=== PATIENT | female | born 1970 | race Caucasian/White ===

== ENCOUNTER 2017-10-26 20:07 | Emergency (ER) | payer SELFPAY | END 2017-10-26 23:48 | disposition home or self-care (01) | LOC: ERS 20:07 | DX: E11.65 Type 2 diabetes mellitus with hyperglycemia (principal); E11.40 Type 2 diabetes mellitus with diabetic neuropathy, unspecified; F32.9 Major depressive disorder, single episode, unspecified; I10 Essential (primary) hypertension; E78.5 Hyperlipidemia, unspecified; F41.9 Anxiety disorder, unspecified; F17.210 Nicotine dependence, cigarettes, uncomplicated; Z79.84 Long term (current) use of oral hypoglycemic drugs | CPT/HCPCS: 36416; 93005 ==

== ENCOUNTER 2018-02-15 12:01 | Emergency (ER) | payer SELFPAY ==
[2018-02-15] MEDS ORDERED: Lorazepam 2 MG/ML VIAL ONE (13:13)
--- NOTE | 2018-02-15 13:30 | RAD ---
CHEST ONE VIEW: HISTORY: Chest pain. Shortness of breath. COMPARISON: 10/26/2017 FINDINGS: Heart size is within normal limits. There are postop sternotomy changes. The lungs are clear of inf iltrates. IMPRESSION: No active intrathoracic disease. POS: [facility]
[2018-02-15 13:40] LABS: #Basophils 0.1 thou/uL (0.0-0.2); #Eosinphils 0.3 thou/uL (0.0-0.7); #Lymphocytes 2.4 thou/uL (1.20-3.40); #Monocytes 0.6 thou/uL (0.11-0.59); #Neutrophils 4.1 thou/uL (1.40-6.50); %Basophils 0.8 % (0.0-1.0); %Eosinophils 3.5 % (0.0-10.0); %Lymphocytes 32.6 % (21.0-51.0); %Monocytes 8.4 % (0.0-10.0); %Neutrophils 54.7 % (42.0-75.0); Hemoglobin 13.1 g/dL (12.0-16.0); Mean Corpuscular HGB CONC 32.2 g/dL (32.0-36.0); Mean Corpuscular Hemoglobin 28.6 pg (27.0-31.0); Mean Corpuscular Volume 88.8 fL (78.0-98.0); Mean Platelet Volume 7.4 fL (7.4-10.4); Platelet Count 284 thou/uL (130-400); RBC Distribution Width 10.9 % (11.5-14.5); Red Blood Cell (RBC) Count 4.58 mill/uL (4.20-5.40); White Blood Cell (WBC) Count 7.5 thou/uL (4.8-10.8)
[2018-02-15 14:07] LABS: ALT (SGPT) 43 U/L (8-55); AST (SGOT) 33 U/L (5-34); Albumin 3.6 g/dL (3.5-5.0); Alkaline Phosphatase 89 U/L (40-150); Anion Gap 15 mmol/L (10-20); BUN (Urea Nitrogen) 18 mg/dL (7.0-18.7); Bilirubin, Total 0.4 mg/dL (0.2-1.2); CK (CPK) 47 U/L (29-168); Calc. Creatinine Clearance 0 mL/min (70-130); Calcium 9.5 mg/dL (7.8-10.44); Carbon Dioxide 28 mmol/L (22-29); Chloride 94 mmol/L (98-107); Estimated GFR-MDRD 42; Globulin 3.6 g/dL (2.4-3.5); Glucose 361 mg/dL (70-105); Lipase 49 U/L (8-78); Potassium 4.3 mmol/L (3.5-5.1); Protein, Total 7.2 g/dL (6.0-8.3); Sodium 133 mmol/L (136-145)
[2018-02-15 14:11] LABS: CKMB 1.3 ng/mL (0-6.6); Troponin I Less than 0.010 ng/mL (< 0.028)
[2018-02-15 14:43] LABS: Bilirubin Negative (Negative); Blood, Urine Small (Negative); Clarity CLOUDY (Clear); Glucose, Urine (Dipstick) 500 mg/dL (Negative); Leukocyte Moderate (Negative); Nitrite Negative (Negative); Protein, Urine (Dipstick) 100 mg/dL (Neg-Trace); Specific Gravity, Urine 1.008 (1.002-1.036); Urobilinogen 0.2 mg/dL (0.2-1.0); pH, Urine 6.5 (5.0-9.0)
[2018-02-15 14:46] LABS: Bacteria/HPF 4+ HPF (None Seen); Hyaline Casts/LPF 0-3 HYALINE CAST LPF (0-3 Hyaline); Squamous Epithelial 0-3 HPF (0-3)
--- NOTE | 2018-02-15 15:41 | CT ---
CT BRAIN WITHOUT CONTRAST: HISTORY: Headache, dizziness, fall a week ago with trauma to the head. FINDINGS: No evidence of infarct, hemorrhage, midline shift, or abnormal extraaxial fluid collections is seen. The ventricular size is normal and the basilar cisterns are patent. The bony calvarium is intact. There is a suggestion of an age-indeterminate fracture involving the right orbit. There is mucosal d isease in the left ethmoid sinuses. IMPRESSION: 1. No CT evidence of acute intracranial process. 2. Age-indeterminate probable right orbital fracture. Further evaluation with CT scan of the facia l bones is recommended. POS: [facility]
--- NOTE | 2018-02-15 15:50 | CT ---
CT FACE NONCONTRAST: Date: 02/15/18 HISTORY: Fall with facial injury. Abnormal CT head. FINDINGS: Coronal images best demonstrate inferior orbital fat protruding through the orbital floor. This measu res up to 1.1 cm diameter. It is very well circumscribed with well corticated margins of the cortical floor osseous defect. No fluid within the right maxillary sinus. The inferior rectus muscle is withi n normal limits. The mandible, globes, and zygomatic arches are intact. Mucosal thickening is apparent within the left ethmoid air cells without defect of the lamina papyracea. IMPRESSION: Abnormal involving the right orbital floor has the appearance of an old injury with protrusion of orb ital fat through the defect. No acute fractures are apparent. POS: [facility]
[2018-02-15 17:18] LABS: Troponin I Less than 0.010 ng/mL (< 0.028)
[2018-02-15] MEDS ORDERED: Morphine 2 MG/ML SYRINGE ONE (17:53)
[2018-02-15] MEDS ORDERED: diphenhydrAMINE 12.5 MG/5 ML UDCUP ONE (18:11)
--- NOTE | 2018-02-19 23:24 | EKG ---
Test Reason : Blood Pressure : / mmHG Vent. Rate : 088 BPM Atrial Rate : 088 BPM P-R Int : 130 ms QRS Dur : 064 ms QT Int : 368 ms P-R-T Axes : 056 020 096 degrees QTc Int : 445 ms Normal sinus rhythm Abnormal QRS-T angle, consider primary T wave abnormality Abnormal ECG Confirmed by JENNIFER ROBERTS DO ([id number]), assistant editor MAKENZIE VARGAS ([id number]) on 02/19/2018 11:24:33 PM Referred By: Confirmed By:JENNIFER ROBERTS DO
== END 2018-02-15 18:44 | disposition home or self-care (01) ==
LOC: ERS 12:01
DX: F41.9 Anxiety disorder, unspecified (principal); N39.0 Urinary tract infection, site not specified; I10 Essential (primary) hypertension; E11.9 Type 2 diabetes mellitus without complications; E78.5 Hyperlipidemia, unspecified; F32.9 Major depressive disorder, single episode, unspecified; Z79.84 Long term (current) use of oral hypoglycemic drugs; Z79.899 Other long term (current) drug therapy; Z79.82 Long term (current) use of aspirin
CPT/HCPCS: 36415; 36416; 70450; 70486; 71045; 80053; 81003; 81015; 82010; 82553; 83690; 83880; 84484; 85025; 85379; 87077; 87086; 87186; 93005; 96361; 96374; 96375; J2060; J2270

== ENCOUNTER 2018-04-22 12:53 | Observation (INO) | payer SELFPAY ==
[2018-04-22 13:28] LABS: #Eosinphils 0.3 thou/uL (0.0-0.7); #Lymphocytes 2.8 thou/uL (1.20-3.40); #Monocytes 0.5 thou/uL (0.11-0.59); #Neutrophils 4.3 thou/uL (1.40-6.50); %Basophils 0.5 % (0.0-1.0); %Eosinophils 3.6 % (0.0-10.0); %Monocytes 6.2 % (0.0-10.0); %Neutrophils 54.8 % (42.0-75.0); Hemoglobin 13.3 g/dL (12.0-16.0); Mean Corpuscular HGB CONC 35.2 g/dL (32.0-36.0); Mean Corpuscular Volume 88.1 fL (78.0-98.0); Mean Platelet Volume 8.2 fL (7.4-10.4); Platelet Count 259 thou/uL (130-400); RBC Distribution Width 11.4 % (11.5-14.5); White Blood Cell (WBC) Count 7.9 thou/uL (4.8-10.8)
[2018-04-22 13:55] LABS: ALT (SGPT) 34 U/L (8-55); AST (SGOT) 34 U/L (5-34); Albumin 3.8 g/dL (3.5-5.0); Alkaline Phosphatase 95 U/L (40-150); Anion Gap 14 mmol/L (10-20); BUN (Urea Nitrogen) 18 mg/dL (7.0-18.7); Bilirubin, Total 0.5 mg/dL (0.2-1.2); Calc. Creatinine Clearance 0 mL/min (70-130); Calcium 10.3 mg/dL (7.8-10.44); Carbon Dioxide 26 mmol/L (22-29); Chloride 96 mmol/L (98-107); Estimated GFR-MDRD 45; Glucose 390 mg/dL (70-105); Potassium 5.3 mmol/L (3.5-5.1); Protein, Total 7.8 g/dL (6.0-8.3); Sodium 131 mmol/L (136-145)
--- NOTE | 2018-04-22 16:25 | RAD ---
CHEST TWO VIEWS: HISTORY: Abnormal blood sugar and potassium. COMPARISON: 04/10/2016 FINDINGS: Sternotomy wires are noted. Normal cardiac silhouette. The pulmonary vessels and hilum are normal. Costophrenic angles are clear. No masses or consolidation. No pneumothorax or osseous abnormality. Old right clavicle injury is noted. IMPRESSION: No acute cardiopulmonary process. POS: [facility]
[2018-04-22 17:22] LABS: Bilirubin Negative (Negative); Blood, Urine Trace (Negative); Clarity CLEAR (Clear); Glucose, Urine (Dipstick) >=1000 mg/dL (Negative); Leukocyte Trace (Negative); Nitrite Negative (Negative); Protein, Urine (Dipstick) 100 mg/dL (Neg-Trace); Specific Gravity, Urine 1.016 (1.002-1.036)
[2018-04-22 17:24] LABS: Bacteria/HPF 2+ HPF (None Seen); Hyaline Casts/LPF 0-3 HYALINE CAST LPF (0-3 Hyaline); Squamous Epithelial 0-3 HPF (0-3)
[2018-04-22 19:09] LABS: Troponin I Less than 0.010 ng/mL (< 0.028)
[2018-04-22 20:55] LABS: Troponin I Less than 0.010 ng/mL (< 0.028)
[2018-04-22 23:00] VITALS: BMI 23.9
[2018-04-22] MEDS ORDERED: Acetaminophen 650 MG Suppository PR PRN (23:27)
[2018-04-22] MEDS ORDERED: Bisacodyl 5 MG TAB PO PRN (23:27)
[2018-04-22] MEDS ORDERED: Acetaminophen 325 MG TAB PO PRN (23:27)
[2018-04-22] MEDS ORDERED: Nitroglycerin 0.4 MG TAB (25 Tab Bottle) SL PRN (23:27)
[2018-04-22] MEDS ORDERED: Dextrose 5% in Water 1,000 ML IV PRN (23:34)
[2018-04-22] MEDS ORDERED: Dextrose 50% Abboject 50 ML SYRINGE SLOW IVP PRN (23:34)
[2018-04-23] MEDS ORDERED: HumaLOG 300 UNITS/3 ML VIAL SC PRN (00:22)
--- NOTE | 2018-04-23 00:27 | HP ---
PRIMARY CARE PROVIDER: At [facility]. CHIEF COMPLAINT: Chest pain. HISTORY OF PRESENT ILLNESS: Ms. Guaman is a pleasant 48-year-old lady, who was seen at [facility] on 04/22/1018. She was sent to the emergency room by her primary care provider. She reports that she had coronary artery bypass graft in 09/[address] Meryl Farley in [place]. Her stopper maker helper is Dr. Davis in [place]. She also reports that she had to have a procedure to drain fluid from lungs in 09/2017, two days after her surgery. She reports that she has had on and off shortness of breath since her surgery. Over the last week, she started having left-sided chest pain. She reports that it is on and off, nonradiating, accompanied by worsening shortness of breath. It initially started when she was carrying a gallon of milk. She reports that the chest pain is worse with exertion, improved with rest. She denies any nausea. She also reports epigastric discomfort, but is unable to clarify it further. She was seen by her primary care provider. She was found to have mild elevation of potassium. She was sent to the emergency room for further evaluation. REVIEW OF SYSTEMS: All other systems reviewed and found to be negative. PAST MEDICAL HISTORY: Coronary artery disease, hepatitis C, condyloma acuminatum, peripheral neuropathy, hypertension, diabetes mellitus type 2, and dyslipidemia. PAST SURGICAL HISTORY: Coronary artery bypass graft surgery, three vessels on 09/20/2017. PSYCHIATRIC HISTORY: Anxiety and depression. SOCIAL HISTORY: The patient denies tobacco use, alcohol use, and recreational drug use. She ambulates with a cane. FAMILY HISTORY: Significant for coronary artery disease in both of parents. ALLERGIES: CODEINE, DEMEROL, AND PENICILLIN. CURRENT MEDICATIONS: 1. Aspirin 81 mg daily. 2. Nitroglycerin p.r.n. 3. Atorvastatin 80 mg at bedtime. 4. Celexa 40 mg daily. 5. Plavix 75 mg daily. 6. Lasix 60 mg daily. 7. Gabapentin 100 mg three times a day. 8. Metformin 1000 mg 2 times a day. 9. Lopressor 12.5 mg two times a day. 10. Januvia 100 mg daily. PHYSICAL EXAMINATION: GENERAL: Ms. Guaman is awake and alert, not in acute distress. VITAL SIGNS: Blood pressure is 114/89, pulse 85, respiratory rate 17, and oxygen saturation 97% on room air. She is afebrile. EYES: No scleral icterus, no conjunctival pallor. ENT: Moist mucosal membranes. No oropharyngeal erythema or exudates. NECK: Supple, nontender, trachea is midline. RESPIRATORY: Accessory muscles of breathing are not active. Chest wall movements are symmetric bilaterally. LUNGS: Clear to auscultation without wheeze, rhonchi, or crepitations. CARDIOVASCULAR: S1 and S2 are heard, regular. Peripheral pulses palpable. No carotid bruit. No pericardial rub. ABDOMEN: Soft and nontender. Bowel sounds heard. No hepatomegaly. No splenomegaly. NEUROLOGIC: Cranial nerves 2 through 12 are intact. Deep tendon reflexes 2+. MUSCULOSKELETAL: Palpable chest wall tenderness over the left upper chest. Power is 5/5 in all four extremities. SKIN: No rashes or subcutaneous nodules. LYMPHATIC: No cervical lymphadenopathy. PSYCHIATRIC: Normal mood. Normal affect. The patient is oriented to person, place, and time. LABORATORY DATA: Ms. Guaman labs and investigations were reviewed. I reviewed her electrocardiogram, which shows normal sinus rhythm. No ST changes to suggest an acute coronary syndrome. I also reviewed her chest x-ray, which does not show any pulmonary infiltrates. She has an unremarkable CBC, decreased sodium of 131, mildly elevated potassium of 5.3, normal blood urea nitrogen, elevated creatinine of 1.26, last known creatinine 1.34 on 02/15/2018, unremarkable liver profile and troponin-I that is negative x3. Blood glucose is 390. ASSESSMENT AND PLAN: Ms. Guaman is a pleasant 48-year-old lady, who was seen at [facility] on 04/22/2018. Her problem list includes: 1. Chest pain: Ms. Guaman presenting with chest pain. She has significant cardiac history including coronary artery bypass graft. She will be admitted to the hospital for further management including telemetry monitoring and I will also obtain a stress test. Her chest pain is atypical in the sense that she has reproducible tenderness over the left upper chest wall; however, she also reports pain over the left lower chest wall and there is no reproducible tenderness at this point. We will also check D-dimer. 2. Diabetes mellitus type 2: Poorly controlled. We will start her on Accu-Cheks and insulin sliding scale. 3. Hypertension: We will resume home medications, monitor vital signs and titrate antihypertensives as needed. 4. Dyslipidemia: We will continue statin. 5. Chronic kidney disease: Appears to be stable. 6. Hyperkalemia: Mild. We will administer Kayexalate and recheck potassium level. Many thanks for allowing me to participate in your patient's care. Please feel free to contact me with any questions or concerns. LEVEL OF RISK: High. LEVEL OF COMPLEXITY: High. Job ID: [id number]
[2018-04-23 05:15] LABS: #Basophils 0.1 thou/uL (0.0-0.2); #Eosinphils 0.3 thou/uL (0.0-0.7); #Lymphocytes 2.2 thou/uL (1.20-3.40); #Monocytes 0.6 thou/uL (0.11-0.59); #Neutrophils 3.9 thou/uL (1.40-6.50); %Basophils 1.7 % (0.0-1.0); %Eosinophils 3.8 % (0.0-10.0); %Lymphocytes 30.6 % (21.0-51.0); %Monocytes 8.9 % (0.0-10.0); %Neutrophils 55.1 % (42.0-75.0); Hemoglobin 13.1 g/dL (12.0-16.0); Mean Corpuscular HGB CONC 34.8 g/dL (32.0-36.0); Mean Corpuscular Hemoglobin 30.7 pg (27.0-31.0); Mean Corpuscular Volume 88.2 fL (78.0-98.0); Mean Platelet Volume 8.1 fL (7.4-10.4); Platelet Count 234 thou/uL (130-400); RBC Distribution Width 11.5 % (11.5-14.5); Red Blood Cell (RBC) Count 4.27 mill/uL (4.20-5.40); White Blood Cell (WBC) Count 7.1 thou/uL (4.8-10.8)
[2018-04-23 05:25] LABS: Anion Gap 14 mmol/L (10-20); BUN (Urea Nitrogen) 19 mg/dL (7.0-18.7); Calc. Creatinine Clearance 54 mL/min (70-130); Calcium 9.5 mg/dL (7.8-10.44); Carbon Dioxide 31 mmol/L (22-29); Chloride 98 mmol/L (98-107); Estimated GFR-MDRD 48; Glucose 329 mg/dL (70-105); Potassium 3.7 mmol/L (3.5-5.1); Sodium 139 mmol/L (136-145)
[2018-04-23] MEDS: HumaLOG 300 UNITS/3 ML VIAL SC PRN ×3 (05:55→17:00)
[2018-04-23] MEDS: Gabapentin 100 MG CAP PO SCH ×2 (05:55→16:20)
[2018-04-23] MEDS ORDERED: Furosemide 20 MG TAB PO SCH (09:00)
[2018-04-23] MEDS ORDERED: Enoxaparin Sodium 30 MG/0.3 ML SYRINGE SC SCH (09:00)
[2018-04-23] MEDS ORDERED: Clopidogrel Bisulfate 75 MG TAB PO SCH (09:00)
[2018-04-23] MEDS ORDERED: Citalopram 20 MG TAB PO SCH (09:00)
[2018-04-23] MEDS ORDERED: Alogliptin 6.25 MG TAB PO SCH (09:00)
[2018-04-23] MEDS ORDERED: Metoprolol Tartrate 25 MG TAB PO SCH (09:00)
[2018-04-23] MEDS ORDERED: ADENOSINE 60 MG/20 ML VIAL ONE (09:21)
[2018-04-23] MEDS ORDERED: Ondansetron PF 4 MG/2 ML Vial IVP PRN (10:52)
[2018-04-23 15:57] VITALS: BP 120/71; TEMP 97.3
--- NOTE | 2018-04-23 16:07 | NM ---
NUCLEAR MEDICINE CARDIAC STRESS TEST WITH EJECTION FRACTION: HISTORY: Chest pain. Hypertension. COMPARISON: None. TECHNIQUE: Stress and rest was performed after the intravenous administration of 30 and 9 mCi technetium-99m ses tamibi intravenously, respectively. FINDINGS: Adequate left ventricular uptake of radiotracer. Large lateral inferior wall scar with small area of periinfarct ischemia. Wall motion is normal. Ejection fraction of over 70%. IMPRESSION: Large lateral inferior wall scar with periinfarct ischemia. Ejection fraction is normal, as well as w all motion. POS: [facility]
[2018-04-23] MEDS ORDERED: Sodium Chloride 0.9% 500 ML IV SCH (17:15)
[2018-04-23] MEDS ORDERED: Atorvastatin Calcium 40 MG TAB PO SCH (21:00)
--- NOTE | 2018-04-30 20:16 | EKG ---
Test Reason : Blood Pressure : / mmHG Vent. Rate : 071 BPM Atrial Rate : 071 BPM P-R Int : 132 ms QRS Dur : 076 ms QT Int : 398 ms P-R-T Axes : 055 018 080 degrees QTc Int : 432 ms Normal sinus rhythm Possible Left atrial enlargement Confirmed by CARISSA DENNIS ([id number]), advertising editor MAKENZIE VARGAS ([id number]) on 04/30/2018 8:16:06 PM Referred By: Confirmed By:CARISSA DENNIS
== END 2018-04-23 18:49 | disposition home or self-care (01) ==
LOC: ERS 12:53 → ONC 17:37 → 2SW 04-23 01:00
PROVIDERS: ADMIT Family Medicine; ATTEND Family Medicine
DX: R07.89 Other chest pain (principal); I25.10 Atherosclerotic heart disease of native coronary artery without angina pectoris; I12.9 Hypertensive chronic kidney disease with stage 1 through stage 4 chronic kidney disease, or unspecified chronic kidney disease; E11.22 Type 2 diabetes mellitus with diabetic chronic kidney disease; N18.9 Chronic kidney disease, unspecified; E11.42 Type 2 diabetes mellitus with diabetic polyneuropathy; E78.5 Hyperlipidemia, unspecified; F41.9 Anxiety disorder, unspecified; F32.9 Major depressive disorder, single episode, unspecified; E87.5 Hyperkalemia; Z79.02 Long term (current) use of antithrombotics/antiplatelets; Z79.82 Long term (current) use of aspirin; Z79.84 Long term (current) use of oral hypoglycemic drugs; Z79.899 Other long term (current) drug therapy; Z88.0 Allergy status to penicillin; Z88.5 Allergy status to narcotic agent; Z95.5 Presence of coronary angioplasty implant and graft
CPT/HCPCS: 36415; 36416; 71046; 78452; 80048; 80053; 81003; 81015; 82550; 84484; 85025; 85379; 87077; 87086; 87186; 87804; 93005; 93017; 94760; 96360; 96361; 96372; 96374; A9500; G0378; J0153; J1650; J2405

== ENCOUNTER 2019-02-02 13:00 | Observation (INO) | payer OTHER, SELFPAY ==
[2019-02-02 13:41] LABS: #Basophils 0.1 thou/uL (0.0-0.2); #Eosinphils 0.2 thou/uL (0.0-0.7); #Lymphocytes 2.4 thou/uL (1.20-3.40); #Monocytes 0.6 thou/uL (0.11-0.59); #Neutrophils 5.1 thou/uL (1.40-6.50); %Basophils 1.3 % (0.0-1.0); %Eosinophils 2.7 % (0.0-10.0); %Lymphocytes 28.1 % (21.0-51.0); %Monocytes 7.5 % (0.0-10.0); %Neutrophils 60.5 % (42.0-75.0); Hemoglobin 12.3 g/dL (12.0-16.0); Mean Corpuscular HGB CONC 33.7 g/dL (32.0-36.0); Mean Corpuscular Hemoglobin 31.3 pg (27.0-31.0); Mean Corpuscular Volume 92.8 fL (78.0-98.0); Mean Platelet Volume 7.5 fL (7.4-10.4); Platelet Count 270 thou/uL (130-400); RBC Distribution Width 12.9 % (11.5-14.5); Red Blood Cell (RBC) Count 3.91 mill/uL (4.20-5.40); White Blood Cell (WBC) Count 8.4 thou/uL (4.8-10.8)
--- NOTE | 2019-02-02 13:45 | RAD ---
EXAM: Single view of the chest HISTORY: Dyspnea and shortness of breath COMPARISON: 09/27/2018 FINDINGS: Single view of the chest shows a normal sized cardiomediastinal silhouette. The patient is status post CABG. There are small bilateral pleural effusions, right greater than left. Adjacent atelectasis versus infiltrate may be present in the right lung base. The bones are unremarkable. IMPRESSION: 1. Bilateral pleural effusions 2. Right basilar atelectasis versus infiltrate
[2019-02-02 14:07] LABS: ALT (SGPT) 12 U/L (8-55); AST (SGOT) 17 U/L (5-34); Albumin 3.4 g/dL (3.5-5.0); Alkaline Phosphatase 63 U/L (40-110); Anion Gap 14 mmol/L (10-20); BUN (Urea Nitrogen) 12 mg/dL (7.0-18.7); Bilirubin, Total 0.5 mg/dL (0.2-1.2); Calc. Creatinine Clearance 0 mL/min (70-130); Calcium 8.3 mg/dL (7.8-10.44); Carbon Dioxide 26 mmol/L (22-29); Chloride 101 mmol/L (98-107); Estimated GFR-MDRD 51; Globulin 3.6 g/dL (2.4-3.5); Glucose 164 mg/dL (70-105); Potassium 4.5 mmol/L (3.5-5.1); Sodium 136 mmol/L (136-145)
[2019-02-02 16:46] LABS: Bacteria/HPF 4+ HPF (None Seen); Bilirubin Negative (Negative); Blood, Urine 1+ (Negative); Clarity Clear (Clear); Glucose, Urine (Dipstick) Normal (Negative); Leukocyte Negative Leu/uL (Negative); Nitrite Negative (Negative); Protein, Urine (Dipstick) 300 mg/dL (Neg-Trace); Squamous Epithelial 0-3 HPF (0-3); Urobilinogen Normal mg/dL (Less than 2); WBC/HPF 0-3 HPF (0-3)
[2019-02-02 17:04] VITALS: BMI 25.1
[2019-02-02] MEDS ORDERED: traMADol HCl 50 MG TAB PO PRN (17:16)
[2019-02-02] MEDS ORDERED: Nitroglycerin 0.4 MG TAB (25 Tab Bottle) SL PRN (17:16)
[2019-02-02] MEDS ORDERED: Ondansetron ODT 4 MG TAB PO PRN (17:18)
[2019-02-02] MEDS ORDERED: Acetaminophen 325 MG TAB PO PRN (17:18)
[2019-02-02] MEDS ORDERED: Ondansetron PF 4 MG/2 ML Vial IVP PRN (17:18)
[2019-02-02] MEDS ORDERED: Furosemide 40 MG/4 ML VIAL SLOW IVP SCH (17:30)
[2019-02-02 17:31] LABS: Troponin I Less than 0.010 ng/mL (< 0.028)
[2019-02-02] MEDS ORDERED: Dextrose 50% Abboject 50 ML SYRINGE SLOW IVP PRN (18:07)
[2019-02-02] MEDS ORDERED: Dextrose 5% in Water 1,000 ML IV PRN (18:07)
[2019-02-02] MEDS ORDERED: HumaLOG 300 UNITS/3 ML VIAL SC PRN ×2 (18:07)
[2019-02-02] MEDS: Gabapentin 100 MG CAP PO SCH (19:54)
[2019-02-02] MEDS: Metoprolol Tartrate 25 MG TAB PO SCH (19:55)
[2019-02-02 20:06] LABS: Troponin I Less than 0.010 ng/mL (< 0.028)
[2019-02-02] MEDS ORDERED: Atorvastatin Calcium 40 MG TAB PO SCH (21:00)
--- NOTE | 2019-02-03 00:52 | HP ---
PRIMARY CARE PHYSICIAN: Dr. Carolina Nunn. CHIEF COMPLAINT: Chest pain. HISTORY OF PRESENT ILLNESS: Ms. Mcmahon is a 48-year-old female with past medical history of hypertension, hyperlipidemia, coronary artery disease status post CABG x3 vessels one year ago, peripheral vascular disease, diabetes mellitus type 2, who presents to the ED earlier today due to worsening chest pain and shortness of breath that started 2 days ago. She is also complained of nausea, vomiting, diarrhea over the last week. She states that the pain is substernal and is worse with activity. She was given nitroglycerin in the ED, which had helped with her symptoms. During her initial workup, her troponin was found to be negative x2. Her BNP was elevated at 609.4. She states that she sees Dr. Rebolledo as a tonguer, which she states that she has not seen him in quite a while. She had a CABG in [place] in 2018. She otherwise denies any fever, chills, any headache, blurred vision, dizziness, any palpitations, or abdominal pain. Her portable chest x-ray revealed bilateral pleural effusions and she states that she has noticed some swelling down her lower extremities. She states that Dr. Rebolledo has been trying to get her set up to have balloon and stents in her legs for her underlying PAD. However, due to her [employer] insurance, this has been a problem for her as they would like this to be done in [place]. However, due to some problems with transportation, this has not been done yet. REVIEW OF SYSTEMS: All other systems reviewed and found to be negative unless mentioned in the HPI. PAST MEDICAL HISTORY: Hypertension, hyperlipidemia, coronary artery disease, diabetes mellitus type 2, PAD, hepatitis C. PAST SURGICAL HISTORY: Coronary artery bypass graft x3 vessels, cholecystectomy, and thoracostomy. PSYCHIATRIC HISTORY: Anxiety and depression. SOCIAL HISTORY: The patient denies alcohol, tobacco, or illicit drug use. KNOWN ALLERGIES: Codeine, penicillins, orange, and meperidine. CURRENT HOME MEDICATIONS: 1. Clopidogrel 75 mg daily. 2. Furosemide 60 mg daily. 3. Metformin 1000 mg b.i.d. 4. Aspirin 81 mg daily. 5. Atorvastatin 80 mg at bedtime. 6. Citalopram 40 mg daily. 7. Gabapentin 100 mg t.i.d. 8. Glimepiride 4 mg b.i.d. 9. Metoprolol 12.5 mg b.i.d. 10. Nitroglycerin 0.4 mg sublingual q.5 minutes as needed for chest pain. 11. Januvia 100 mg daily. 12. Tramadol 50 mg q.i.d. p.r.n. pain. PHYSICAL EXAMINATION: VITAL SIGNS: Blood pressure 147/69, pulse 71, respirations 20, temperature 97.7, O2 saturation 99% on room air. GENERAL: The patient is awake, alert, and oriented x3. She is currently lying comfortably in bed and in no acute distress. HEENT: Atraumatic, normocephalic. Pupils are round and reactive to light. Extraocular muscles intact. Moist mucous membranes noted. NECK: Soft and supple. Trachea midline. CARDIOVASCULAR: Positive S1 and S2. Regular rate and rhythm. LUNGS: Clear to auscultation bilaterally without wheezes, rales, or rhonchi. However, she does appear to have some mild diminished non-breath sounds at the bases. ABDOMEN: Soft, nontender. Bowel sounds present. EXTREMITIES: Moves all extremities equal. Strength 5+ bilaterally upper and lower extremities. Trace edema noted in her bilateral lower extremities. NEUROLOGIC: Cranial nerves 2 through 12 grossly intact. No focal deficits noted. Speech intact and normal. Gait not assessed. SKIN: Warm, dry, and intact. No rashes. No ulceration noted. PSYCHIATRIC: Good mood and affect. LABORATORY DATA: WBC 8.4, RBC 3.91, hemoglobin 12.3, hematocrit 36.3, platelets 270. Sodium 136, potassium 4.5, anion gap 14, BUN 12, creatinine 1.13, estimated GFR 51, glucose 164. Troponin less than 0.010 x2. BNP 609.4. DIAGNOSTIC IMAGING: Portable chest x-ray showed bilateral pleural effusions, right basilar atelectasis versus infiltrate. ASSESSMENT AND PLAN: 1. Atypical chest pain, now her chest pain resolved after the use of nitroglycerin. So far, her cardiac enzymes are negative x2. She had a recent cardiac stress test within the last 12 months in April 2018 which displayed scarring, otherwise unremarkable. Her primary tonguer is Dr. Rebolledo. We will order an echocardiogram due to her bump in BNP and also noted to be slightly fluid overloaded, and we will treat with IV furosemide 40 mg. 2. Congestive heart failure exacerbation and as above, we will check an echocardiogram and treat symptomatically with IV Lasix along with her home regimen at this time. 3. Hypertension. 4. Hyperlipidemia. 5. Coronary artery disease. 6. Diabetes mellitus type 2. Continue home regimen and add an insulin sliding scale with frequent Accu-Cheks. 7. History of peripheral artery disease. 8. Deep venous thrombosis and gastrointestinal prophylaxis. 9. Code status, full code. 10. Disposition, pending further workup and clinical findings. Job ID: [id number]
[2019-02-03 04:35] LABS: #Basophils 0.1 thou/uL (0.0-0.2); #Eosinphils 0.3 thou/uL (0.0-0.7); #Monocytes 0.6 thou/uL (0.11-0.59); #Neutrophils 3.7 thou/uL (1.40-6.50); %Basophils 1.2 % (0.0-1.0); %Eosinophils 4.1 % (0.0-10.0); %Lymphocytes 29.7 % (21.0-51.0); %Monocytes 8.8 % (0.0-10.0); %Neutrophils 56.2 % (42.0-75.0); Hemoglobin 10.9 g/dL (12.0-16.0); Mean Corpuscular HGB CONC 34.2 g/dL (32.0-36.0); Mean Corpuscular Hemoglobin 31.4 pg (27.0-31.0); Mean Corpuscular Volume 91.9 fL (78.0-98.0); Mean Platelet Volume 7.5 fL (7.4-10.4); Platelet Count 248 thou/uL (130-400); RBC Distribution Width 12.7 % (11.5-14.5); Red Blood Cell (RBC) Count 3.48 mill/uL (4.20-5.40); White Blood Cell (WBC) Count 6.7 thou/uL (4.8-10.8)
[2019-02-03 04:57] LABS: Anion Gap 10 mmol/L (10-20); BUN (Urea Nitrogen) 12 mg/dL (7.0-18.7); Calc. Creatinine Clearance 68 mL/min (70-130); Calcium 8.6 mg/dL (7.8-10.44); Carbon Dioxide 28 mmol/L (22-29); Cardiac Risk 4.7 (Less than 4.5); Chloride 101 mmol/L (98-107); Cholesterol 123 mg/dl (< 200 Desired); Estimated GFR-MDRD 60; Glucose 192 mg/dL (70-105); HDL Cholesterol 26 mg/dL (>60 Neg Risk); LDL Cholesterol, Calculated 57 mg/dL; Magnesium 1.7 mg/dL (1.6-2.6); Potassium 3.8 mmol/L (3.5-5.1); Sodium 135 mmol/L (136-145); Triglycerides 201 mg/dL (Less than 150)
[2019-02-03] MEDS ORDERED: Glimepiride 4 MG TAB PO SCH (08:00)
[2019-02-03] MEDS ORDERED: Furosemide 40 MG/4 ML VIAL SLOW IVP SCH (09:00)
[2019-02-03] MEDS ORDERED: Citalopram 20 MG TAB PO SCH (09:00)
[2019-02-03] MEDS ORDERED: Alogliptin 25 MG TAB PO SCH (09:00)
[2019-02-03] MEDS ORDERED: Enoxaparin Sodium 40 MG/0.4 ML SYRINGE SC SCH (09:00)
[2019-02-03] MEDS ORDERED: Aspirin Chewable 81 MG TAB PO SCH (09:00)
[2019-02-03] MEDS: Gabapentin 100 MG CAP PO SCH ×2 (09:28→16:01)
[2019-02-03 11:55] VITALS: BP 141/67; TEMP 98.3
[2019-02-03] MEDS: Metoprolol Tartrate 25 MG TAB PO SCH (12:59)
[2019-02-03] MEDS ORDERED: FLU VACC QS2019-20(6MOS UP)/PF 60 MCG/0.5 ML SYRINGE IM ONE (17:15)
[2019-02-03] MEDS ORDERED: Insulin Glargine 10 UNITS in Pre-Filled Syringe 1 EACH SC SCH (21:00)
--- NOTE | 2019-02-04 15:48 | EKG ---
Test Reason : CP Blood Pressure : / mmHG Vent. Rate : 065 BPM Atrial Rate : 065 BPM P-R Int : 124 ms QRS Dur : 074 ms QT Int : 438 ms P-R-T Axes : 052 009 079 degrees QTc Int : 455 ms Normal sinus rhythm Anterior infarct , age undetermined Abnormal ECG Confirmed by LAVERNE WILSON ([id number]), content editor EMILIA SINGH ([id number]) on 02/04/2019 3:48:04 PM Referred By: Confirmed By:LAVERNE WILSON
== END 2019-02-03 16:05 | disposition home or self-care (01) ==
LOC: ERS 13:00 → 2SW 15:12
PROVIDERS: ADMIT Internal Medicine; ATTEND Internal Medicine
DX: R07.89 Other chest pain (principal); E78.5 Hyperlipidemia, unspecified; I25.10 Atherosclerotic heart disease of native coronary artery without angina pectoris; E11.9 Type 2 diabetes mellitus without complications; F41.9 Anxiety disorder, unspecified; F32.9 Major depressive disorder, single episode, unspecified; I11.0 Hypertensive heart disease with heart failure; I50.9 Heart failure, unspecified; Z79.02 Long term (current) use of antithrombotics/antiplatelets; Z79.82 Long term (current) use of aspirin; Z79.84 Long term (current) use of oral hypoglycemic drugs; Z79.899 Other long term (current) drug therapy; Z88.0 Allergy status to penicillin; Z88.5 Allergy status to narcotic agent; Z91.018 Allergy to other foods; Z95.1 Presence of aortocoronary bypass graft
CPT/HCPCS: 36415; 36416; 71045; 80048; 80053; 80061; 81003; 81015; 83735; 83880; 84484; 85025; 87086; 93005; 93306; 96372; 96374; 96376; G0378; J1650; J1815; J1940

== ENCOUNTER 2019-05-03 10:34 | Outpatient (CLI) | payer OTHER ==
--- NOTE | 2019-05-03 11:11 | ULT ---
BILATERAL CAROTID DUPLEX ULTRASOUND: HISTORY: Symptoms and signs involving circulatory system TECHNIQUE: Grayscale, color-flow and spectral Doppler ultrasound imaging of the extracranial carotid artery syst ems was performed bilaterally. FINDINGS: A small amount of plaque is seen in the bifurcations. The peak systolic velocity in the right ICA measures 67 cm/s with an end-diastolic velocity of 22 cm/ s and a systolic ratio of 0.95. The peak systolic velocity in the left ICA measures 98 cm/s with an end-diastolic velocity of 35 cm/s and a systolic ratio of 1.2. Flow in both vertebral arteries remains antegrade. IMPRESSION: No evidence of hemodynamically significant stenosis.
== END 2019-05-03 10:35 | disposition home or self-care (01) ==
LOC: BICULT 10:34
PROVIDERS: ATTEND Nurse Practitioner Family
DX: I73.9 Peripheral vascular disease, unspecified (principal); I25.119 Atherosclerotic heart disease of native coronary artery with unspecified angina pectoris; R09.89 Other specified symptoms and signs involving the circulatory and respiratory systems
CPT/HCPCS: 93880

== ENCOUNTER 2020-03-07 14:02 | Outpatient (CLI) | payer OTHER ==
[2020-03-07] MEDS ORDERED: Iopamidol-370 76% 500 ML 1 ML ONE (14:38)
--- NOTE | 2020-03-07 17:05 | CT ---
CTA OF THE ABDOMEN AND PELVIS WITH BILATERAL LOWER EXTREMITY RUNOFF UTILIZING IV CONTRASTAND 3D REFOR MATTED IMAGIN03/07/20 COMPARISON: None. FINDINGS: ABDOMEN AND PELVIS: There is mild subsegmental volume loss along both lower lobes. Gallbladder is surgically absent. The visualized liver, pancreas, adrenal glands and spleen appear wi thin normal limits. There is mild lobulation involving the kidneys bilaterally, nonspecific. No free fluid or enlarged lymph nodes are evident within the abdomen. Small free fluid in the lower p kelly is nonspecific. There is scattered diverticula involving the colon without evidence of active d iverticulitis. There is a mild amount of retained stool within the colon. The appendix is not definit gaby seen. Small free fluid in the lower pelvis is nonspecific. There is scattered diverticula involvi ng the colon without evidence of active diverticulitis. There is a mild amount of retained stool in t he colon. The appendix is not definitely seen. Small bowel is of normal caliber. No acute osseous abnormality is evident. VASCULATURE: There is moderate atherosclerotic irregularity involving the abdominopelvic vasculature. The celiac is widely patent. There is some mild to moderate atherosclerotic irregularity involving the mid to distal SMA with appr oximately 30% luminal caliber narrowing. There is moderate 50% luminal caliber narrowing involving the origin and proximal aspect of the right renal artery. There is mild luminal narrowing involving the proximal left renal artery. CODI is paten t. There is high grade stenosis approaching near occlusion involving both common iliac arteries with mul tiple segments of the common iliac arteries bilaterally. There is high grade 75% stenosis involving the right external iliac artery. There is 60 to 75% stenos is involving the right common femoral artery. There is multifocal high grade stenosis involving the m id to distal right superficial femoral artery. There is multifocal high grade stenosis involving the right popliteal artery and tibioperoneal trunk. There is at least two vessel runoff to the level of t he ankle via the peroneal and anterior tibial artery. There is complete occlusion involving the origin of the left external iliac artery. There is some rec onstitution of flow within the proximal left external iliac artery. There is multifocal mild to moder ate atherosclerotic irregularity. There is moderate to high grade stenosis involving the common femor al artery. There is complete occlusion of the left superficial femoral artery with reconstitution at the level of the distal SFA near the adductor hiatus. There is multifocal high grade stenosis involvi ng the left popliteal artery with more reconstitution seen at the distal left popliteal artery. Tibio peroneal trunk is patent. The anterior tibial artery is occluded from its origin but reconstitutes wi thin the proximal foreleg. There is at least two vessel runoff via the peroneal and anterior tibial a rtery to the level of the ankle. IMPRESSION: 1. Severe atherosclerotic disease of both lower extremities. There is multifocal near complete o cclusion of both common iliac arteries. There is complete occlusion of the origin of the left externa l iliac artery. There is complete occlusion of the left superficial femoral artery with reconstitutio n at the level of the distal SFA and popliteal artery. There is two vessel runoff to the level of the ankle via the anterior tibial artery and left peroneal artery. The left anterior tibial artery is oc cluded from its origin but does reconstitute within the proximal foreleg. 2. Severe diffuse atherosclerotic narrowing involving the right external iliac artery with sever e narrowing involving the right common femoral artery. There is multifocal high grade stenosis involv ing the right superficial femoral artery and right popliteal artery. There is occlusion of the right posterior tibial artery with two vessel runoff to the level of the right ankle via the right anterior tibial artery and right peroneal artery. 3. Moderate narrowing involving the origin of the proximal aspect of the right renal artery. Mil d narrowing involving the proximal aspect of the left renal artery. 4. Mild to moderate narrowing involving the mid to distal SMA. POS: [facility]
== END 2020-03-07 14:03 | disposition home or self-care (01) ==
LOC: BICCT 14:02
PROVIDERS: ATTEND Internal Medicine Cardiovascular Disease
DX: I70.213 Atherosclerosis of native arteries of extremities with intermittent claudication, bilateral legs (principal); I70.1 Atherosclerosis of renal artery; K55.1 Chronic vascular disorders of intestine
CPT/HCPCS: 75635

== ENCOUNTER 2020-03-14 01:37 | Inpatient (IN) | payer OTHER ==
[2020-03-14 02:19] LABS: #Basophils 0.1 thou/uL (0.0-0.2); #Eosinphils 0.3 thou/uL (0.0-0.7); #Lymphocytes 1.9 thou/uL (1.20-3.40); #Monocytes 1.3 thou/uL (0.11-0.59); #Neutrophils 13.8 thou/uL (1.40-6.50); %Basophils 0.5 % (0.0-1.0); %Eosinophils 1.6 % (0.0-10.0); %Lymphocytes 10.7 % (21.0-51.0); %Monocytes 7.7 % (0.0-10.0); %Neutrophils 79.6 % (42.0-75.0); Hemoglobin 12.5 g/dL (12.0-16.0); Mean Corpuscular HGB CONC 32.9 g/dL (32.0-36.0); Mean Corpuscular Hemoglobin 30.6 pg (27.0-31.0); Mean Corpuscular Volume 92.8 fL (78.0-98.0); Mean Platelet Volume 7.2 fL (7.4-10.4); Platelet Count 325 thou/uL (130-400); RBC Distribution Width 14.2 % (11.5-14.5); Red Blood Cell (RBC) Count 4.08 mill/uL (4.20-5.40); White Blood Cell (WBC) Count 17.4 thou/uL (4.8-10.8)
[2020-03-14 02:40] LABS: ALT (SGPT) Less than 7 U/L (8-55); AST (SGOT) 9 U/L (5-34); Albumin 3.1 g/dL (3.5-5.0); Alkaline Phosphatase 107 U/L (40-110); Anion Gap 16 mmol/L (10-20); BUN (Urea Nitrogen) 22 mg/dL (9.8-20.1); Bilirubin, Total 0.2 mg/dL (0.2-1.2); CRP (Inflammatory) 7.18 mg/dL (= or < 0.5); Calc. Creatinine Clearance 0 mL/min (70-130); Calcium 8.8 mg/dL (7.8-10.44); Carbon Dioxide 24 mmol/L (22-29); Chloride 103 mmol/L (98-107); Estimated GFR-MDRD 31; Globulin 4.4 g/dL (2.4-3.5); Glucose 234 mg/dL (70-105); Potassium 5.8 mmol/L (3.5-5.1); Protein, Total 7.5 g/dL (6.0-8.3); Sodium 137 mmol/L (136-145)
[2020-03-14] MEDS ORDERED: Cefepime 2 GM VIAL ONE (02:42)
[2020-03-14] MEDS ORDERED: Vancomycin 1 GM/200 ML BAG ONE (02:43)
[2020-03-14] MEDS ORDERED: Ondansetron PF 4 MG/2 ML Vial IVP PRN (06:30)
[2020-03-14] MEDS ORDERED: Sodium Chloride 0.9% 1,000 ML IV SCH (06:30)
[2020-03-14] MEDS ORDERED: Ondansetron ODT 4 MG TAB SL PRN (06:30)
[2020-03-14] MEDS: Morphine 4 MG/ML VIAL SLOW IVP PRN ×2 (06:40→11:49)
--- NOTE | 2020-03-14 08:14 | RAD ---
TWO VIEWS LEFT TIBIA AND FIBULA: HISTORY: Chronic left leg pain. Wound infection with possible osteomyelitis. FINDINGS: Two views of the left tibia/fibula show no evidence of acute fracture or dislocation. There may be a ir in the soft tissues in the lower leg. No underlying osseous erosions are seen to suggest osteomye litis. No degenerative changes are seen in the knee or ankle. IMPRESSION: No evidence of acute osseous abnormality. POS: [facility]
--- NOTE | 2020-03-14 09:28 | PDOC.HHP ---
Hospitalist HPI - History of Present Illness Left lower extremity wound pain History of Present Illness: Ms. Mcmahon is a 49-year-old female with a past medical history of severe peripheral vascular disease, chronic wound to left lower extremity, type 2 diabetes mellitus, hypertension, hyperlipidemia, anxiety and depression, hepatitis C, coronary artery disease status post CABG who presents to the emergency room for worsening left lower extremity wound pain. Patient has a chronic nonhealing arterial ulcer to her left lower elkins. She has a history of multiple wound infections with recent admission in November for infected ulcer. Cultures at that time were positive for staph aureus. Patient reports that over the past few days she has noticed increased pain to her left lower extremity and increasing redness. There was plans for her to start a wound VAC as an outpatient sometime next week. Also of note patient underwent on 111 aorta CTA with runoff which revealed severe peripheral vascular disease. In emergency room initial vital signs 151/117, 70, 18, 95% on room air, 98.3. EKG showed normal sinus rhythm. H/H 12.5/37.9, white blood cell count 17.4. BUN/CR 22/1.7. Sodium 137, potassium 5.8. Glucose 234. Lactic acid 1.1 left lower extremity x-ray of tib-fib showed no signs of osseous changes, but question of air and subcutaneous tissues. Patient received vancomycin, cefepime and 2 L of normal saline in the emergency room. Hospitalist ROS - Review of Systems Constitutional: reports: malaise. denies: fever, chills, sweats, weakness, other Eyes: denies: pain, vision change, conjunctivae inflammation, eyelid inflammation, redness, other ENT: denies: ear pain, ear discharge, nose pain, nose discharge, nose congestion, mouth pain, mouth swelling, throat pain, throat swelling, other Respiratory: denies: cough, dry, shortness of breath, hemoptysis, SOB with excertion, pleuritic pain, sputum, wheezing, other Cardiovascular: denies: chest pain, palpitations, orthopnea, paroxysmal noc. dyspnea, edema, light headedness, other Gastrointestinal: denies: nausea, vomiting, abdominal pain, diarrhea, constipation, melena, hematochezia, other Genitourinary: denies: dysuria, frequency, incontinence, hematuria, retention, other Musculoskeletal: reports: leg pain, foot pain. denies: neck pain, shoulder pain, arm pain, back pain, hand pain, other Skin: reports: rash, lesions Neurological: denies: weakness, numbness, incoordination, change in speech, confusion, seizures, other - Medication Medications: Current medications include Clopidogrel 75 mg daily Furosemide 40 mg daily as needed Gabapentin 100 mg twice daily as needed Metformin 1000 mg twice daily Metoprolol 25 mg twice daily Nitroglycerin 0.4 mg as needed Lipitor 80 mg daily Citalopram 40 mg daily Januvia 100 mg daily Patient reports allergy to meperidine, codeine, penicillin Hospitalist History - Past Medical History Other Medical History: Past medical history includes Severe peripheral vascular disease Type 2 diabetes Hypertension Hyperlipidemia Anxiety and depression Chronic arterial ulcer to left lower extremity with recurrent cellulitis Hepatitis C Coronary artery disease Myocardial infarct - Past Surgical History Other Surgical History: Past surgical history includes - Family History Other Family History: Family history of father with peripheral vascular disease who passed at age 46 - Social History Smoking Status: Never smoker Alcohol: reports: None Drugs: reports: none Living Situation: With Family Activity level: independent ambulation - Exam General Appearance: NAD, awake alert Eye: PERRL, anicteric sclera ENT: normocephalic atraumatic, no oropharyngeal lesions, moist mucosa Neck: supple, symmetric, no JVD, no thyromegaly, no lymphadenopathy, no carotid bruit Heart: RRR, no murmur, no gallops, no rubs, normal peripheral pulses Heart - other findings: Dopplerable pulses with monophasic waveforms to DP, PT Respiratory: CTAB, no wheezes, no rales, no ronchi, normal chest expansion, no tachypnea, normal percussion Gastrointestinal: soft, non-tender, non-distended, normal bowel sounds, no palpable masses, no hepatomegaly, no splenomegaly, no bruit Extremities - other findings: Extensive arterial ulcer with dry gangrene to left lower extremity. Skin: negative: no lesions (Bone and tendon exposed) Skin - other findings: Area surrounding ulcer erythematous and indurated Neurological: cranial nerve grossly intact, normal sensation to touch, no weakness, no focal deficits, no new deficit Musculoskeletal: normal tone, normal strength Psychiatric: normal affect, normal behavior, A&O x 3, lethargic Hospitalist Results - Labs Result Diagrams: 03/14/20 02:10 03/14/20 09:15 Lab results: WBC 17.4 thou/uL (4.8-10.8) H 03/14/20 02:10 Hgb 12.5 g/dL (12.0-16.0) 03/14/20 02:10 Hct 37.9 % (36.0-47.0) 03/14/20 02:10 MCV 92.8 fL (78.0-98.0) 03/14/20 02:10 Plt Count 325 thou/uL (130-400) 03/14/20 02:10 Neutrophils % 79.6 % (42.0-75.0) H 03/14/20 02:10 ESR Westergren 46 mm/hr (Less than 30) H 03/14/20 02:10 Sodium 137 mmol/L (136-145) 03/14/20 02:10 Potassium 5.8 mmol/L (3.5-5.1) H 03/14/20 02:10 Chloride 103 mmol/L (98-107) 03/14/20 02:10 Carbon Dioxide 24 mmol/L (22-29) 03/14/20 02:10 BUN 22 mg/dL (9.8-20.1) H 03/14/20 02:10 Creatinine 1.71 mg/dL (0.6-1.1) H 03/14/20 02:10 Glucose 234 mg/dL (70-105) H 03/14/20 02:10 Lactic Acid 1.1 mmol/L (0.5-2.2) 03/14/20 02:10 Calcium 8.8 mg/dL (7.8-10.44) 03/14/20 02:10 Total Bilirubin 0.2 mg/dL (0.2-1.2) 03/14/20 02:10 AST 9 U/L (5-34) 03/14/20 02:10 ALT Less than 7 U/L (8-55) L 03/14/20 02:10 Alkaline Phosphatase 107 U/L (40-110) 03/14/20 02:10 C-Reactive Protein 7.18 mg/dL (= or < 0.5) H 03/14/20 02:10 Serum Total Protein 7.5 g/dL (6.0-8.3) 03/14/20 02:10 Albumin 3.1 g/dL (3.5-5.0) L 03/14/20 02:10 Hospitalist H&P A/P - Plan Plan: Infected arterial ulcer 49-year-old female with severe peripheral vascular disease and 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 WBC 17.4, Lactic acid 2.1. Currently not meeting SIRS criteria. Concern for osteomyelitis giving extent of wound. Initial plain film showed no signs of bone abnormalities and question of air in subcutaneous tissues. The wound is very extensive and there is possibility that this area may be due to tracking, however will add clindamycin for anaerobic coverage and obtain stat MRI to further assess for osteomyelitis or gas gangrene. Wound does have dry gangrene. Bone and tendon exposed. No crepitus on exam. DP and PT pulses dopperable, but monophasic. There was reportedly plan for patient to start a wound VAC as an outpatient in the coming week however patient's pain and redness made her present to the ER. While a wound VAC may help to a small extent, likely patient needs vascular intervention to restore blood supply in order for wound to heal. Will consult cardiovascular surgery for further recommendations. Plan Stat MRI of left lower extremity wound Continue IV vancomycin, cefepime, clindamycin Trend white blood cell count, fever curve, lactic acid Cardiovascular surgery consult Stat General surgery consult for question nec fasc Peripheral vascular disease Significant peripheral vascular disease. 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 Patient does have two-vessel runoff to left lower extremity. DP and PT pulses dopplerable but monophasic. Patient with dependent rubor. Leg is warm. Patient on aspirin and Plavix at home. Plan Continue aspirin, Plavix Cardiovascular consult for question vascular interventionrecommendations appreciated Acute kidney injury On presentation BUN/CR 22/1.71. Baseline creatinine less than 1. Patient received 2 L of IV fluid in emergency room. Likely prerenal. Plan Continue to monitor kidney function Avoid nephrotoxic agents when possible Renal dosing as appropriate Hyperkalemia Patient with elevated potassium to 5.8. BUN/CR 22/1.71. No EKG changes. Calcium to stabilize myocardium. Will repeat to confirm sample has not hemolyzed and further treat if needed. Plan -Calcium gluconate -STAT repeat BMP Coronary artery disease History of coronary artery disease status post CABG. Patient on aspirin, Plavix, metoprolol, statin. We will continue home medications. Plan Continue aspirin, statin Continue Plavix, metoprolol Type 2 diabetes mellitus Type 2 diabetes on Metformin. Will hold in setting of BRETT. Will place patient on insulin sliding scale and ACHS glucose checks. Plan ISS ACHS glucose checks Hold home Metformin Hyperlipidemia Continue home statin Hepatitis C Patient with history of hepatitis C infection. LFTs within normal limits. Does not appear that patient has undergone treatment for this. Patient will need outpatient follow-up with primary care for further management. Anxiety/depression Continue home Celexa. Patient denies SI/HI. DVT prophylaxis - heparin SQ FULL CODE Case discussed with attending physician, Dr. Nash.
[2020-03-14 09:56] LABS: Anion Gap 13 mmol/L (10-20); BUN (Urea Nitrogen) 17 mg/dL (9.8-20.1); Calc. Creatinine Clearance 50 mL/min (70-130); Calcium 7.7 mg/dL (7.8-10.44); Carbon Dioxide 19 mmol/L (22-29); Chloride 110 mmol/L (98-107); Estimated GFR-MDRD 46; Glucose 206 mg/dL (70-105); Potassium 4.2 mmol/L (3.5-5.1); Sodium 138 mmol/L (136-145)
[2020-03-14] MEDS ORDERED: Metoprolol Tartrate 25 MG TAB PO SCH (10:15)
[2020-03-14] MEDS ORDERED: Amlodipine 5 MG TAB PO SCH ×2 (10:15→11:45)
[2020-03-14] MEDS ORDERED: Citalopram 20 MG TAB PO SCH (10:15)
[2020-03-14] MEDS ORDERED: Clopidogrel Bisulfate 75 MG TAB PO SCH (10:15)
[2020-03-14] MEDS ORDERED: Calcium Gluconate 4.6 MEQ in Sodium Chloride 0.9% 100 ML IVPB SCH (11:00)
[2020-03-14] MEDS ORDERED: Cefepime 2 GM in Sodium Chloride 0.9% 100 ML IVPB SCH (11:00)
--- NOTE | 2020-03-14 11:26 | MRI ---
EXAM: MRI of the left tibia/fibula without contrast HISTORY: Wound lower left leg. Evaluate for osteomyelitis COMPARISON: x-ray 03/14/2020 TECHNIQUE: Multiplanar multisequence MR images were obtained of the left lower leg without contrast. FINDINGS: No marrow signal abnormality is seen in the visualized bones to suggest osteomyelitis. Soft tissue ed yumiko is seen in the distal aspect of the leg. No focal fluid collection is seen in the soft tissues. The muscles and tendons appear intact. IMPRESSION: No significant marrow signal abnormality to suggest osteomyelitis. Please note that evalu ation is limited without IV contrast.
[2020-03-14] MEDS ORDERED: Labetalol HCl 100 MG/20 ML VIAL SLOW IVP PRN ×2 (11:34→11:39)
[2020-03-14] MEDS: Gabapentin 100 MG CAP PO SCH ×4 (11:47→20:37)
[2020-03-14] MEDS: Clindamycin/D5W 900 MG in Premix Bag 1 BAG IVPB SCH ×2 (11:51→18:15)
[2020-03-14] MEDS ORDERED: Dextrose 5% in Water 1,000 ML IV PRN (13:00)
[2020-03-14] MEDS ORDERED: Dextrose 50% Abboject 50 ML SYRINGE SLOW IVP PRN (13:00)
--- NOTE | 2020-03-14 13:49 | CON ---
DATE OF CONSULTATION: 03/14/2020 HISTORY OF PRESENT ILLNESS: Ms. Mcmahon is a 49-year-old woman who has a longstanding left leg anterior compartment open wound with dry gangrene. There are exposed tendons and her tibia is exposed. She has known peripheral vascular disease and seen by Dr. Rebolledo in the past. There have been plans made for angiograms at some point, but this has been performed by the [facility]. She does walk at home. She does not describe any claudication, although she does not walk much with this open wound currently. She smoked up until one year ago when she had coronary bypass surgery. This was performed in [place]. She had a CT angiogram performed in earlier February, which shows bilateral iliac stenoses with short-segment occlusion on the left. She has an occluded left superficial femoral artery. Popliteal artery reconstitutes via collaterals with runoff into the lower leg. On the right, she has similar appearing iliofemoral segment. Her superficial femoral artery has multifocal disease. PAST MEDICAL HISTORY: 1. Coronary artery disease. 2. Peripheral vascular disease. 3. Diabetes mellitus. 4. Hypertension. 5. Dyslipidemia. 6. Anxiety. 7. Depression. 8. Hepatitis C. PAST SURGICAL HISTORY: Coronary artery bypass grafting. SOCIAL HISTORY: She quit smoking a year ago. She does not use alcohol. CURRENT MEDICATIONS: 1. Plavix 75 mg daily. 2. Lasix 40 mg daily p.r.n. 3. Gabapentin 100 mg b.i.d. 4. Metformin 1000 mg b.i.d. 5. Metoprolol 25 mg daily. 6. Lipitor 80 mg daily. 7. Citalopram 40 mg daily. 8. Januvia 100 mg daily. ALLERGIES: MEPERIDINE, CODEINE, PENICILLIN, AND ORANGE. REVIEW OF SYSTEMS: A 10-point review of systems is performed and is negative except as above. PHYSICAL EXAMINATION: GENERAL: This is a well-developed, well-nourished diminutive woman. VITAL SIGNS: Height 5 feet 2 inches, weight is 129 pounds, temperature is 98.4, pulse is 68 and regular, and blood pressure is 128/74. HEENT: Sclerae nonicteric. NECK: Supple with no adenopathy. She does not have carotid bruits. CHEST: Clear bilaterally. HEART: Rhythm is regular without murmur. ABDOMEN: Soft and nontender with no mass. EXTREMITIES: Over her left elkins, she has a large approximately 15 to 20 cm long open area with exposed tendon and tibia. She has another abrasion on her knee. On the right leg, there are scratches all over her leg, which she says came from a cat. She has small ulcerations on the tips of her toes 1 through 3. VASCULAR: I cannot palpate femoral pulses. She has monophasic Doppler signals in both femorals and popliteal arteries. On the right, she has a monophasic dorsalis pedis. ASSESSMENT AND PLAN: Unsalvageable left lower leg. She is going to need an amputation. I think to try to give a below-knee amputation as much possibility that heals we can. It would be good if we can re-establish straight line flow down into her femoral system by intervening on her iliac artery on the left. I have discussed angiograms and intervention with her and we will make plans for tomorrow. Job ID: [id number]
[2020-03-14] MEDS: Sodium Chloride 0.9% 1,000 ML IV SCH ×2 (15:16→22:40)
--- NOTE | 2020-03-14 15:59 | CON ---
DATE OF CONSULTATION: 03/14/2020 REASON FOR CONSULTATION: Left leg wound. HISTORY OF PRESENT ILLNESS: Ms. Mcmahon is a 49-year-old woman with known peripheral vascular disease, who has had a wound on her left elkins for 6 months. She states that she had been seeing Wound Care and they were trying to order a VAC for her, but due to various problems, they were unable to get this done and the ulcer has gotten bigger. She was apparently admitted in November for the same problem and treated with antibiotics and wound care. She has had increasing pain and redness to her left leg for the past few days to a week before she came to the hospital, so she decided to come in and she was admitted through the emergency room. PAST MEDICAL HISTORY: 1. Coronary artery disease status post bypass artery grafting using right saphenous vein. 2. Peripheral vascular disease with rest pain and ulceration. 3. Type 2 diabetes. 4. Hypertension. 5. Hyperlipidemia. 6. Anxiety. 7. Depression. 8. Hepatitis C. MEDICATIONS: Outpatient medications: 1. Plavix. 2. Lasix. 3. Gabapentin. 4. Metformin. 5. Metoprolol. 6. Nitroglycerin. 7. Lipitor. 8. Citalopram. 9. Januvia. Inpatient medications: 1. Amlodipine. 2. Lipitor. 3. Cefepime. 4. Celexa. 5. Clindamycin. 6. Plavix. 7. Gabapentin. 8. Sliding scale insulin. 9. Metoprolol. 10. Remeron. 11. Vancomycin. 12. Multiple p.r.n. ALLERGIES: CODEINE, MEPERIDINE, AND PENICILLIN, CAUSE A RASH. PAST SURGICAL HISTORY: Coronary artery bypass grafting. FAMILY HISTORY: Vascular disease. SOCIAL HISTORY: The patient does not smoke, use illicit drugs, or alcohol. She is ambulatory, although this week she has not really been able to walk due to pain in her foot. REVIEW OF SYSTEMS: Ten system review of systems is negative except for the following: The patient does report rest pain, having to dangle her legs over the edge of the bed in order to sleep at night. She has constant pain in her left leg due to the ulcer. She has a small scab on the right foot, which has been present for many months, but no ulcerations. She has occasional chest pain, but is unable to identify the triggers. Her feels that it is brought on by stress and pain. She denies shortness of breath or orthopnea. She has some mild lower abdominal discomfort, which is intermittent. PHYSICAL EXAMINATION: VITAL SIGNS: The patient is afebrile, heart rate 68, respirations 17, 98% saturated on room air, and blood pressure 128/74. GENERAL: An anxious-appearing woman, in moderate distress. She is not flushed or toxic in appearance. She is not jaundiced or icteric. HEENT: Unremarkable. Pupils and facial movements symmetric. NECK: Supple without lymphadenopathy or thyroid nodules. HEART: Regular in its rate and rhythm without murmurs, rubs, or gallops. LUNGS: Clear to auscultation bilaterally. ABDOMEN: Soft and nondistended. She has some minimal lower abdominal tenderness, but no rigidity, rebound, or guarding and no palpable masses or hernias. EXTREMITIES: Cool and poorly perfused. She has shiny skin to both lower legs as well as some muscle wasting. She has no palpable pulses in the groin, popliteal, dorsalis pedis, or posterior tibial areas. She has a large full-thickness eschar with exposed tendon overlying the left anterolateral elkins with necrotic tissue and eschar visible. She has erythema of the leg below at this level. She has a small eschar of the left knee without surrounding erythema and with no fluctuance. The eschar is slightly mobile and starting to come up along the edges. She has a small scab like lesion on her right foot, which she states has been present for several months. No ulcerations or cellulitis, however, on the right foot. NEUROLOGIC: The patient has very limited dorsiflexion of the ankle and fairly normal dorsiflexion of the toes. Grossly intact sensation to light touch. RADIOLOGIC DATA: MRI did not show any obvious osteomyelitis, although this was limited by noncontrast study. Plain films of the tibia and fibula were questionable for possible gas in the soft tissues. LABORATORY DATA: White count is elevated at 17,000 with a left shift, hematocrit 37, and platelets 325. Electrolytes unremarkable. Creatinine mildly elevated at 1.23, bicarb slightly low at 19, lactate normal at 1.1, C-reactive protein is elevated at 7.18. LFTs are unremarkable. ASSESSMENT: Severe peripheral vascular disease with gangrene and rest pain and imminent risk for loss of limb. Dr. Wilson of CT Surgery has been consulted and plans to do an angio tomorrow to see if he can improve the blood flow to her legs. At this point, the patient is unlikely to heal debridement or a below-knee amputation of the left leg and she already has exposed nonviable tendons. Attempted limb salvage with wound care runs the risk of poor function of the foot with footdrop and fall risk. I have recommended a below-knee amputation, but the patient is not ready to consider that at this time. I will debride the wound at the bedside to try to define the depths of the wound and also determine whether there is any significant tunneling, which might make below-knee amputation non-feasible. Currently, it does appear that she has enough non-involved skin and soft-tissue to perform a closed below-knee amputation, but if there is significant tunneling, then this may not be the case. The patient is agreeable with this plan. We will get the wound care team involved tomorrow, but plan to just do wet-to-dry dressings after debridement today. I suspect that eventually the patient will decide to proceed with below-knee amputation. Job ID: [id number] [id number]
[2020-03-14 16:06] LABS: SARS-CoV-2 MS2 Positive; SARS-CoV-2 N Gene Negative; SARS-CoV-2 S Gene Negative; SARS-CoV-2 by NAA Not Detected (NotDetected); SARS-CoV-2 orf1ab Negative
[2020-03-14] MEDS: Atorvastatin Calcium 40 MG TAB PO SCH (20:43)
[2020-03-14] MEDS: Mirtazapine 15 MG TAB PO SCH (20:43)
[2020-03-14] MEDS: Ondansetron ODT 4 MG TAB PO PRN (20:44)
[2020-03-14] MEDS: Morphine 2 MG/ML VIAL SLOW IVP PRN (20:44)
[2020-03-14] MEDS: HumaLOG 300 UNITS/3 ML VIAL SC PRN (22:44)
[2020-03-15] MEDS: Clindamycin/D5W 900 MG in Premix Bag 1 BAG IVPB SCH (01:15)
[2020-03-15] MEDS: Vancomycin HCl 750 MG in Sodium Chloride 0.9% 250 ML 250 ML IVPB SCH (02:40)
[2020-03-15] MEDS ORDERED: Amlodipine 5 MG TAB PO SCH (09:00)
[2020-03-15 09:11] LABS: Anion Gap 14 mmol/L (10-20); BUN (Urea Nitrogen) 13 mg/dL (9.8-20.1); Calc. Creatinine Clearance 56 mL/min (70-130); Calcium 7.8 mg/dL (7.8-10.44); Carbon Dioxide 17 mmol/L (22-29); Chloride 109 mmol/L (98-107); Estimated GFR-MDRD 49; Glucose 144 mg/dL (70-105); Potassium 4.3 mmol/L (3.5-5.1); Sodium 136 mmol/L (136-145)
[2020-03-15] MEDS: Clopidogrel Bisulfate 75 MG TAB PO SCH (09:28)
[2020-03-15] MEDS: Gabapentin 100 MG CAP PO SCH ×3 (09:29→20:12)
[2020-03-15] MEDS: Ondansetron ODT 4 MG TAB PO PRN (09:30)
[2020-03-15] MEDS: Saccharomyces boulardii 250 MG CAP PO SCH (09:30)
[2020-03-15] MEDS: Citalopram 20 MG TAB PO SCH (09:30)
[2020-03-15] MEDS: Metoprolol Tartrate 25 MG TAB PO SCH (09:30)
--- NOTE | 2020-03-15 09:31 | PDOC.HOSPP ---
- Subjective Encounter Date: 03/15/20 Encounter Time: 08:00 Subjective: No overnight events. Patient continues to endorse pain to her left lower extremity. Denies chest pain, shortness of breath, abdominal pain. Denies fever/night sweats/chills. Chart medications reviewed. - Objective Vital Signs & Weight: Vital Signs (12 hours) Temp Pulse Resp BP Pulse Ox 03/15/20 04:00 97.8 F 81 16 137/63 95 03/15/20 00:00 113/58 L 90 L Weight Weight 135 lb 8 oz I&O: 03/14/20 03/15/20 03/16/20 06:59 06:59 06:59 Intake Total 2275 Output Total 225 Balance 2049 Result Diagrams: 03/15/20 09:29 03/15/20 08:31 Additional Labs: Accuchecks 03/15/20 03/14/20 03/14/20 05:55 20:45 17:02 POC Glucose 144 H 228 H 183 H Hospitalist ROS - Review of Systems Constitutional: denies: fever, chills, sweats, weakness, malaise, other Eyes: denies: pain, vision change ENT: denies: nose congestion, throat pain Respiratory: denies: cough, shortness of breath Cardiovascular: denies: chest pain, palpitations Gastrointestinal: denies: nausea, vomiting, abdominal pain, diarrhea, melena, hematochezia Genitourinary: denies: dysuria, hematuria Musculoskeletal: reports: leg pain Skin: reports: lesions Neurological: denies: weakness, numbness - Medication Medications: Active Medications Generic Name Dose Route Start Last Admin Trade Name Gaganq PRN Reason Stop Dose Admin Atorvastatin Calcium 80 mg 03/14/20 21:00 03/14/20 20:43 Atorvastatin Calcium 40 Mg Tab PO 80 mg HS BRITTANY Administration Gabapentin 200 mg 03/14/20 15:00 03/14/20 20:37 Gabapentin 100 Mg Cap PO 200 mg TID BRITTANY Administration Vancomycin HCl 750 mg/ Sodium 250 mls @ 250 mls/hr 03/15/20 03:00 03/15/20 02:40 Chloride IVPB 250 mls 0300 BRITTANY Administration Sodium Chloride 1,000 mls @ 75 mls/hr 03/14/20 13:15 03/14/20 22:40 Normal Saline 0.9% IV 1,000 mls .[id number] BRITTANY Administration Insulin Human Lispro 0 units 03/14/20 13:00 03/14/20 22:44 Humalog 300 Units/3 Ml Vial SC 2 unit .BEDTIME SLIDING SC PRN Administration Bedtime Correctional Scale Mirtazapine 15 mg 03/14/20 21:00 03/14/20 20:43 Mirtazapine 15 Mg Tab PO 15 mg HS BRITTANY Administration Morphine Sulfate 2 mg 03/14/20 17:38 03/14/20 20:44 Morphine 2 Mg/Ml Vial SLOW IVP 2 mg Q4H PRN Administration Moderate Pain (4-6) Ondansetron HCl 4 mg 03/14/20 17:39 03/14/20 20:44 Ondansetron Odt 4 Mg Tab PO 4 mg Q6H PRN Administration Nausea/Vomiting - Exam General Appearance: NAD, awake alert Eye: PERRL, anicteric sclera ENT: normocephalic atraumatic, no oropharyngeal lesions, moist mucosa Neck: supple, symmetric, no JVD, no thyromegaly, no lymphadenopathy, no carotid bruit Heart: RRR, no murmur, no gallops, no rubs, normal peripheral pulses Respiratory: rales Gastrointestinal: soft, non-tender, non-distended, normal bowel sounds, no palpable masses, no hepatomegaly, no splenomegaly, no bruit Extremities - other findings: Left lower extremity with stable cellulitis. Peripheral pulses intact. 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 DP and PT pulses dopperable, but monophasic. WBC 17.4, Lactic acid 2.1. Currently not meeting SIRS criteria. Conc sy for osteomyelitis giving extent of wound. Initial plain film showed no signs of bone abnormalities and question of air in subcutaneous tissues. Wound does have dry gangrene. Bone and tendon exposed. MRI showed no evidence of osteo, however limited by non-con study given pt's BRETT. General surgery consulted for ? nec fasc. Agree that air on XR was likely dt tracking from open wound not nec fasc. General surgery debrided the area and drained abscess. There was reportedly plan for patient to start a wound VAC as an outpatient in the coming week. While a wound VAC may help to a small extent, likely patient needs vascular intervention to restore blood supply in order for wound to heal. CV lesley devan consulted with plans for angiogram today, 03/15. Plan Continue IV vancomycin, cefepime Trend white blood cell count, fever curve, lactic acid General surgery following -CV surgery- angio today -Wound care -ID consult for abx guidance Peripheral vascular disease Significant peripheral vascular disease. 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 Patient does have two-vessel runoff to left lower extremity. DP and PT pulses dopplerable but monophasic. Patient with dependent rubor. Leg is warm. Patient on aspirin and Plavix at home. Given extent of PVD and severity of arterial wound, patient likely needs a BKA to salvage her leg and life. Discussed this with patient who is very resistant to amputation. CV surgery will attempt to restore blood flow, however prognosis is poor. Plan Continue aspirin, Plavix CV surgery with plans for angiogram 03/15 Acute kidney injury On presentation BUN/CR 22/1.71. Baseline creatinine less than 1. Patient received 2 L of IV fluid in emergency room. Likely prerenal. Cr now improved to 13/1.16. Plan Continue to monitor kidney function Avoid nephrotoxic agents when possible Renal dosing as appropriate Hyperkalemia Patient with elevated potassium to 5.8. BUN/CR 22/1.71. No EKG changes. Calcium to stabilize myocardium. Will repeat to confirm sample has not hemolyzed and further treat if needed. Repeat potassium 4.2. Suspect initial sample was hemolyzed. Will continue to monitor. Plan -Laboratory artifact -Continue to monitor Coronary artery disease History of coronary artery disease status post CABG. Patient on aspirin, Plavix, metoprolol, statin. We will continue home medications. Plan Continue aspirin, statin Continue Plavix, metoprolol Type 2 diabetes mellitus Type 2 diabetes on Metformin. Will hold in setting of BRETT. Will place patient on insulin sliding scale and ACHS glucose checks. Plan ISS ACHS glucose checks Hold home Metformin Hyperlipidemia Continue home statin. Hepatitis C Patient with history of hepatitis C infection. LFTs within normal limits. Does not appear that patient has undergone treatment for this. Patient will need outpatient follow-up with primary care for further management. Anxiety/depression Continue home Celexa. Patient denies SI/HI. DVT prophylaxis - heparin SQ FULL CODE Case discussed with attending physician, Dr. Harkins.
[2020-03-15 09:39] LABS: #Eosinphils 0.1 thou/uL (0.0-0.7); #Lymphocytes 1.7 thou/uL (1.20-3.40); #Monocytes 0.9 thou/uL (0.11-0.59); #Neutrophils 12.6 thou/uL (1.40-6.50); %Basophils 0.3 % (0.0-1.0); %Eosinophils 0.5 % (0.0-10.0); %Lymphocytes 10.8 % (21.0-51.0); %Neutrophils 82.3 % (42.0-75.0); Hemoglobin 11.7 g/dL (12.0-16.0); Mean Corpuscular HGB CONC 31.9 g/dL (32.0-36.0); Mean Platelet Volume 7.1 fL (7.4-10.4); Platelet Count 342 thou/uL (130-400); RBC Distribution Width 14.3 % (11.5-14.5); Red Blood Cell (RBC) Count 4.02 mill/uL (4.20-5.40); White Blood Cell (WBC) Count 15.3 thou/uL (4.8-10.8)
[2020-03-15] MEDS ORDERED: Heparin 10,000 UNITS/ 10 ML VIAL ONE (10:26)
[2020-03-15] MEDS ORDERED: Protamine Sulfate 50 MG/5 ML VIAL ONE (10:45)
--- NOTE | 2020-03-15 11:52 | OP ---
DATE OF PROCEDURE: 03/15/2020 PREOPERATIVE DIAGNOSIS: Peripheral vascular disease with gangrene on left lower extremity. POSTOPERATIVE DIAGNOSIS: Peripheral vascular disease with gangrene on left lower extremity. PROCEDURES PERFORMED: 1. Ultrasound-guided left common femoral artery access. 2. Left external iliac artery angiogram. 3. Abdominal aorta angiogram. 4. Percutaneous transluminal angioplasty of the left common and external iliac arteries with a 5 x 60 [place] balloon, taken to 8 mmHg for 2 minutes. 5. Stenting of the left common and external iliac with a 6 x 60 Innova self-expanding stent. TOTAL CONTRAST: 25 mL. TOTAL FLUORO TIME: 2.5 minutes. HEPARIN: 3000 units. PROTAMINE: 20 mg at completion. DESCRIPTION OF PROCEDURE: After consent was obtained, the patient was brought to the cathodic protection technician and placed in supine position on the cathodic protection technician table. Appropriate central line and monitors were placed. Groins were prepped and draped in the usual sterile fashion. Using ultrasound guidance, the left groin was anesthetized with 1% lidocaine. Using ultrasound guidance, micropuncture sheath was placed in the left common femoral artery. This was exchanged for a 5-Malay sheath over a [employer] wire. Hand-injected arteriogram was performed with the tip of the sheath in the external iliac artery. The external iliac artery was occluded, but the wire had easily passed upstream. A Contra catheter was passed over the wire in the abdominal aorta. Aortogram was performed, showing critical stenosis of the common iliac artery with an occlusion of the external iliac artery just distal to the bifurcation. The patient was given 3000 units of heparin. A 5 x 60 [place] balloon was selected and passed to the aortic bifurcation. This was inflated and held for 2 minutes. Followup angiogram showed an excellent result. There was some residual stenosis, but excellent flow. We elected to stent with a 6 x 60 Innova stent, which was deployed. The followup angiogram showed well-deployed stent with good apposition throughout its length. There was good flow through the stent. 20 mg of protamine had been given. Sheath was removed and manual pressure held for hemostasis. The patient tolerated the procedure well and was transferred back to the floor in good condition. Job ID: [id number]
--- NOTE | 2020-03-15 13:02 | PDOC.GSPN ---
Surgery Progress Note: Subj - Subjective Narrative: Patient seen on morning rounds. The wound care team had just change the wet-to-dry dressing on her leg. She states that the dressing change was painful but overall she feels like the pain in her leg is slightly better. Since that time she has proceeded to angiography with Dr. Wilson. He was able to open her iliacs but was unable to intervene on her SFA as it was quite small. Her profunda is open. Assessment/plan: Ischemic ulceration to the left leg with subsequent cellulitis. Vascular surgery has improved the blood flow to this area but was unable to open the superficial femoral artery so blood flow to the lower leg is still somewhat limited. She may have the capacity to heal a below-knee amputation based on peripheral from her profunda, but currently she is still declining amputation. We will continue with wound care and debridement at the bedside. Surgery Progress Note: Obj - Vital signs Vital signs: Vital Signs - Most Recent Temp Pulse Resp BP Pulse Ox 98.5 F 71 18 153/66 H 96 03/15/20 08:15 03/15/20 08:15 03/15/20 08:15 03/15/20 08:15 03/15/20 08:15 Surgery Progress Note: Results - Labs Result Diagrams: 03/15/20 09:29 03/15/20 08:31 Lab results: Laboratory Results - last 12 hr 03/15/20 03/15/20 03/15/20 05:55 08:31 09:29 WBC 15.3 H RBC 4.02 L Hgb 11.7 L Hct 36.6 MCV 91.0 MCH 29.0 MCHC 31.9 L RDW 14.3 Plt Count 342 MPV 7.1 L Neutrophils % 82.3 H Lymphocytes % 10.8 L Monocytes % 6.0 Eosinophils % 0.5 Basophils % 0.3 Neutrophils # 12.6 H Lymphocytes # 1.7 Monocytes # 0.9 H Eosinophils # 0.1 Basophils # 0.0 Activated Clotting Time Sodium 136 Potassium 4.3 Chloride 109 H Carbon Dioxide 17 L Anion Gap 14 BUN 13 Creatinine 1.16 H Estimated GFR (MDRD) 49 Glucose 144 H POC Glucose 144 H Calcium 7.8 03/15/20 10:38 WBC RBC Hgb Hct MCV MCH MCHC RDW Plt Count MPV Neutrophils % Lymphocytes % Monocytes % Eosinophils % Basophils % Neutrophils # Lymphocytes # Monocytes # Eosinophils # Basophils # Activated Clotting Time 235 Sodium Potassium Chloride Carbon Dioxide Anion Gap BUN Creatinine Estimated GFR (MDRD) Glucose POC Glucose Calcium
--- NOTE | 2020-03-15 14:35 | RAD ---
EXAM: Single view of the chest HISTORY: Shortness of breath COMPARISON: 02/02/2019 FINDINGS: Single view of the chest shows a normal sized cardiomediastinal silhouette. The patient is status post sternotomy. There appear to be fluffy bilateral perihilar opacities. No pleural effusion is seen. There is a healed right clavicle fracture. Degenerative changes are seen in the spi ne. IMPRESSION: Bilateral perihilar opacities
[2020-03-15 15:32] VITALS: BMI 24.7
[2020-03-15] MEDS: Sodium Chloride 0.9% 1,000 ML IV SCH (15:39)
[2020-03-15] MEDS: HumaLOG 300 UNITS/3 ML VIAL SC PRN (16:41)
[2020-03-15] MEDS: Morphine 2 MG/ML VIAL SLOW IVP PRN (18:37)
[2020-03-15] MEDS: Atorvastatin Calcium 40 MG TAB PO SCH (20:11)
[2020-03-15] MEDS: Mirtazapine 15 MG TAB PO SCH (20:11)
[2020-03-16 02:46] LABS: Vancomycin, Trough 10.5 ug/mL
[2020-03-16] MEDS: Vancomycin 1 GM in Premix Bag 1 BAG IVPB SCH (03:36)
[2020-03-16] MEDS: Vancomycin HCl 750 MG in Sodium Chloride 0.9% 250 ML 250 ML IVPB SCH (03:43)
[2020-03-16] MEDS: Morphine 2 MG/ML VIAL SLOW IVP PRN ×5 (04:37→23:03)
[2020-03-16 04:50] LABS: #Eosinphils 0.1 thou/uL (0.0-0.7); #Lymphocytes 1.7 thou/uL (1.20-3.40); #Monocytes 0.9 thou/uL (0.11-0.59); #Neutrophils 10.9 thou/uL (1.40-6.50); %Basophils 0.2 % (0.0-1.0); %Eosinophils 0.4 % (0.0-10.0); %Lymphocytes 12.5 % (21.0-51.0); %Monocytes 6.9 % (0.0-10.0); Mean Corpuscular HGB CONC 32.2 g/dL (32.0-36.0); Mean Corpuscular Hemoglobin 29.2 pg (27.0-31.0); Mean Corpuscular Volume 90.8 fL (78.0-98.0); Mean Platelet Volume 7.2 fL (7.4-10.4); Platelet Count 300 thou/uL (130-400); RBC Distribution Width 14.5 % (11.5-14.5); Red Blood Cell (RBC) Count 3.74 mill/uL (4.20-5.40); White Blood Cell (WBC) Count 13.7 thou/uL (4.8-10.8)
[2020-03-16 05:07] LABS: Anion Gap 14 mmol/L (10-20); BUN (Urea Nitrogen) 12 mg/dL (9.8-20.1); Calc. Creatinine Clearance 57 mL/min (70-130); Calcium 7.8 mg/dL (7.8-10.44); Carbon Dioxide 19 mmol/L (22-29); Chloride 108 mmol/L (98-107); Estimated GFR-MDRD 52; Glucose 191 mg/dL (70-105); Potassium 3.9 mmol/L (3.5-5.1); Sodium 137 mmol/L (136-145)
[2020-03-16] MEDS: HumaLOG 300 UNITS/3 ML VIAL SC PRN ×2 (06:09→17:26)
[2020-03-16] MEDS: Sodium Chloride 0.9% 1,000 ML IV SCH ×2 (07:09→09:52)
[2020-03-16] MEDS ORDERED: Albuterol Sulfate 2.5 mg/3 ml Neb NEB PRN (07:25)
[2020-03-16] MEDS: Metoprolol Tartrate 25 MG TAB PO SCH (09:49)
[2020-03-16] MEDS: Gabapentin 100 MG CAP PO SCH ×3 (09:49→20:21)
[2020-03-16] MEDS: Clopidogrel Bisulfate 75 MG TAB PO SCH (09:49)
[2020-03-16] MEDS: Saccharomyces boulardii 250 MG CAP PO SCH (09:50)
[2020-03-16] MEDS: Citalopram 20 MG TAB PO SCH (09:50)
[2020-03-16] MEDS: Cefepime 2 GM in Sodium Chloride 0.9% 100 ML IVPB SCH ×2 (09:50→20:21)
--- NOTE | 2020-03-16 10:07 | PDOC.HOSPP ---
- Subjective Encounter Date: 03/16/20 Encounter Time: 10:05 Subjective: No overnight events. Patient with new oxygen requirement of 2L NC. Denies shortness of breath. Patient is not on any inhalers at home and has no history of COPD/asthma. Today patient reports the pain in her L leg is well managed. Deneis fever/chills/nightsweats. Patient fearful of needing amputation. Chart and medications reviewed. - Objective Vital Signs & Weight: Vital Signs (12 hours) Temp Pulse Resp BP Pulse Ox 03/16/20 07:35 97.7 F 77 16 150/68 H 96 03/16/20 06:00 163/67 H 03/16/20 04:00 97.9 F 85 16 175/80 H 96 03/16/20 00:30 98.5 F 73 14 151/68 H 94 L 03/15/20 22:21 2 L Weight Admit Weight 129 lb Weight 132 lb 6.4 oz I&O: 03/15/20 03/16/20 03/17/20 06:59 06:59 06:59 Intake Total 2275 Output Total 225 Balance 2049 Result Diagrams: 03/16/20 04:09 03/16/20 04:09 Additional Labs: Accuchecks 03/16/20 03/15/20 03/15/20 05:44 20:30 16:17 POC Glucose 200 H 143 H 214 H Hospitalist ROS - Review of Systems Constitutional: denies: fever, chills, sweats, weakness, malaise, other Eyes: denies: pain, vision change, conjunctivae inflammation, eyelid inflammation, redness, other ENT: denies: ear pain, ear discharge, nose pain, nose discharge, nose congestion, mouth pain, mouth swelling, throat pain, throat swelling, other Respiratory: denies: cough, dry, shortness of breath, hemoptysis, SOB with excertion, pleuritic pain, sputum, wheezing, other Cardiovascular: denies: chest pain, palpitations, orthopnea, paroxysmal noc. dyspnea, edema, light headedness, other Gastrointestinal: denies: nausea, vomiting, abdominal pain, diarrhea, constipation, melena, hematochezia, other Genitourinary: denies: dysuria, frequency, incontinence, hematuria, retention, other Musculoskeletal: reports: leg pain. denies: neck pain, shoulder pain, arm pain, back pain, hand pain, foot pain, other Skin: reports: rash, lesions Neurological: denies: weakness, numbness, incoordination, change in speech, confusion, seizures, other - Medication Medications: Active Medications Generic Name Dose Route Start Last Admin Trade Name Freq PRN Reason Stop Dose Admin Atorvastatin Calcium 80 mg 03/14/20 21:00 03/15/20 20:11 Atorvastatin Calcium 40 Mg Tab PO 80 mg HS BRITTANY Administration Citalopram Hydrobromide 40 mg 03/15/20 09:00 03/16/20 09:50 Citalopram 20 Mg Tab PO 40 mg DAILY BRITTANY Administration Clopidogrel Bisulfate 75 mg 03/15/20 09:00 03/16/20 09:49 Clopidogrel Bisulfate 75 Mg Tab PO 75 mg QAM BRITTANY Administration Gabapentin 200 mg 03/14/20 15:00 03/16/20 09:49 Gabapentin 100 Mg Cap PO 200 mg TID BRITTANY Administration Sodium Chloride 1,000 mls @ 75 mls/hr 03/14/20 13:15 03/16/20 09:52 Normal Saline 0.9% IV 1,000 mls .[id number] BRITTANY Administration Vancomycin HCl 1 gm/ Device 200 mls @ 200 mls/hr 03/16/20 04:00 03/16/20 03:36 IVPB 200 mls 0400 BRITTANY Administration Cefepime HCl 2 gm/ Sodium 100 mls @ 200 mls/hr 03/16/20 09:00 03/16/20 09:50 Chloride IVPB 100 mls Q12HR BRITTANY Administration Insulin Human Lispro 0 units 03/14/20 13:00 03/16/20 06:09 Humalog 300 Units/3 Ml Vial SC 2 unit .MILD SLIDING SCALE PRN Administration Mild Correctional Scale Insulin Human Lispro 0 units 03/14/20 13:00 03/14/20 22:44 Humalog 300 Units/3 Ml Vial SC 2 unit .BEDTIME SLIDING SC PRN Administration Bedtime Correctional Scale Metoprolol Tartrate 25 mg 03/15/20 09:00 03/16/20 09:49 Metoprolol Tartrate 25 Mg Tab PO 25 mg DAILY BRITTANY Administration Mirtazapine 15 mg 03/14/20 21:00 03/15/20 20:11 Mirtazapine 15 Mg Tab PO 15 mg HS BRITTANY Administration Morphine Sulfate 2 mg 03/14/20 17:38 03/16/20 09:50 Morphine 2 Mg/Ml Vial SLOW IVP 2 mg Q4H PRN Administration Moderate Pain (4-6) Ondansetron HCl 4 mg 03/14/20 17:39 03/15/20 09:30 Ondansetron Odt 4 Mg Tab PO 4 mg Q6H PRN Administration Nausea/Vomiting Saccharomyces Boulardii 250 mg 03/15/20 09:00 03/16/20 09:50 Saccharomyces Boulardii 250 Mg Cap PO 250 mg DAILY BRITTANY Administration Sodium Chloride 10 ml 03/16/20 09:00 03/16/20 09:51 Flush - Normal Saline 10 Ml Syringe IVF 10 ml Q12HR BRITTANY Administration - Exam General Appearance: NAD, awake alert Eye: PERRL, anicteric sclera ENT: normocephalic atraumatic, no oropharyngeal lesions, moist mucosa Neck: supple, symmetric, no JVD, no thyromegaly, no lymphadenopathy, no carotid bruit Heart: RRR, no murmur, no gallops, no rubs, normal peripheral pulses Respiratory - other findings: Crackles at bases Gastrointestinal: soft, non-tender, non-distended, normal bowel sounds, no palpable masses, no hepatomegaly, no splenomegaly, no bruit Extremities - other findings: Dressing C/D/I Skin - other findings: sensation intact Neurological: normal sensation to touch, no weakness, no focal deficits Musculoskeletal: normal tone, diffuse muscle atrophy Psychiatric: normal affect, normal behavior, A&O x 3 Hosp A/P - Plan Infected arterial ulcer 49-year-old female with severe peripheral vascular disease and 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 DP and PT pulses dopperable, but monophasic. WBC 17.4, Lactic acid 2.1. Currently not meeting SIRS criteria. Concern for osteomyelitis giving extent of wound. Initial plain film showed no signs of bone abnormalities and question of air in subcutaneous tissues. Wound does have dry gangrene. Bone and tendon exposed. MRI showed no evidence of osteo, however limited by non-con study given pt's BRETT. General surgery consulted for ? nec fasc. Agree that air on XR was likely dt tracking from open wound not nec fasc. General surgery debrided the area and drained abscess. CV surgery performed angiogram on 03/15 and was able to open the L iliac, but unable to restore blood flow to calf. Wound cultures growing serratia and enterococus. Blood cx NGTd. ID consulted for further abx recommendations. Continues on vanc and cefepime currently. Plan Continue IV vancomycin, cefepime Trend white blood cell count, fever curve, lactic acid General surgery following -s/p angio with stent to L iliac -Wound care -ID consult for abx guidance Peripheral vascular disease Significant peripheral vascular disease. 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 Patient does have two-vessel runoff to left lower extremity. DP and PT pulses dopplerable but monophasic. Patient with dependent rubor. Leg is warm. Patient on aspirin and Plavix at home. Given extent of PVD and severity of arterial wound, patient likely needs a BKA to salvage her leg and life. Discussed this with patient who is very resistant to amputation. CV surgery placed a stent to L iliac, however unable to restore blood flow to calf. Prognosis is poor. General surgery feels that patient would likely be able to heal a BKA since iliac opened, but patient continues to refuse. Discussed at length with patient the general post-operative course after a BKA. She would like to continue with conservative management for now. I encouraged her to discuss with her family. Plan Continue aspirin, Plavix s/p angio with iliac stent -Needs BKA, but patient refusing -Continue conservative management for now -General surgery following New oxygen requirement Patient with new O2 requirement on 2L NC. Crackles heard at bases. CXR showed fluffy hilar opacities. Likely component of CHF given patient's CABG history. Last echo was more than 1 year ago and pt had normal EF at that time. Will repeat echo, obtain BNP. Plan -Repeat echocardiogram -Closely monitor respiratory status -Dipti prn -BNP Acute kidney injury On presentation BUN/CR /1.71. Baseline creatinine less than 1. Patient received 2 L of IV fluid in emergency room. Likely prerenal. Cr now improved to 13/1.16. Plan Continue to monitor kidney function Avoid nephrotoxic agents when possible Renal dosing as appropriate Hyperkalemia Patient with elevated potassium to 5.8. BUN/CR /.71. No EKG changes. Calcium to stabilize myocardium. Will repeat to confirm sample has not hemolyzed and further treat if needed. Repeat potassium 4.2. Suspect initial sample was hemolyzed. Will continue to monitor. Plan -Laboratory artifact -Continue to monitor Coronary artery disease History of coronary artery disease status post CABG. Patient on aspirin, Plavix, metoprolol, statin. We will continue home medications. Plan Continue aspirin, statin Continue Plavix, metoprolol Type 2 diabetes mellitus Type 2 diabetes on Metformin. Will hold in setting of BRETT. Will place patient on insulin sliding scale and ACHS glucose checks. Plan ISS ACHS glucose checks Hold home Metformin Hyperlipidemia Continue home statin. Hepatitis C Patient with history of hepatitis C infection. LFTs within normal limits. Does not appear that patient has undergone treatment for this. Patient will need outpatient follow-up with primary care for further management. Anxiety/depression Continue home Celexa. Patient denies SI/HI. DVT prophylaxis - heparin SQ FULL CODE Case discussed with attending physician, Dr. Harkins.
[2020-03-16] MEDS ORDERED: Furosemide 20 MG/2 ML VIAL SLOW IVP SCH (11:30)
--- NOTE | 2020-03-16 12:39 | PDOC.GSPN ---
Surgery Progress Note: Subj - Subjective Narrative: Patient seen with wound care team this morning. The wound is debriding well with wet-to-dry dressings and the underlying tissues appear viable. The necrotic desiccated tendon has been excised and there are some other exposed tendons which appear viable at this point. The patient continues to decline below-knee amputation. We will continue with wet-to-dry dressing changes until the wound is adequately debrided following which we will transition to a VAC dressing. Surgery Progress Note: Obj - Vital signs Vital signs: Vital Signs - Most Recent Temp Pulse Resp BP Pulse Ox 98.0 F 75 16 142/70 H 98 03/16/20 11:45 03/16/20 11:45 03/16/20 11:45 03/16/20 11:45 03/16/20 11:45 Surgery Progress Note: Results - Labs Result Diagrams: 03/16/20 04:09 03/16/20 04:09 Lab results: Laboratory Results - last 12 hr 03/16/20 03/16/20 03/16/20 02:21 04:09 04:09 WBC 13.7 H RBC 3.74 L Hgb 11.0 L Hct 34.0 L MCV 90.8 MCH 29.2 MCHC 32.2 RDW 14.5 Plt Count 300 MPV 7.2 L Neutrophils % 80.0 H Lymphocytes % 12.5 L Monocytes % 6.9 Eosinophils % 0.4 Basophils % 0.2 Neutrophils # 10.9 H Lymphocytes # 1.7 Monocytes # 0.9 H Eosinophils # 0.1 Basophils # 0.0 Sodium 137 Potassium 3.9 Chloride 108 H Carbon Dioxide 19 L Anion Gap 14 BUN 12 Creatinine 1.11 H Estimated GFR (MDRD) 52 Glucose 191 H POC Glucose Calcium 7.8 B-Natriuretic Peptide Vancomycin Trough 10.5 03/16/20 03/16/20 03/16/20 05:44 10:16 11:03 WBC RBC Hgb Hct MCV MCH MCHC RDW Plt Count MPV Neutrophils % Lymphocytes % Monocytes % Eosinophils % Basophils % Neutrophils # Lymphocytes # Monocytes # Eosinophils # Basophils # Sodium Potassium Chloride Carbon Dioxide Anion Gap BUN Creatinine Estimated GFR (MDRD) Glucose POC Glucose 200 H 131 H Calcium B-Natriuretic Peptide 1307.6 H Vancomycin Trough
[2020-03-16] MEDS: Atorvastatin Calcium 40 MG TAB PO SCH (20:21)
[2020-03-16] MEDS: Mirtazapine 15 MG TAB PO SCH (20:22)
[2020-03-16] MEDS: Heparin 5,000 UNITS/ML VIAL SC SCH (20:22)
[2020-03-17] MEDS: Vancomycin 1 GM in Premix Bag 1 BAG IVPB SCH (03:10)
[2020-03-17] MEDS: Morphine 2 MG/ML VIAL SLOW IVP PRN ×4 (03:11→22:49)
[2020-03-17 04:57] LABS: #Basophils 0.1 thou/uL (0.0-0.2); #Eosinphils 0.1 thou/uL (0.0-0.7); #Lymphocytes 1.2 thou/uL (1.20-3.40); #Neutrophils 8.7 thou/uL (1.40-6.50); %Basophils 0.5 % (0.0-1.0); %Eosinophils 0.8 % (0.0-10.0); %Lymphocytes 10.7 % (21.0-51.0); %Monocytes 8.9 % (0.0-10.0); %Neutrophils 79.2 % (42.0-75.0); Mean Corpuscular HGB CONC 31.9 g/dL (32.0-36.0); Mean Corpuscular Hemoglobin 28.6 pg (27.0-31.0); Mean Corpuscular Volume 89.7 fL (78.0-98.0); Mean Platelet Volume 6.8 fL (7.4-10.4); Platelet Count 268 thou/uL (130-400); RBC Distribution Width 14.3 % (11.5-14.5); Red Blood Cell (RBC) Count 3.48 mill/uL (4.20-5.40)
[2020-03-17 05:25] LABS: Anion Gap 11 mmol/L (10-20); BUN (Urea Nitrogen) 14 mg/dL (9.8-20.1); Calc. Creatinine Clearance 52 mL/min (70-130); Calcium 7.7 mg/dL (7.8-10.44); Carbon Dioxide 22 mmol/L (22-29); Chloride 103 mmol/L (98-107); Estimated GFR-MDRD 47; Glucose 254 mg/dL (70-105); Potassium 3.7 mmol/L (3.5-5.1); Sodium 132 mmol/L (136-145)
[2020-03-17] MEDS: HumaLOG 300 UNITS/3 ML VIAL SC PRN ×4 (05:39→20:57)
[2020-03-17] MEDS: Cefepime 2 GM in Sodium Chloride 0.9% 100 ML IVPB SCH ×2 (08:23→20:54)
[2020-03-17] MEDS: Gabapentin 100 MG CAP PO SCH ×3 (08:24→20:49)
[2020-03-17] MEDS: Clopidogrel Bisulfate 75 MG TAB PO SCH (08:24)
[2020-03-17] MEDS: Citalopram 20 MG TAB PO SCH (08:24)
[2020-03-17] MEDS: Saccharomyces boulardii 250 MG CAP PO SCH (08:25)
[2020-03-17] MEDS: Metoprolol Tartrate 25 MG TAB PO SCH (08:25)
[2020-03-17] MEDS: Heparin 5,000 UNITS/ML VIAL SC SCH ×2 (08:26→20:50)
--- NOTE | 2020-03-17 11:17 | PDOC.HOSPP ---
- Subjective Encounter Date: 03/17/20 Encounter Time: 11:15 Subjective: No overnight events. Patient reports her breathing feels much improved. Still on 2L O2 NC. Denies chest pain. Deneis weakness, numbness. Chart and medications reviewed. - Objective Vital Signs & Weight: Vital Signs (12 hours) Temp Pulse Resp BP Pulse Ox 03/17/20 08:16 98.2 F 85 18 135/61 98 03/17/20 07:46 82 13 03/17/20 03:09 99.6 F 80 16 127/62 98 03/17/20 01:48 80 16 100 03/17/20 01:32 99 03/17/20 00:00 86 130/72 Weight Admit Weight 129 lb Weight 131 lb 6.4 oz I&O: 03/16/20 03/17/20 03/18/20 06:59 06:59 06:59 Intake Total 450 Output Total 500 Balance -50 Result Diagrams: 03/19/20 04:09 03/19/20 04:09 Additional Labs: Accuchecks 03/17/20 03/16/20 03/16/20 05:22 20:32 16:43 POC Glucose 264 H 205 H 273 H Hospitalist ROS - Review of Systems Constitutional: denies: fever, chills, sweats, weakness Eyes: denies: vision change Respiratory: denies: cough, shortness of breath, hemoptysis, sputum Cardiovascular: denies: chest pain, palpitations, orthopnea, light headedness Gastrointestinal: denies: nausea, vomiting, abdominal pain Genitourinary: denies: dysuria Musculoskeletal: reports: leg pain Skin: reports: lesions Neurological: denies: weakness, numbness - Medication Medications: Active Medications Generic Name Dose Route Start Last Admin Trade Name Freq PRN Reason Stop Dose Admin Albuterol/Ipratropium 3 ml 03/16/20 10:30 03/17/20 07:46 Ipratropium/Albuterol Sulfate 3 Ml Neb NEB 3 ml [id number] BRITTANY Administration Atorvastatin Calcium 80 mg 03/14/20 21:00 03/16/20 20:21 Atorvastatin Calcium 40 Mg Tab PO 80 mg HS BRITTANY Administration Citalopram Hydrobromide 40 mg 03/15/20 09:00 03/17/20 08:24 Citalopram 20 Mg Tab PO 40 mg DAILY BRITTANY Administration Clopidogrel Bisulfate 75 mg 03/15/20 09:00 03/17/20 08:24 Clopidogrel Bisulfate 75 Mg Tab PO 75 mg QAM BRITTANY Administration Gabapentin 200 mg 03/14/20 15:00 03/17/20 08:24 Gabapentin 100 Mg Cap PO 200 mg TID BRITTANY Administration Heparin Sodium (Porcine) 5,000 units 03/16/20 21:00 03/17/20 08:26 Heparin 5,000 Units/Ml Vial SC 5,000 units BID BRITTANY Administration Vancomycin HCl 1 gm/ Device 200 mls @ 200 mls/hr 03/16/20 04:00 03/17/20 03:10 IVPB 200 mls 0400 BRITTANY Administration Cefepime HCl 2 gm/ Sodium 100 mls @ 200 mls/hr 03/16/20 09:00 03/17/20 08:23 Chloride IVPB 100 mls Q12HR BRITTANY Administration Insulin Human Lispro 0 units 03/14/20 13:00 03/17/20 05:39 Humalog 300 Units/3 Ml Vial SC 4 unit .MILD SLIDING SCALE PRN Administration Mild Correctional Scale Insulin Human Lispro 0 units 03/14/20 13:00 03/14/20 22:44 Humalog 300 Units/3 Ml Vial SC 2 unit .BEDTIME SLIDING SC PRN Administration Bedtime Correctional Scale Metoprolol Tartrate 25 mg 03/15/20 09:00 03/17/20 08:25 Metoprolol Tartrate 25 Mg Tab PO 25 mg DAILY BRITTANY Administration Mirtazapine 15 mg 03/14/20 21:00 03/16/20 20:22 Mirtazapine 15 Mg Tab PO 15 mg HS BRITTANY Administration Morphine Sulfate 2 mg 03/14/20 17:38 03/17/20 08:25 Morphine 2 Mg/Ml Vial SLOW IVP 2 mg Q4H PRN Administration Moderate Pain (4-6) Ondansetron HCl 4 mg 03/14/20 17:39 03/15/20 09:30 Ondansetron Odt 4 Mg Tab PO 4 mg Q6H PRN Administration Nausea/Vomiting Saccharomyces Boulardii 250 mg 03/15/20 09:00 03/17/20 08:25 Saccharomyces Boulardii 250 Mg Cap PO 250 mg DAILY BRITTANY Administration Sodium Chloride 10 ml 03/16/20 09:00 11/29/20 08:25 Flush - Normal Saline 10 Ml Syringe IVF 10 ml Q12HR BRITTANY Administration - Exam General Appearance: NAD, awake alert Eye: PERRL, anicteric sclera ENT: normocephalic atraumatic, no oropharyngeal lesions, moist mucosa Neck: supple, symmetric, no JVD, no thyromegaly, no lymphadenopathy, no carotid bruit Heart: RRR, no murmur, no gallops, no rubs, normal peripheral pulses Respiratory: CTAB, no wheezes, no rales, no ronchi, normal chest expansion, no tachypnea, normal percussion Gastrointestinal: soft, non-tender, non-distended, normal bowel sounds, no palpable masses, no hepatomegaly, no splenomegaly, no bruit Extremities - other findings: Dressing C/D/I LLE Neurological: cranial nerve grossly intact, normal sensation to touch, no weakness, no focal deficits, no new deficit Musculoskeletal: normal tone, normal strength, no muscle wasting Psychiatric: normal affect, normal behavior, A&O x 3 Hosp A/P - Plan Infected arterial ulcer 49-year-old female with severe peripheral vascular disease and 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 DP and PT pulses dopperable, but monophasic. WBC 17.4, Lactic acid 2.1. Currently not meeting SIRS criteria. Concern for osteomyelitis giving extent of wound. Initial plain film showed no signs of bone abnormalities and question of air in subcutaneous tissues. Wound does have dry gangrene. Bone and tendon exposed. MRI showed no evidence of osteo. General surgery consulted for ? nec fasc. Agree that air on XR was likely dt tracking from open wound not nec fasc. General surgery debrided the area and drained abscess. CV surgery performed angiogram on 03/15 and was able to open the L iliac, but unable to restore blood flow to calf. Wound cultures growing serratia, enterococcus, and stenotrophomonas maltophilia which was sensitive to bactrim. Will add bactrim. Blood cx NGTd. ID consulted for further abx recommendations. WBC improving to 11 on 03/17. Continues on vanc and cefepime currently, add bactrim. Plan Continue IV vancomycin, cefepime -Add bactrim for stenotrophomonas maltophilia coverage -s/p angio with stent to L iliac -Wound care, will need wound vac set up at home -ID consult for abx guidance Peripheral vascular disease Significant peripheral vascular disease. 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 Patient does have two-vessel runoff to left lower extremity. DP and PT pulses dopplerable but monophasic. Patient with dependent rubor. Leg is warm. Patient on aspirin and Plavix at home. Given extent of PVD and severity of arterial wound, patient likely needs a BKA to salvage her leg and life. Discussed this with patient who is very resistant to amputation. CV surgery placed a stent to L iliac, however unable to restore blood flow to calf. Prognosis is poor. General surgery feels that patient would likely be able to heal a BKA since iliac opened, but patient continues to refuse. Discussed at length with patient the general post-operative course after a BKA. She would like to continue with conservative management for now. I encouraged her to discuss with her family. Plan Continue aspirin, Plavix s/p angio with iliac stent -Needs BKA, but patient refusing -Continue conservative management for now -General surgery following Congestive Heart Failure Patient with new O2 requirement on 2L NC on 03/16. Crackles heard at bases. CXR showed fluffy hilar opacities. Likely component of CHF given patient's CABG history. Last echo was more than 1 year ago and pt had normal EF at that time. BNP elevated at 1307. Repeat echo showed EF of 55-60% with diastolic dysfunction. Received one dose of lasix with improvement in her breathing. Crackles resolved on exam 03/17. Will attempt to wean patient off oxygen. Plan -Echo showed diastolic dysfunction -Improved after dose of lasix -Will attempt to wean off O2 today -Dubartolobs prn Acute kidney injury On presentation BUN/CR /.71. Baseline creatinine less than 1. Patient received 2 L of IV fluid in emergency room. Likely prerenal. Cr now improved to 13/1.16. Plan Continue to monitor kidney function Avoid nephrotoxic agents when possible Renal dosing as appropriate Hyperkalemia Patient with elevated potassium to 5.8. BUN/CR /.71. No EKG changes. Calcium to stabilize myocardium. Will repeat to confirm sample has not hemolyzed and further treat if needed. Repeat potassium 4.2. Suspect initial sample was hemolyzed. Will continue to monitor. Plan -Laboratory artifact -Continue to monitor Coronary artery disease History of coronary artery disease status post CABG. Patient on aspirin, Plavix, metoprolol, statin. We will continue home medications. Plan Continue aspirin, statin Continue Plavix, metoprolol Type 2 diabetes mellitus Type 2 diabetes on Metformin. Will hold in setting of BRETT. Will place patient on insulin sliding scale and ACHS glucose checks. Plan ISS ACHS glucose checks Hold home Metformin Hyperlipidemia Continue home statin. Hepatitis C Patient with history of hepatitis C infection. LFTs within normal limits. Does not appear that patient has undergone treatment for this. Patient will need outpatient follow-up with primary care for further management. Anxiety/depression Continue home Celexa. Patient denies SI/HI. DVT prophylaxis - heparin SQ FULL CODE Case discussed with attending physician, Dr. Harkins.
--- NOTE | 2020-03-17 11:57 | PDOC.GSPN ---
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 Some superficial sloughing tissue was removed and a VAC dressing was placed. Patient continues to decline amputation. Will see with wound care team on Wednesday. Patient does have a home wound VAC which was just delivered. Surgery Progress Note: Obj - Vital signs Vital signs: Vital Signs - Most Recent Temp Pulse Resp BP Pulse Ox 98.3 F 80 15 156/67 H 97 03/17/20 11:49 03/17/20 11:49 03/17/20 11:49 03/17/20 11:49 03/17/20 11:49 Surgery Progress Note: Results - Labs Result Diagrams: 03/17/20 04:43 03/17/20 04:43 Lab results: Laboratory Results - last 12 hr 03/17/20 03/17/20 03/17/20 04:43 04:43 05:22 WBC 11.0 H RBC 3.48 L Hgb 10.0 L Hct 31.2 L MCV 89.7 MCH 28.6 MCHC 31.9 L RDW 14.3 Plt Count 268 MPV 6.8 L Neutrophils % 79.2 H Lymphocytes % 10.7 L Monocytes % 8.9 Eosinophils % 0.8 Basophils % 0.5 Neutrophils # 8.7 H Lymphocytes # 1.2 Monocytes # 1.0 H Eosinophils # 0.1 Basophils # 0.1 Sodium 132 L Potassium 3.7 Chloride 103 Carbon Dioxide 22 Anion Gap 11 BUN 14 Creatinine 1.21 H Estimated GFR (MDRD) 47 Glucose 254 H POC Glucose 264 H Calcium 7.7 L 03/17/20 11:12 WBC RBC Hgb Hct MCV MCH MCHC RDW Plt Count MPV Neutrophils % Lymphocytes % Monocytes % Eosinophils % Basophils % Neutrophils # Lymphocytes # Monocytes # Eosinophils # Basophils # Sodium Potassium Chloride Carbon Dioxide Anion Gap BUN Creatinine Estimated GFR (MDRD) Glucose POC Glucose 276 H Calcium
--- NOTE | 2020-03-17 14:44 | OP ---
DATE OF PROCEDURE: 03/14/2020 PROCEDURE PERFORMED: Debridement of the left leg. DESCRIPTION OF PROCEDURE: After informed consent was obtained and appropriate antibiotics continued, the left leg was prepped with Betadine and sterilely draped. The eschar overlying the superolateral portion of the wound was sharply debrided and an abscess encountered and drained. This was sent for Gram stain and culture. Some of the necrotic subcutaneous tissue was debrided as well as some of the necrotic tendon. Some of the eschar along the inferior part of the wound was also sharply excised, but no additional abscess noted at this point. There was no pus tracking along the exposed tendon in this area and no significant tunneling beyond the borders of the eschar. The wound was packed with normal saline soaked gauze, covered with dry gauze and secured with Kerlix. The patient tolerated the procedure well. Approximately 15 sq cm of necrotic skin and subcutaneous tissue were excised. SPECIMEN: Pus for Gram stain and culture. Job ID: [id number] MTDD
[2020-03-17] MEDS: Morphine 4 MG/ML VIAL SLOW IVP PRN (18:24)
[2020-03-17] MEDS: Atorvastatin Calcium 40 MG TAB PO SCH (20:50)
[2020-03-17] MEDS: Mirtazapine 15 MG TAB PO SCH (20:50)
[2020-03-17] MEDS: Sulfamethoxazole/Trimethoprim 200 MG in Dextrose 5% in Water 125 ML IVPB SCH (20:54)
--- NOTE | 2020-03-18 01:33 | PDOC.EVN ---
Event Note - Event Note Event Note: Nursing called, watch technician says possible ST/T wave changes. Patient sleeping, asymptomatic, VSS. Will check 12 lead EKG.
[2020-03-18 03:27] LABS: #Basophils 0.1 thou/uL (0.0-0.2); #Eosinphils 0.1 thou/uL (0.0-0.7); #Monocytes 1.1 thou/uL (0.11-0.59); #Neutrophils 6.9 thou/uL (1.40-6.50); %Basophils 0.6 % (0.0-1.0); %Eosinophils 1.1 % (0.0-10.0); %Lymphocytes 19.8 % (21.0-51.0); %Monocytes 11.1 % (0.0-10.0); %Neutrophils 67.5 % (42.0-75.0); Hemoglobin 10.4 g/dL (12.0-16.0); Mean Corpuscular HGB CONC 32.8 g/dL (32.0-36.0); Mean Corpuscular Hemoglobin 29.4 pg (27.0-31.0); Mean Corpuscular Volume 89.5 fL (78.0-98.0); Mean Platelet Volume 7.1 fL (7.4-10.4); Platelet Count 265 thou/uL (130-400); RBC Distribution Width 14.2 % (11.5-14.5); Red Blood Cell (RBC) Count 3.53 mill/uL (4.20-5.40); White Blood Cell (WBC) Count 10.3 thou/uL (4.8-10.8)
[2020-03-18 03:40] LABS: Vancomycin, Trough 14.6 ug/mL
[2020-03-18 03:42] LABS: Anion Gap 12 mmol/L (10-20); BUN (Urea Nitrogen) 23 mg/dL (9.8-20.1); Calc. Creatinine Clearance 47 mL/min (70-130); Calcium 8.5 mg/dL (7.8-10.44); Carbon Dioxide 25 mmol/L (22-29); Chloride 102 mmol/L (98-107); Estimated GFR-MDRD 42; Glucose 257 mg/dL (70-105); Potassium 3.6 mmol/L (3.5-5.1); Sodium 135 mmol/L (136-145)
[2020-03-18] MEDS: Morphine 2 MG/ML VIAL SLOW IVP PRN (04:02)
[2020-03-18] MEDS: Vancomycin 1 GM in Premix Bag 1 BAG IVPB SCH (04:02)
[2020-03-18] MEDS: HumaLOG 300 UNITS/3 ML VIAL SC PRN ×3 (06:03→17:11)
[2020-03-18] MEDS: Clopidogrel Bisulfate 75 MG TAB PO SCH (08:53)
[2020-03-18] MEDS: Gabapentin 100 MG CAP PO SCH ×3 (08:53→20:50)
[2020-03-18] MEDS: Citalopram 20 MG TAB PO SCH (08:53)
[2020-03-18] MEDS: Saccharomyces boulardii 250 MG CAP PO SCH (08:55)
[2020-03-18] MEDS: Morphine 4 MG/ML VIAL SLOW IVP PRN ×4 (08:55→21:03)
[2020-03-18] MEDS: Metoprolol Tartrate 25 MG TAB PO SCH (08:55)
[2020-03-18] MEDS: Sulfamethoxazole/Trimethoprim 200 MG in Dextrose 5% in Water 125 ML IVPB SCH (08:58)
[2020-03-18] MEDS: Heparin 5,000 UNITS/ML VIAL SC SCH ×2 (09:06→20:50)
[2020-03-18] MEDS ORDERED: Dextrose 50% Abboject 50 ML SYRINGE SLOW IVP PRN (09:46)
[2020-03-18] MEDS ORDERED: Dextrose 5% in Water 1,000 ML IV PRN (09:46)
[2020-03-18] MEDS: Cefepime 2 GM in Sodium Chloride 0.9% 100 ML IVPB SCH (10:27)
[2020-03-18] MEDS ORDERED: Insulin Glargine 20 UNITS in Pre-Filled Syringe 1 EACH SC SCH ×2 (11:30→21:00)
--- NOTE | 2020-03-18 14:10 | PDOC.HOSPP ---
- Subjective Encounter Date: 03/18/20 Subjective: Pt has no new complaints. Has occasional pain in LLE. - Objective Vital Signs & Weight: Vital Signs (12 hours) Temp Pulse Resp BP Pulse Ox 03/18/20 12:00 97.9 F 80 13 167/73 H 98 03/18/20 10:44 75 16 95 03/18/20 07:38 98.7 F 84 12 150/63 H 99 03/18/20 07:16 92 L 03/18/20 07:15 84 16 92 L 03/18/20 04:00 98.0 F 104 H 18 151/67 H 97 03/18/20 02:53 88 16 98 Weight Admit Weight 129 lb Weight 130 lb I&O: 03/17/20 03/18/20 03/19/20 06:59 06:59 06:59 Intake Total 450 1800 Output Total 500 2750 Balance -50 -950 Result Diagrams: 03/18/20 03:12 03/18/20 03:12 Additional Labs: Accuchecks 03/18/20 03/18/20 03/17/20 10:18 05:43 20:51 POC Glucose 240 H 304 H 264 H 03/17/20 17:07 POC Glucose 263 H Hospitalist ROS - Review of Systems Constitutional: denies: fever, chills, sweats, weakness, malaise, other Eyes: reports: pain. denies: vision change, conjunctivae inflammation, eyelid inflammation, redness, other ENT: denies: ear pain, ear discharge, nose pain, nose discharge, nose congestion, mouth pain, mouth swelling, throat pain, throat swelling, other Respiratory: denies: cough, dry, shortness of breath, hemoptysis, SOB with excertion, pleuritic pain, sputum, wheezing, other Cardiovascular: denies: chest pain, palpitations, orthopnea, paroxysmal noc. dyspnea, edema, light headedness, other Gastrointestinal: denies: nausea, vomiting, abdominal pain, diarrhea, constipation, melena, hematochezia, other Genitourinary: denies: dysuria, frequency, incontinence, hematuria, retention, other Musculoskeletal: denies: neck pain, shoulder pain, arm pain, back pain, hand pain, leg pain, foot pain, other Skin: denies: rash, lesions, elena, bruising, other Neurological: denies: weakness, numbness, incoordination, change in speech, confusion, seizures, other - Medication Medications: Active Medications Generic Name Dose Route Start Last Admin Trade Name Freq PRN Reason Stop Dose Admin Albuterol/Ipratropium 3 ml 03/16/20 10:30 03/18/20 10:44 Ipratropium/Albuterol Sulfate 3 Ml Neb NEB 3 ml [id number] BRITTANY Administration Atorvastatin Calcium 80 mg 03/14/20 21:00 03/17/20 20:50 Atorvastatin Calcium 40 Mg Tab PO 80 mg HS BRITTANY Administration Citalopram Hydrobromide 40 mg 03/15/20 09:00 03/18/20 08:53 Citalopram 20 Mg Tab PO 40 mg DAILY BRITTANY Administration Clopidogrel Bisulfate 75 mg 03/15/20 09:00 03/18/20 08:53 Clopidogrel Bisulfate 75 Mg Tab PO 75 mg QAM BRITTANY Administration Gabapentin 200 mg 03/14/20 15:00 03/18/20 08:53 Gabapentin 100 Mg Cap PO 200 mg TID BRITTANY Administration Heparin Sodium (Porcine) 5,000 units 03/16/20 21:00 03/18/20 09:06 Heparin 5,000 Units/Ml Vial SC 5,000 units BID BRITTANY Administration Vancomycin HCl 1 gm/ Device 200 mls @ 200 mls/hr 03/16/20 04:00 03/18/20 04:02 IVPB 200 mls 0400 BRITTANY Administration Cefepime HCl 2 gm/ Sodium 100 mls @ 200 mls/hr 03/16/20 09:00 03/18/20 10:27 Chloride IVPB 100 mls Q12HR BRITTANY Administration Trimethoprim/Sulfamethoxazole 125 mls @ 125 mls/hr 03/17/20 21:00 03/18/20 08:58 200 mg/ Dextrose/Water IVPB 125 mls Q12HR BRITTANY Administration Insulin Human Lispro 0 units 03/14/20 13:00 03/18/20 10:28 Humalog 300 Units/3 Ml Vial SC 3 unit .MILD SLIDING SCALE PRN Administration Mild Correctional Scale Insulin Human Lispro 0 units 03/14/20 13:00 03/17/20 20:57 Humalog 300 Units/3 Ml Vial SC 3 unit .BEDTIME SLIDING SC PRN Administration Bedtime Correctional Scale Metoprolol Tartrate 25 mg 03/15/20 09:00 03/18/20 08:55 Metoprolol Tartrate 25 Mg Tab PO 25 mg DAILY BRITTANY Administration Mirtazapine 15 mg 03/14/20 21:00 03/17/20 20:50 Mirtazapine 15 Mg Tab PO 15 mg HS BRITTANY Administration Morphine Sulfate 4 mg 03/14/20 17:38 03/18/20 13:13 Morphine 4 Mg/Ml Vial SLOW IVP 4 mg Q4H PRN Administration Severe Pain (7-10) Morphine Sulfate 2 mg 03/14/20 17:38 03/18/20 04:02 Morphine 2 Mg/Ml Vial SLOW IVP 2 mg Q4H PRN Administration Moderate Pain (4-6) Ondansetron HCl 4 mg 03/14/20 17:39 03/15/20 09:30 Ondansetron Odt 4 Mg Tab PO 4 mg Q6H PRN Administration Nausea/Vomiting Saccharomyces Boulardii 250 mg 03/15/20 09:00 03/18/20 08:55 Saccharomyces Boulardii 250 Mg Cap PO 250 mg DAILY BRITTANY Administration Sodium Chloride 10 ml 03/16/20 09:00 03/18/20 08:58 Flush - Normal Saline 10 Ml Syringe IVF 10 ml Q12HR BRITTANY Administration - Exam General Appearance: NAD Eye: PERRL ENT: normocephalic atraumatic, no oropharyngeal lesions Neck: supple, symmetric, no JVD, no thyromegaly, no lymphadenopathy Heart: RRR, no murmur, no gallops, normal peripheral pulses, diminshed peripheral pulses Respiratory: CTAB, no wheezes, no rales, no ronchi, normal chest expansion Gastrointestinal: soft, non-tender, non-distended, normal bowel sounds Extremities: no clubbing, no edema Extremities - other findings: Dressing and wound vac over LLE Skin: no lesions, no rashes Neurological: cranial nerve grossly intact, no focal deficits Musculoskeletal: normal strength, no muscle wasting Psychiatric: normal affect, normal behavior, A&O x 3 Hosp A/P (1) PVD (peripheral vascular disease) Code(s): I73.9 - PERIPHERAL VASCULAR DISEASE, UNSPECIFIED Status: Acute Plan: Pt is s/p CTA aorta runoff which showed severe dz. Pt has BL occluded iliacs and L SFa. She was s/p angiogram on 03/15, with opening of iliac vessel but inability to restore flow. Pt was advised on BKA due to sever PVD w occlusion but has declined BKA. Will cont ASA and Plavix for now. (2) Lower extremity ulceration Code(s): L97.909 - NON-PRS CHRONIC ULC UNSP PRT OF UNSP LOW LEG W UNSP SEVERITY Status: Acute Qualifiers: Laterality: left Plan: Made worse by severe PVD. Pt is s/p I and D and wound vac placemet. Will f/u with further recs from [facility]X. Control pain. (3) CAD (coronary artery disease) Code(s): I25.10 - ATHSCL HEART DISEASE OF [place] CORONARY ARTERY W/O ANG PCTRS Status: Chronic Qualifiers: Coronary Disease-Associated Artery/Lesion type: [place] artery [place] vs. transplanted heart: [place] heart Plan: Stable. Cont med mgt. (4) Diabetes Code(s): E11.9 - TYPE 2 DIABETES MELLITUS WITHOUT COMPLICATIONS Status: Chronic Qualifiers: Diabetes mellitus type: type 2 Diabetes mellitus fdc insulin use: w ithout watermelon inspector use Diabetes mellitus complication status: with circulatory complication Plan: Uncontrolled. have started Glargin 20 units Daily. Will adjust Glargin dose as indicated. Cover with SSI. (5) Hypertension Code(s): I10 - ESSENTIAL (PRIMARY) HYPERTENSION Status: Chronic Qualifiers: Hypertension type: essential hypertension Qualified Code(s): I10 - Essential (primary) hypertension Plan: Uncontrolled. Will add Amlodipine. Cont to adjust BP meds as indicated. (6) Wound infection Code(s): T14.8XXA - OTHER INJURY OF UNSPECIFIED BODY REGION, INITIAL ENCOUNTER; L08.9 - LOCAL INFECTION OF THE SKIN AND SUBCUTANEOUS TISSUE, UNSP Status: Acute Plan: Infection of LLE. Cx are positive for Serratia, Enterococcus and S. malto. ID has been consulted. Will f/u with their recs. Cont current abx. (7) BRETT (acute kidney injury) Code(s): N17.9 - ACUTE KIDNEY FAILURE, UNSPECIFIED Status: Acute Plan: Improving. Cont to monitor Cr. (8) CHF (congestive heart failure) Code(s): I50.9 - HEART FAILURE, UNSPECIFIED Status: Acute Qualifiers: Heart failure type: unspecified Heart failure chronicity: chronic Qualified Code(s): I50.9 - Heart failure, unspecified Plan: Cont med mgt. (9) Anxiety Code(s): F41.9 - ANXIETY DISORDER, UNSPECIFIED Status: Acute Plan: Stable. Cont meds. (10) Hep C w/o coma, chronic Code(s): B18.2 - CHRONIC VIRAL HEPATITIS C Status: Chronic Plan: Pt has not had this treated. Will need a referral for outpt f/u with [facility] - Plan continue antibiotics, DVT proph w/heparin PPx: Heparin. CODE: FULL. Dispo: Wound eval on Tues by Sx and wound care team.
--- NOTE | 2020-03-18 16:56 | EKG ---
Test Reason : NOW Blood Pressure : / mmHG Vent. Rate : 086 BPM Atrial Rate : 086 BPM P-R Int : 118 ms QRS Dur : 070 ms QT Int : 368 ms P-R-T Axes : 069 035 264 degrees QTc Int : 440 ms Normal sinus rhythm Low voltage QRS Cannot rule out Anterior infarct (cited on or before 14-MAR-2020) Nonspecific ST-T changes Abnormal ECG When compared with ECG of 14-MAR-2020 23:08, (Unconfirmed) No significant change was found Confirmed by DR. Christofer BENJAMIN ([id number]) on 03/18/2020 4:55:49 PM Referred By: Santo DAVEY Confirmed By:DR. Christofer BENJAMIN
[2020-03-18] MEDS: Atorvastatin Calcium 40 MG TAB PO SCH (20:50)
[2020-03-18] MEDS: metroNIDAZOLE 500 MG TAB PO SCH (20:50)
[2020-03-18] MEDS: Mirtazapine 15 MG TAB PO SCH (20:50)
--- NOTE | 2020-03-18 23:43 | CON ---
DATE OF CONSULTATION: 03/18/2020 REASON FOR CONSULTATION: Ulcer of left leg, peripheral vascular disease. HISTORY OF PRESENT ILLNESS: A 49-year-old who has history of chronic smoking, type 2 diabetes, neuropathy, ischemic cardiomyopathy with prior bypass graft surgery and hypertension, who has had a chronic ulcer in the anterior left leg for the past 6 months and she was going to Wound Care and apparently had a wound VAC ordered, but the pain became worse and she ended being admitted. She had a debridement of the area. There was an eschar covering the entire surface of the ulcer. Dr. Montero did surgical debridement on March 17. There was an abscess encountered under the eschar that was drained. Culture submitted and currently patient is feeling better. She denies any headaches. No visual symptoms, sore throat, odynophagia, dysphagia. No cough or sputum production. No chest pain. No abdominal pain, diarrhea. No genitourinary symptoms. PAST MEDICAL HISTORY: Type 2 diabetes, hypertension, ischemic cardiomyopathy with prior bypass graft surgery, neuropathy, atrial fibrillation, hypertension, chronic hep C, condyloma, and hyperlipidemia. SOCIAL HISTORY: Lives in [place] with . Disabled. Quit smoking about a year ago. Drinks occasionally. ALLERGIES: CODEINE. FAMILY HISTORY: Diabetes type 2. CURRENT MEDICATIONS: 1. Cefepime. 2. Glucagon. 3. Insulin. 4. Bactrim. 5. Vancomycin. PHYSICAL EXAMINATION: VITAL SIGNS: T-max 99.6, is now 98; blood pressure 150/60; heart rate 82; O2 saturation 94% on 1 L. SKIN: Shows the necrotic ulcer after debridement. There are 2 long segments of desiccated tendons along the medial aspect of the leg, still quite a bit of kind of yellowish exudate close to the base of the wound, very little red tissue. The margins are kind of desiccated with the surface of necrotic tissue along the margin as well. The patient has a peripheral IV access. There is no lymphadenopathy. HEENT: Ocular movements conjugate. Oral cavity with numerous teeth with decay and desiccation of enamel. NECK: Supple. No jugular venous distention. LUNGS: Symmetric. Clear breath sounds. HEART: S1, S2. Regular rate. No S3 or S4. ABDOMEN: Soft, not distended or tender. No ascites. No bladder distention. EXTREMITIES: No joint inflammatory activity. Pulses are faintly palpable in popliteals and dorsalis pedis. Cap refill is delayed. She is able to move extremities. She is able to ambulate. Cognitive function appears to be intact. LABORATORY DATA: White cell count started at 17, is down to 10.3; hemoglobin 10.4; platelets 265 with 67% neutrophils. Creatinine 1.32, which is improved from admission. Liver profile was normal. Albumin 3.1. SARS-CoV-2 PCR negative. Cultures from the area with Serratia marcescens, obtained from 2 different samples, Stenotrophomonas maltophilia. She also had Proteus mirabilis. All organisms were very broad susceptibility profile except for Stenotrophomonas maltophilia. Echocardiogram, EF 55%. Other findings are not particularly remarkable. Chest x-ray with some perihilar opacities. MRI did not show any bony involvement. Aorta with runoff, CTA on March 07 with severe disease in lower extremities, multifocal near-complete occlusion of common iliac arteries, complete occlusion of left external iliac artery, complete occlusion of left superficial femoral artery with reconstitution, 2-vessel runoff to the ankle. Severe findings in the right side as well. ASSESSMENT: Type 2 diabetes, hyperlipidemia, peripheral vascular disease, chronic ulcer of left leg with underlying eschar, necrosis, and abscess with the organisms described. Dr. Wilson did a procedure on the , consisted of percutaneous angioplasty of left common femoral and external iliac arteries, stenting of the left common and external iliacs. DISCUSSION: Now that patient had revascularization, she will continue with wound care. Pt is at high risk for BKA amputation or even AKA level amputation depending on next few weeks in terms of wound progress. We will switch her to oral quinolone plus Augmentin. Quinolones have excellent bioavailability and susceptibility profile is suitable for the treatment of the current process. Duration of therapy will depend on the clinical progress of the wound, probably 2 weeks at least. May consider hyperbaric treatment as well. Job ID: [id number] [facility]
[2020-03-19 04:51] LABS: #Eosinphils 0.3 thou/uL (0.0-0.7); #Lymphocytes 1.7 thou/uL (1.20-3.40); #Monocytes 1.6 thou/uL (0.11-0.59); #Neutrophils 11.8 thou/uL (1.40-6.50); %Basophils 0.1 % (0.0-1.0); %Eosinophils 2.1 % (0.0-10.0); %Lymphocytes 10.8 % (21.0-51.0); %Monocytes 10.4 % (0.0-10.0); %Neutrophils 76.6 % (42.0-75.0); Hemoglobin 10.4 g/dL (12.0-16.0); Mean Corpuscular HGB CONC 33.5 g/dL (32.0-36.0); Mean Corpuscular Hemoglobin 29.5 pg (27.0-31.0); Mean Corpuscular Volume 88.1 fL (78.0-98.0); Mean Platelet Volume 7.6 fL (7.4-10.4); Platelet Count 274 thou/uL (130-400); RBC Distribution Width 14.4 % (11.5-14.5); Red Blood Cell (RBC) Count 3.52 mill/uL (4.20-5.40); White Blood Cell (WBC) Count 15.4 thou/uL (4.8-10.8)
[2020-03-19 05:21] LABS: Anion Gap 14 mmol/L (10-20); BUN (Urea Nitrogen) 25 mg/dL (9.8-20.1); Calc. Creatinine Clearance 45 mL/min (70-130); Calcium 8.5 mg/dL (7.8-10.44); Carbon Dioxide 24 mmol/L (22-29); Chloride 98 mmol/L (98-107); Estimated GFR-MDRD 40; Glucose 207 mg/dL (70-105); Sodium 132 mmol/L (136-145)
[2020-03-19] MEDS: Morphine 2 MG/ML VIAL SLOW IVP PRN (05:21)
[2020-03-19] MEDS: HumaLOG 300 UNITS/3 ML VIAL SC PRN ×2 (06:04→11:36)
[2020-03-19] MEDS: Citalopram 20 MG TAB PO SCH (08:39)
[2020-03-19] MEDS: Gabapentin 100 MG CAP PO SCH ×2 (08:40→14:37)
[2020-03-19] MEDS: Clopidogrel Bisulfate 75 MG TAB PO SCH (08:40)
[2020-03-19] MEDS: Saccharomyces boulardii 250 MG CAP PO SCH (08:41)
[2020-03-19] MEDS: metroNIDAZOLE 500 MG TAB PO SCH ×2 (08:41→14:37)
[2020-03-19] MEDS: Metoprolol Tartrate 25 MG TAB PO SCH (08:41)
[2020-03-19] MEDS: Heparin 5,000 UNITS/ML VIAL SC SCH (08:42)
[2020-03-19] MEDS ORDERED: Insulin Glargine 20 UNITS in Pre-Filled Syringe 1 EACH SC SCH (09:00)
[2020-03-19] MEDS ORDERED: Amlodipine 10 MG TAB PO SCH (09:00)
[2020-03-19] MEDS: Morphine 4 MG/ML VIAL SLOW IVP PRN ×2 (10:30→14:38)
--- NOTE | 2020-03-19 11:55 | PDOC.GSPN ---
Surgery Progress Note: Subj - Subjective Narrative: Patient is doing okay. Pain is improved. Wound was examined with the wound care team. There is some superficial slough around the edges but the center is clean and granulating. The remaining tendons look viable healthy. No surgical debridement necessary today. We are going to put some MultiDex powder on it for some chemical debridement and continue with the VAC. She has a wound VAC at home. From a surgical standpoint she can be discharged. She understands that I still think it is relatively unlikely that she will completely heal this, but she continues to decline amputation. She can follow-up in the wound care clinic for VAC changes or get home health for this. I will see her back in my clinic in a couple weeks. Surgery Progress Note: Obj - Vital signs Vital signs: Vital Signs - Most Recent Temp Pulse Resp BP Pulse Ox 98.5 F 88 16 152/68 H 99 03/19/20 11:32 03/19/20 11:32 03/19/20 11:32 03/19/20 11:32 03/19/20 11:32 Surgery Progress Note: Results - Labs Result Diagrams: 03/19/20 04:09 03/19/20 04:09 Lab results: Laboratory Results - last 12 hr 03/19/20 03/19/20 03/19/20 04:09 04:09 05:59 WBC 15.4 H RBC 3.52 L Hgb 10.4 L Hct 31.0 L MCV 88.1 MCH 29.5 MCHC 33.5 RDW 14.4 Plt Count 274 MPV 7.6 Neutrophils % 76.6 H Lymphocytes % 10.8 L Monocytes % 10.4 H Eosinophils % 2.1 Basophils % 0.1 Neutrophils # 11.8 H Lymphocytes # 1.7 Monocytes # 1.6 H Eosinophils # 0.3 Basophils # 0.0 Sodium 132 L Potassium 4.0 Chloride 98 Carbon Dioxide 24 Anion Gap 14 BUN 25 H Creatinine 1.39 H Estimated GFR (MDRD) 40 Glucose 207 H POC Glucose 219 H Calcium 8.5 03/19/20 10:51 WBC RBC Hgb Hct MCV MCH MCHC RDW Plt Count MPV Neutrophils % Lymphocytes % Monocytes % Eosinophils % Basophils % Neutrophils # Lymphocytes # Monocytes # Eosinophils # Basophils # Sodium Potassium Chloride Carbon Dioxide Anion Gap BUN Creatinine Estimated GFR (MDRD) Glucose POC Glucose 299 H Calcium
--- NOTE | 2020-03-19 12:08 | PQF ---
CLINICAL DOCUMENTATION CLARIFICATION FORM: Dear Dr. Jennifer Luna Date: 03/19/2020 8159 Please exercise your independent, professional judgment in responding to the clarification form. Clinical indicators are provided on the bottom of this form for your review. Please check appropriate box(es): CONGESTIVE HEART FAILURE: A. ACUITY [ ] Acute [ ] Acute on Chronic [ X ] Chronic B. TYPE: [ ] Systolic / HFrEF [ ] Diastolic / HFpEF [ ] Combined Systolic / Diastolic [ ] Hypertensive Heart and Kidney diseas [ X ] Hypertensive Heart Diseas [ ] Hypertensive Kidney Disease [ ] Other diagnosis [ ] Unable to determine In addition, please specify: Present on Admission (POA): [ ] Yes [ ] No [ ] Unable to determine For continuity of documentation, please document condition throughout progress notes and discharge summary. Thank You. To be completed by CDI/Coding staff for physician review: CLINICAL INDICATORS - SIGNS / SYMPTOMS / LABS / RESULTS AND LOCATION IN EMR 03/16 BNP 1307.6 A/P : Congestive Heart Failure ( PN/Olejeme) 03/18 EF visually estimated at 55-60% . diastolic dysfunction ( Echo 03/16) Pt with new oxygen requirement of 2l/NC. Denies SOB. Likely component of CHF given patients CABG history. CXR: bilateral perihilar opacities (03/15) RISKS FACTORS / RESULTS AND LOCATION IN EMR History of CAD/ischemic heart disease, hypertension ( H&P/ Gilberto) 03/15 TREATMENTS / RESULTS AND LOCATION IN EMR Supplemental oxygen (03/15 present) Lasix IVP ( 03/16) Thank you! CDS Signature: Ora Law RN Phone #:[phone] Date: 03/19/2020 This is a permanent part of the Medical Record [facility]
[2020-03-19] MEDS ORDERED: traMADol HCl 50 MG TAB PO PRN (15:09)
[2020-03-19 15:22] VITALS: BP 129/59; TEMP 98.1
[2020-03-19] MEDS ORDERED: metFORMIN 500 MG TAB PO SCH (17:00)
[2020-03-19] MEDS ORDERED: Amoxicillin/Potassium Clav 875 MG TAB PO SCH (21:00)
--- NOTE | 2020-03-20 02:46 | DIS ---
DATE OF ADMISSION: 03/14/2020 DATE OF DISCHARGE: 03/19/2020 CONSULTATIONS ON THE CASE: 1. Albino Nash MD. 2. Ramana Armstrong MD, Infectious Disease. 3. Portillo Montero MD, General Surgery. DISCHARGING DIAGNOSES: 1. Peripheral vascular disease with history of status post CTA of aorta with runoff, status post angiogram on 03/15 with opening of iliac vessels, but inability to restore flow. The patient was advised below-knee amputation due to severe peripheral vascular disease with occlusion, but has declined any surgical amputation. Patient to be continued on aspirin and Plavix for now. 2. Lower extremity ulceration. Long-term wound VAC placement done. Follow up with Wound Care Clinic along with bariatric treatment advised. 3. Coronary artery disease. 4. Diabetes mellitus type 2. 5. Benign essential hypertension. 6. History of chronic wound infection. 7. Congestive heart failure. 8. Acute kidney injury. PHYSICAL EXAMINATION: CVS: S1, S2. CHEST: Bilateral air entry present. No rhonchi. No wheeze. ABDOMEN: Soft, nontender. Bowel sounds are present. EXTREMITIES: No cyanosis. HOSPITAL COURSE: This is a very pleasant 49-year-old female with a chronic wound infection associated with severe peripheral vascular disease along with history of hypertension, diabetes mellitus, hyperlipidemia, who was admitted to the Hospitalist Services for infected wound with severe peripheral vascular disease, was evaluated by Cardiology Services and a CTA follow-through procedure was done, which eventually showed evidence of iliac stenosis, which was reviewed. Procedure evaluation unfortunately could not open up any blood flow, so BKA was advised, but the patient refused any kind of that procedure at this point in time, and advised to follow up with Wound Care as an outpatient along with bariatric clinic. The patient remained hemodynamically optimized during her course of hospitalization, was reviewed and evaluated by Infectious Disease and basing on culture sensitivities, she was advised oral Augmentin therapy as well as Levaquin for a 14-day course. The patient remained afebrile, hemodynamically stable during discharge plan. All questions and concerns were addressed. She has been advised to follow up with Wound Care as well as bariatric care for her wound and again refused to have any BKA procedure done at this point in time, though it is a choice of treatment. The patient was hemodynamically optimized on discharge. DISPOSITION: Discharged home with wound care clinic followup. Consultation follows with Infectious Disease as well as Cardiology. Advance directives are full code. The whole discharge process including discharge coordination took me more than 35 minutes. Job ID: [id number]
[2020-03-20] MEDS ORDERED: Potassium Chloride 20 MEQ TAB PO SCH (08:00)
[2020-03-20] MEDS ORDERED: Fish Oil 1,000 MG CAP PO SCH (09:00)
[2020-03-20] MEDS ORDERED: Alogliptin 25 MG TAB PO SCH (09:00)
[2020-03-20] MEDS ORDERED: Furosemide 40 MG TAB PO SCH (09:00)
== END 2020-03-19 16:30 | disposition home or self-care (01) | DRG 253 ==
LOC: ERS 01:37 → 2NO 04:25
PROVIDERS: ADMIT Internal Medicine; ATTEND Internal Medicine
PROC: 0LBM0ZZ Excision of Left Upper Leg Tendon, Open Approach (ICD-10-PCS; 2020-03-14)
PROC: 047D34Z Dilation of Left Common Iliac Artery with Drug-eluting Intraluminal Device, Percutaneous Approach (ICD-10-PCS; principal; 2020-03-15)
PROC: 047J34Z Dilation of Left External Iliac Artery with Drug-eluting Intraluminal Device, Percutaneous Approach (ICD-10-PCS; 2020-03-15)
PROC: B4101ZZ Fluoroscopy of Abdominal Aorta using Low Osmolar Contrast (ICD-10-PCS; 2020-03-15)
DX: E11.52 Type 2 diabetes mellitus with diabetic peripheral angiopathy with gangrene (principal); N17.9 Acute kidney failure, unspecified; I96 Gangrene, not elsewhere classified; L97.829 Non-pressure chronic ulcer of other part of left lower leg with unspecified severity; L03.116 Cellulitis of left lower limb; E11.42 Type 2 diabetes mellitus with diabetic polyneuropathy; I48.91 Unspecified atrial fibrillation; F41.9 Anxiety disorder, unspecified; F32.9 Major depressive disorder, single episode, unspecified; E78.5 Hyperlipidemia, unspecified; E87.5 Hyperkalemia; M19.90 Unspecified osteoarthritis, unspecified site; I25.10 Atherosclerotic heart disease of native coronary artery without angina pectoris; B18.2 Chronic viral hepatitis C; I11.0 Hypertensive heart disease with heart failure; E11.621 Type 2 diabetes mellitus with foot ulcer; L97.529 Non-pressure chronic ulcer of other part of left foot with unspecified severity; E11.51 Type 2 diabetes mellitus with diabetic peripheral angiopathy without gangrene; E11.65 Type 2 diabetes mellitus with hyperglycemia; E78.00 Pure hypercholesterolemia, unspecified; I25.5 Ischemic cardiomyopathy; I70.248 Atherosclerosis of native arteries of left leg with ulceration of other part of lower leg; Z53.29 Procedure and treatment not carried out because of patient's decision for other reasons; Z90.49 Acquired absence of other specified parts of digestive tract; Z95.1 Presence of aortocoronary bypass graft; Z88.5 Allergy status to narcotic agent; Z88.0 Allergy status to penicillin; Z88.8 Allergy status to other drugs, medicaments and biological substances; Z79.84 Long term (current) use of oral hypoglycemic drugs; Z79.899 Other long term (current) drug therapy; I25.2 Old myocardial infarction
CPT/HCPCS: 36415; 36416; 37221; 71045; 76942; 80048; 80053; 80202; 83605; 83880; 85025; 85347; 85652; 86140; 87040; 87070; 87077; 87186; 87205; 87635; 93005; 93010; 93306; 94640; 96365; 96375; C1725; J0692; J1644; J1815; J1940; J2001; J2270; J2720; J3370; J3490; J7050; J7070; J7620; Q0162; U0003

== ENCOUNTER 2020-06-24 12:14 | Inpatient (IN) | payer OTHER ==
[2020-06-24 13:21] LABS: #Basophils 0.1 thou/uL (0.0-0.2); #Eosinphils 0.1 thou/uL (0.0-0.7); #Lymphocytes 1.4 thou/uL (1.20-3.40); #Monocytes 0.8 thou/uL (0.11-0.59); #Neutrophils 5.9 thou/uL (1.40-6.50); %Basophils 0.9 % (0.0-1.0); %Eosinophils 1.6 % (0.0-10.0); %Lymphocytes 16.5 % (21.0-51.0); %Neutrophils 70.9 % (42.0-75.0); Hemoglobin 12.1 g/dL (12.0-16.0); Mean Corpuscular HGB CONC 30.2 g/dL (32.0-36.0); Mean Corpuscular Volume 76.1 fL (78.0-98.0); Mean Platelet Volume 8.4 fL (7.4-10.4); Platelet Count 367 thou/uL (130-400); RBC Distribution Width 19.3 % (11.5-14.5); Red Blood Cell (RBC) Count 5.27 mill/uL (4.20-5.40); White Blood Cell (WBC) Count 8.3 thou/uL (4.8-10.8)
[2020-06-24 13:50] LABS: ALT (SGPT) 8 U/L (8-55); AST (SGOT) 14 U/L (5-34); Albumin 2.8 g/dL (3.5-5.0); Alkaline Phosphatase 101 U/L (40-110); Anion Gap 13 mmol/L (10-20); BUN (Urea Nitrogen) 7 mg/dL (9.8-20.1); Bilirubin, Total 0.6 mg/dL (0.2-1.2); Calc. Creatinine Clearance 0 mL/min (70-130); Calcium 8.1 mg/dL (7.8-10.44); Carbon Dioxide 26 mmol/L (22-29); Chloride 100 mmol/L (98-107); Globulin 3.8 g/dL (2.4-3.5); Glucose 102 mg/dL (70-105); Potassium 3.9 mmol/L (3.5-5.1); Protein, Total 6.6 g/dL (6.0-8.3); Sodium 135 mmol/L (136-145)
[2020-06-24] MEDS ORDERED: Furosemide 40 MG/4 ML VIAL ONE ×2 (14:08→21:11)
[2020-06-24] MEDS ORDERED: Morphine 4 MG/ML VIAL ONE (14:18)
[2020-06-24] MEDS ORDERED: Nitroglycerin 2% Ointment 1 INCH/1 GM Packet ONE (14:18)
[2020-06-24] MEDS ORDERED: Dextrose 5% in Water 1,000 ML IV PRN (17:05)
[2020-06-24] MEDS ORDERED: Dextrose 50% Abboject 50 ML SYRINGE SLOW IVP PRN (17:05)
[2020-06-24] MEDS ORDERED: Metoprolol Tartrate 5 MG/5 ML VIAL IVP PRN (17:07)
[2020-06-24] MEDS ORDERED: acetaZOLAMIDE Sodium 500 mg Vial IVP SCH (22:30)
[2020-06-24] MEDS: Pilocarpine 1% Ophth Drops 15 ML BOT R EYE SCH ×2 (22:43→23:29)
[2020-06-24] MEDS: Pilocarpine 1% Ophth Drops 15 ML BOT L EYE SCH ×2 (22:43→23:28)
[2020-06-24] MEDS: Furosemide 40 MG/4 ML VIAL SLOW IVP SCH (22:48)
[2020-06-24 23:47] LABS: SARS-CoV-2 PCR by NAA Not Detected (NotDetected)
[2020-06-24] MEDS ORDERED: Prochlorperazine Edisylate 10 MG in Sodium Chloride 0.9% 50 ML IVPB SCH (23:59)
[2020-06-25] MEDS: Acetaminophen 325 MG TAB PO PRN ×2 (00:11→14:01)
[2020-06-25] MEDS: Brimonidine Tartrate 0.2% Ophth Soln 5 ml Bottle R EYE SCH ×4 (00:14→02:19)
[2020-06-25] MEDS: Timolol 0.5% Ophth Soln 5 ml Bottle R EYE SCH ×4 (00:19→02:24)
[2020-06-25] MEDS: Pilocarpine 1% Ophth Drops 15 ML BOT R EYE SCH ×10 (00:59→17:45)
[2020-06-25 07:16] LABS: #Eosinphils 0.1 thou/uL (0.0-0.7); #Lymphocytes 1.4 thou/uL (1.20-3.40); #Monocytes 0.7 thou/uL (0.11-0.59); #Neutrophils 6.2 thou/uL (1.40-6.50); %Basophils 0.4 % (0.0-1.0); %Eosinophils 1.2 % (0.0-10.0); %Lymphocytes 16.3 % (21.0-51.0); %Monocytes 8.4 % (0.0-10.0); %Neutrophils 73.8 % (42.0-75.0); Hemoglobin 10.7 g/dL (12.0-16.0); Mean Corpuscular HGB CONC 30.3 g/dL (32.0-36.0); Mean Corpuscular Volume 75.8 fL (78.0-98.0); Mean Platelet Volume 8.7 fL (7.4-10.4); Platelet Count 324 thou/uL (130-400); Red Blood Cell (RBC) Count 4.68 mill/uL (4.20-5.40); White Blood Cell (WBC) Count 8.4 thou/uL (4.8-10.8)
[2020-06-25 07:29] LABS: Anion Gap 13 mmol/L (10-20); BUN (Urea Nitrogen) 7 mg/dL (9.8-20.1); Calc. Creatinine Clearance 75 mL/min (70-130); Calcium 7.6 mg/dL (7.8-10.44); Carbon Dioxide 23 mmol/L (22-29); Chloride 102 mmol/L (98-107); Glucose 90 mg/dL (70-105); Potassium 3.2 mmol/L (3.5-5.1); Sodium 135 mmol/L (136-145)
[2020-06-25] MEDS ORDERED: HumaLOG 300 UNITS/3 ML VIAL SC PRN (08:01)
[2020-06-25 08:24] LABS: Magnesium 1.7 mg/dL (1.6-2.6); Phosphorus 3.7 mg/dL (2.3-4.7)
[2020-06-25] MEDS ORDERED: acetaZOLAMIDE Sodium 500 mg Vial IVP SCH (08:30)
[2020-06-25] MEDS ORDERED: Brimonidine Tartrate 0.2% Ophth Soln 5 ml Bottle EA EYE SCH (08:30)
[2020-06-25] MEDS ORDERED: Pilocarpine 1% Ophth Drops 15 ML BOT EA EYE SCH (08:30)
[2020-06-25] MEDS ORDERED: Timolol 0.5% Ophth Soln 5 ml Bottle EA EYE SCH (08:30)
[2020-06-25] MEDS: Clopidogrel Bisulfate 75 MG TAB PO SCH (08:38)
[2020-06-25] MEDS: Citalopram 20 MG TAB PO SCH (08:38)
[2020-06-25] MEDS: Saccharomyces boulardii 250 MG CAP PO SCH (08:38)
[2020-06-25] MEDS: Metoprolol Tartrate 25 MG TAB PO SCH (08:38)
[2020-06-25] MEDS: traMADol HCl 50 MG TAB PO PRN ×2 (08:38→14:49)
[2020-06-25] MEDS: metFORMIN 500 MG TAB PO SCH ×2 (08:39→17:04)
[2020-06-25] MEDS: Potassium Chloride 20 MEQ TAB PO SCH ×3 (08:39→17:04)
[2020-06-25] MEDS: Fish Oil 1,000 MG CAP PO SCH (08:39)
[2020-06-25] MEDS: Furosemide 40 MG/4 ML VIAL SLOW IVP SCH ×2 (08:39→21:09)
[2020-06-25] MEDS: Amlodipine 5 MG TAB PO SCH ×2 (08:39→21:09)
[2020-06-25] MEDS: Enoxaparin Sodium 40 MG/0.4 ML SYRINGE SC SCH (08:39)
[2020-06-25] MEDS: Alogliptin 25 MG TAB PO SCH (08:39)
[2020-06-25] MEDS: Gabapentin 100 MG CAP PO SCH ×3 (08:39→21:08)
[2020-06-25] MEDS ORDERED: Electrolyte Replacement Protocol 1 EACH FS SCH (08:45)
[2020-06-25] MEDS ORDERED: Electrolyte Replacement Protocol FS PRN (09:00)
[2020-06-25] MEDS ORDERED: Magnesium 2 GM/50 ML 2 GM in Premix Bag 1 BAG IVPB SCH (09:00)
[2020-06-25] MEDS ORDERED: Potassium Chloride 20 MEQ TAB PO SCH (13:00)
[2020-06-25] MEDS: Pilocarpine 1% Ophth Drops 15 ML BOT L EYE SCH ×2 (13:07→17:45)
[2020-06-25] MEDS: Atorvastatin Calcium 40 MG TAB PO SCH (21:09)
[2020-06-25] MEDS: Mirtazapine 15 MG TAB PO SCH (21:09)
[2020-06-25] MEDS: Timolol 0.5% Ophth Soln 5 ml Bottle EA EYE SCH (21:19)
[2020-06-25] MEDS: Brimonidine Tartrate 0.2% Ophth Soln 5 ml Bottle EA EYE SCH (21:21)
[2020-06-25] MEDS: Pilocarpine 1% Ophth Drops 15 ML BOT EA EYE SCH (23:59)
[2020-06-26] MEDS: Acetaminophen 325 MG TAB PO PRN (02:16)
[2020-06-26 04:14] LABS: #Eosinphils 0.1 thou/uL (0.0-0.7); #Lymphocytes 1.4 thou/uL (1.20-3.40); #Monocytes 0.7 thou/uL (0.11-0.59); #Neutrophils 10.4 thou/uL (1.40-6.50); %Basophils 0.1 % (0.0-1.0); %Eosinophils 0.7 % (0.0-10.0); %Lymphocytes 10.7 % (21.0-51.0); %Monocytes 5.8 % (0.0-10.0); %Neutrophils 82.7 % (42.0-75.0); Hemoglobin 11.5 g/dL (12.0-16.0); Mean Corpuscular HGB CONC 30.1 g/dL (32.0-36.0); Mean Corpuscular Hemoglobin 22.9 pg (27.0-31.0); Mean Corpuscular Volume 75.9 fL (78.0-98.0); Platelet Count 352 thou/uL (130-400); RBC Distribution Width 19.2 % (11.5-14.5); Red Blood Cell (RBC) Count 5.02 mill/uL (4.20-5.40); White Blood Cell (WBC) Count 12.6 thou/uL (4.8-10.8)
[2020-06-26 04:31] LABS: ALT (SGPT) 10 U/L (8-55); AST (SGOT) 14 U/L (5-34); Albumin 2.4 g/dL (3.5-5.0); Alkaline Phosphatase 84 U/L (40-110); Anion Gap 13 mmol/L (10-20); BUN (Urea Nitrogen) 9 mg/dL (9.8-20.1); Bilirubin, Total 0.5 mg/dL (0.2-1.2); Calc. Creatinine Clearance 59 mL/min (70-130); Calcium 7.9 mg/dL (7.8-10.44); Carbon Dioxide 23 mmol/L (22-29); Chloride 103 mmol/L (98-107); Globulin 3.6 g/dL (2.4-3.5); Glucose 91 mg/dL (70-105); Magnesium 2.2 mg/dL (1.6-2.6); Potassium 4.5 mmol/L (3.5-5.1); Sodium 134 mmol/L (136-145)
[2020-06-26] MEDS: Pilocarpine 1% Ophth Drops 15 ML BOT EA EYE SCH ×3 (05:14→17:38)
[2020-06-26] MEDS: Amlodipine 5 MG TAB PO SCH ×2 (08:37→20:34)
[2020-06-26] MEDS: Gabapentin 100 MG CAP PO SCH ×3 (08:38→20:33)
[2020-06-26] MEDS: Saccharomyces boulardii 250 MG CAP PO SCH (08:38)
[2020-06-26] MEDS: Alogliptin 25 MG TAB PO SCH (08:39)
[2020-06-26] MEDS: Potassium Chloride 20 MEQ TAB PO SCH ×2 (08:40→17:35)
[2020-06-26] MEDS: Fish Oil 1,000 MG CAP PO SCH (08:40)
[2020-06-26] MEDS: Clopidogrel Bisulfate 75 MG TAB PO SCH (08:40)
[2020-06-26] MEDS: traMADol HCl 50 MG TAB PO PRN ×2 (08:41→15:30)
[2020-06-26] MEDS: metFORMIN 500 MG TAB PO SCH ×2 (08:41→17:35)
[2020-06-26] MEDS: Metoprolol Tartrate 25 MG TAB PO SCH (08:41)
[2020-06-26] MEDS: Brimonidine Tartrate 0.2% Ophth Soln 5 ml Bottle EA EYE SCH ×2 (08:42→20:35)
[2020-06-26] MEDS: Furosemide 40 MG/4 ML VIAL SLOW IVP SCH ×2 (08:42→20:34)
[2020-06-26] MEDS: Timolol 0.5% Ophth Soln 5 ml Bottle EA EYE SCH (08:43)
[2020-06-26] MEDS: Citalopram 20 MG TAB PO SCH (08:46)
[2020-06-26] MEDS: AcetaZOLAMIDE 250 MG TAB PO SCH ×2 (11:28→17:37)
[2020-06-26] MEDS: Enoxaparin Sodium 40 MG/0.4 ML SYRINGE SC SCH (11:28)
[2020-06-26] MEDS: Atorvastatin Calcium 40 MG TAB PO SCH (20:33)
[2020-06-26] MEDS: Mirtazapine 15 MG TAB PO SCH (20:34)
[2020-06-27] MEDS: Pilocarpine 1% Ophth Drops 15 ML BOT EA EYE SCH ×3 (00:40→11:48)
[2020-06-27] MEDS: AcetaZOLAMIDE 250 MG TAB PO SCH ×4 (00:42→17:21)
[2020-06-27] MEDS: Timolol 0.5% Ophth Soln 5 ml Bottle EA EYE SCH ×3 (00:45→20:06)
[2020-06-27] MEDS: traMADol HCl 50 MG TAB PO PRN (03:34)
[2020-06-27 04:55] LABS: #Eosinphils 0.1 thou/uL (0.0-0.7); #Lymphocytes 2.4 thou/uL (1.20-3.40); #Monocytes 1.4 thou/uL (0.11-0.59); #Neutrophils 9.3 thou/uL (1.40-6.50); %Basophils 0.1 % (0.0-1.0); %Eosinophils 0.6 % (0.0-10.0); %Monocytes 10.7 % (0.0-10.0); %Neutrophils 70.6 % (42.0-75.0); Hemoglobin 12.2 g/dL (12.0-16.0); Mean Corpuscular HGB CONC 30.2 g/dL (32.0-36.0); Mean Corpuscular Volume 76.2 fL (78.0-98.0); Mean Platelet Volume 9.4 fL (7.4-10.4); Platelet Count 381 thou/uL (130-400); RBC Distribution Width 19.8 % (11.5-14.5); Red Blood Cell (RBC) Count 5.31 mill/uL (4.20-5.40); White Blood Cell (WBC) Count 13.2 thou/uL (4.8-10.8)
[2020-06-27 05:04] LABS: ALT (SGPT) 8 U/L (8-55); AST (SGOT) 11 U/L (5-34); Albumin 2.7 g/dL (3.5-5.0); Alkaline Phosphatase 88 U/L (40-110); Anion Gap 17 mmol/L (10-20); BUN (Urea Nitrogen) 14 mg/dL (9.8-20.1); Bilirubin, Total 0.5 mg/dL (0.2-1.2); Calc. Creatinine Clearance 46 mL/min (70-130); Calcium 8.2 mg/dL (7.8-10.44); Carbon Dioxide 20 mmol/L (22-29); Chloride 106 mmol/L (98-107); Globulin 3.8 g/dL (2.4-3.5); Glucose 71 mg/dL (70-105); Potassium 4.7 mmol/L (3.5-5.1); Protein, Total 6.5 g/dL (6.0-8.3); Sodium 138 mmol/L (136-145)
[2020-06-27] MEDS: Enoxaparin Sodium 40 MG/0.4 ML SYRINGE SC SCH (08:40)
[2020-06-27] MEDS: Gabapentin 100 MG CAP PO SCH ×2 (08:41→15:42)
[2020-06-27] MEDS: Clopidogrel Bisulfate 75 MG TAB PO SCH (08:41)
[2020-06-27] MEDS: Metoprolol Tartrate 25 MG TAB PO SCH (08:42)
[2020-06-27] MEDS: metFORMIN 500 MG TAB PO SCH ×2 (08:42→17:21)
[2020-06-27] MEDS: Potassium Chloride 20 MEQ TAB PO SCH ×2 (08:42→17:21)
[2020-06-27] MEDS: Alogliptin 25 MG TAB PO SCH (08:42)
[2020-06-27] MEDS: Amlodipine 5 MG TAB PO SCH ×2 (08:42→20:04)
[2020-06-27] MEDS: Citalopram 20 MG TAB PO SCH (08:42)
[2020-06-27] MEDS: Fish Oil 1,000 MG CAP PO SCH (08:42)
[2020-06-27] MEDS: Brimonidine Tartrate 0.2% Ophth Soln 5 ml Bottle EA EYE SCH ×2 (08:43→20:04)
[2020-06-27] MEDS: Furosemide 40 MG/4 ML VIAL SLOW IVP SCH ×2 (08:43→20:08)
[2020-06-27] MEDS: Saccharomyces boulardii 250 MG CAP PO SCH (08:43)
[2020-06-27] MEDS: Atorvastatin Calcium 40 MG TAB PO SCH (20:04)
[2020-06-27] MEDS: Acetaminophen 325 MG TAB PO PRN (20:14)
[2020-06-28] MEDS: AcetaZOLAMIDE 250 MG TAB PO SCH ×2 (00:25→05:16)
[2020-06-28] MEDS: Acetaminophen 325 MG TAB PO PRN ×2 (00:25→05:16)
[2020-06-28 00:43] LABS: Bilirubin Negative (Negative); Blood, Urine Trace (Negative); Clarity Turbid (Clear); Glucose, Urine (Dipstick) Normal (Negative); Ketone, Urine Negative (Negative); Leukocyte Negative Leu/uL (Negative); Nitrite Negative (Negative); Protein, Urine (Dipstick) 200 mg/dL (Neg-Trace); RBC/HPF 0-3 HPF (0-3); Specific Gravity, Urine 1.012 (1.002-1.036); Squamous Epithelial 0-3 HPF (0-3); Urobilinogen Normal mg/dL (Less than 2); WBC/HPF 0-3 HPF (0-3)
[2020-06-28 00:57] LABS: Bacteria/HPF 1+ HPF (None Seen)
[2020-06-28 05:10] LABS: Anion Gap 17 mmol/L (10-20); BUN (Urea Nitrogen) 19 mg/dL (9.8-20.1); Calc. Creatinine Clearance 42 mL/min (70-130); Calcium 7.9 mg/dL (7.8-10.44); Carbon Dioxide 18 mmol/L (22-29); Chloride 107 mmol/L (98-107); Glucose 65 mg/dL (70-105); Potassium 4.9 mmol/L (3.5-5.1); Sodium 137 mmol/L (136-145)
[2020-06-28 05:37] LABS: #Eosinphils 0.1 thou/uL (0.0-0.7); #Lymphocytes 1.8 thou/uL (1.20-3.40); #Monocytes 1.3 thou/uL (0.11-0.59); #Neutrophils 9.1 thou/uL (1.40-6.50); %Basophils 0.2 % (0.0-1.0); %Eosinophils 0.6 % (0.0-10.0); %Lymphocytes 14.9 % (21.0-51.0); %Monocytes 10.5 % (0.0-10.0); %Neutrophils 73.8 % (42.0-75.0); Anisocytosis SLIGHT = 6-15 cells (100X) (0-5/hpf); Hemoglobin 11.5 g/dL (12.0-16.0); MDiff Complete? YES; Mean Corpuscular Hemoglobin 22.7 pg (27.0-31.0); Mean Corpuscular Volume 75.7 fL (78.0-98.0); Mean Platelet Volume 9.9 fL (7.4-10.4); Platelet Count 335 thou/uL (130-400); Platelet Morphology Comment Appears Adequate; RBC Distribution Width 19.5 % (11.5-14.5); Red Blood Cell (RBC) Count 5.08 mill/uL (4.20-5.40); White Blood Cell (WBC) Count 12.3 thou/uL (4.8-10.8)
[2020-06-28] MEDS: Enoxaparin Sodium 40 MG/0.4 ML SYRINGE SC SCH (08:52)
[2020-06-28] MEDS: Alogliptin 25 MG TAB PO SCH (08:52)
[2020-06-28] MEDS: Potassium Chloride 20 MEQ TAB PO SCH ×2 (08:53→16:50)
[2020-06-28] MEDS: Saccharomyces boulardii 250 MG CAP PO SCH (08:53)
[2020-06-28] MEDS: Metoprolol Tartrate 25 MG TAB PO SCH (08:53)
[2020-06-28] MEDS: Clopidogrel Bisulfate 75 MG TAB PO SCH (08:53)
[2020-06-28] MEDS: Fish Oil 1,000 MG CAP PO SCH (08:53)
[2020-06-28] MEDS: metFORMIN 500 MG TAB PO SCH ×2 (08:53→16:50)
[2020-06-28] MEDS: Citalopram 20 MG TAB PO SCH (08:53)
[2020-06-28] MEDS: Amlodipine 5 MG TAB PO SCH ×2 (08:54→20:30)
[2020-06-28] MEDS: Furosemide 40 MG/4 ML VIAL SLOW IVP SCH ×2 (08:54→20:30)
[2020-06-28] MEDS: Timolol 0.5% Ophth Soln 5 ml Bottle EA EYE SCH ×2 (08:55→20:31)
[2020-06-28] MEDS: Brimonidine Tartrate 0.2% Ophth Soln 5 ml Bottle EA EYE SCH ×2 (08:55→20:31)
[2020-06-28] MEDS: Atorvastatin Calcium 40 MG TAB PO SCH (20:30)
[2020-06-29 04:30] LABS: Anion Gap 19 mmol/L (10-20); BUN (Urea Nitrogen) 23 mg/dL (9.8-20.1); Calc. Creatinine Clearance 41 mL/min (70-130); Calcium 7.9 mg/dL (7.8-10.44); Carbon Dioxide 16 mmol/L (22-29); Chloride 107 mmol/L (98-107); Glucose 143 mg/dL (70-105); Potassium 4.7 mmol/L (3.5-5.1); Sodium 137 mmol/L (136-145)
[2020-06-29 04:37] LABS: #Basophils 0.1 thou/uL (0.0-0.2); #Lymphocytes 1.6 thou/uL (1.20-3.40); #Monocytes 1.1 thou/uL (0.11-0.59); #Neutrophils 10.5 thou/uL (1.40-6.50); %Basophils 0.6 % (0.0-1.0); %Eosinophils 0.2 % (0.0-10.0); %Lymphocytes 11.8 % (21.0-51.0); %Monocytes 8.4 % (0.0-10.0); Hemoglobin 11.5 g/dL (12.0-16.0); Mean Corpuscular HGB CONC 29.9 g/dL (32.0-36.0); Mean Corpuscular Hemoglobin 23.1 pg (27.0-31.0); Mean Corpuscular Volume 77.1 fL (78.0-98.0); Mean Platelet Volume 9.1 fL (7.4-10.4); Platelet Count 338 thou/uL (130-400); RBC Distribution Width 19.6 % (11.5-14.5); Red Blood Cell (RBC) Count 4.99 mill/uL (4.20-5.40); White Blood Cell (WBC) Count 13.3 thou/uL (4.8-10.8)
[2020-06-29] MEDS: Furosemide 40 MG/4 ML VIAL SLOW IVP SCH ×2 (09:16→21:13)
[2020-06-29] MEDS: Enoxaparin Sodium 40 MG/0.4 ML SYRINGE SC SCH (09:16)
[2020-06-29] MEDS: Potassium Chloride 20 MEQ TAB PO SCH ×2 (09:17→19:05)
[2020-06-29] MEDS: metFORMIN 500 MG TAB PO SCH ×2 (09:17→19:05)
[2020-06-29] MEDS: Acetaminophen 325 MG TAB PO PRN ×2 (09:17→21:17)
[2020-06-29] MEDS: Fish Oil 1,000 MG CAP PO SCH (09:17)
[2020-06-29] MEDS: Amlodipine 5 MG TAB PO SCH ×2 (09:20→21:13)
[2020-06-29] MEDS: Citalopram 20 MG TAB PO SCH (09:20)
[2020-06-29] MEDS: Saccharomyces boulardii 250 MG CAP PO SCH (09:20)
[2020-06-29] MEDS: Metoprolol Tartrate 25 MG TAB PO SCH (09:20)
[2020-06-29] MEDS: Alogliptin 25 MG TAB PO SCH (09:22)
[2020-06-29] MEDS: Clopidogrel Bisulfate 75 MG TAB PO SCH (09:23)
[2020-06-29] MEDS: Timolol 0.5% Ophth Soln 5 ml Bottle EA EYE SCH ×2 (09:36→09:42)
[2020-06-29] MEDS: Brimonidine Tartrate 0.2% Ophth Soln 5 ml Bottle EA EYE SCH (09:39)
[2020-06-29] MEDS: HumaLOG 300 UNITS/3 ML VIAL SC PRN (12:39)
[2020-06-29] MEDS: Ketorolac Tromethamine 30 MG/ML VIAL IVP PRN (12:46)
[2020-06-29] MEDS: Atorvastatin Calcium 40 MG TAB PO SCH (21:13)
[2020-06-29] MEDS: Brimonidine Tartrate 0.2% Ophth Soln 5 ml Bottle R EYE SCH (21:14)
[2020-06-29] MEDS: Timolol 0.5% Ophth Soln 5 ml Bottle R EYE SCH (21:14)
[2020-06-30] MEDS: Pilocarpine 1% Ophth Drops 15 ML BOT R EYE SCH ×4 (00:33→17:32)
[2020-06-30 04:58] LABS: Anion Gap 15 mmol/L (10-20); BUN (Urea Nitrogen) 23 mg/dL (9.8-20.1); Calc. Creatinine Clearance 48 mL/min (70-130); Calcium 7.8 mg/dL (7.8-10.44); Carbon Dioxide 18 mmol/L (22-29); Chloride 107 mmol/L (98-107); Glucose 112 mg/dL (70-105); Potassium 4.2 mmol/L (3.5-5.1); Sodium 136 mmol/L (136-145)
[2020-06-30] MEDS: Ketorolac Tromethamine 30 MG/ML VIAL IVP PRN ×3 (05:19→20:47)
[2020-06-30 06:59] LABS: #Eosinphils 0.1 thou/uL (0.0-0.7); #Lymphocytes 1.5 thou/uL (1.20-3.40); %Basophils 0.4 % (0.0-1.0); %Eosinophils 0.7 % (0.0-10.0); %Lymphocytes 14.1 % (21.0-51.0); %Neutrophils 75.8 % (42.0-75.0); Anisocytosis SLIGHT = 6-15 cells (100X) (0-5/hpf); Hemoglobin 10.9 g/dL (12.0-16.0); MDiff Complete? YES; Mean Corpuscular HGB CONC 30.2 g/dL (32.0-36.0); Mean Corpuscular Hemoglobin 22.4 pg (27.0-31.0); Mean Corpuscular Volume 74.3 fL (78.0-98.0); Mean Platelet Volume 10.1 fL (7.4-10.4); Platelet Count 335 thou/uL (130-400); RBC Distribution Width 19.4 % (11.5-14.5); Red Blood Cell (RBC) Count 4.87 mill/uL (4.20-5.40); White Blood Cell (WBC) Count 10.6 thou/uL (4.8-10.8)
[2020-06-30] MEDS: Fish Oil 1,000 MG CAP PO SCH (09:01)
[2020-06-30] MEDS: Amlodipine 5 MG TAB PO SCH ×2 (09:01→20:48)
[2020-06-30] MEDS: Furosemide 40 MG/4 ML VIAL SLOW IVP SCH ×2 (09:01→20:47)
[2020-06-30] MEDS: Citalopram 20 MG TAB PO SCH (09:01)
[2020-06-30] MEDS: Alogliptin 25 MG TAB PO SCH (09:02)
[2020-06-30] MEDS: Saccharomyces boulardii 250 MG CAP PO SCH (09:02)
[2020-06-30] MEDS: Potassium Chloride 20 MEQ TAB PO SCH ×2 (09:02→17:31)
[2020-06-30] MEDS: metFORMIN 500 MG TAB PO SCH ×2 (09:02→17:31)
[2020-06-30] MEDS: Timolol 0.5% Ophth Soln 5 ml Bottle R EYE SCH ×2 (09:03→20:48)
[2020-06-30] MEDS: Clopidogrel Bisulfate 75 MG TAB PO SCH (09:03)
[2020-06-30] MEDS: Enoxaparin Sodium 40 MG/0.4 ML SYRINGE SC SCH (09:03)
[2020-06-30] MEDS: Metoprolol Tartrate 25 MG TAB PO SCH (09:03)
[2020-06-30] MEDS: Brimonidine Tartrate 0.2% Ophth Soln 5 ml Bottle R EYE SCH ×2 (09:04→20:48)
[2020-06-30] MEDS: Acetaminophen 325 MG TAB PO PRN (17:30)
[2020-06-30] MEDS: Atorvastatin Calcium 40 MG TAB PO SCH (20:48)
[2020-07-01] MEDS: Pilocarpine 1% Ophth Drops 15 ML BOT R EYE SCH ×5 (01:09→23:46)
[2020-07-01 04:41] LABS: #Eosinphils 0.1 thou/uL (0.0-0.7); #Lymphocytes 1.9 thou/uL (1.20-3.40); #Monocytes 1.2 thou/uL (0.11-0.59); #Neutrophils 6.1 thou/uL (1.40-6.50); %Basophils 0.4 % (0.0-1.0); %Eosinophils 1.1 % (0.0-10.0); %Lymphocytes 20.6 % (21.0-51.0); %Monocytes 12.4 % (0.0-10.0); %Neutrophils 65.6 % (42.0-75.0); Hemoglobin 11.4 g/dL (12.0-16.0); Mean Corpuscular HGB CONC 30.6 g/dL (32.0-36.0); Mean Corpuscular Hemoglobin 22.9 pg (27.0-31.0); Mean Platelet Volume 9.4 fL (7.4-10.4); Platelet Count 320 thou/uL (130-400); RBC Distribution Width 19.5 % (11.5-14.5); Red Blood Cell (RBC) Count 4.96 mill/uL (4.20-5.40); White Blood Cell (WBC) Count 9.3 thou/uL (4.8-10.8)
[2020-07-01 05:02] LABS: Anion Gap 13 mmol/L (10-20); BUN (Urea Nitrogen) 33 mg/dL (9.8-20.1); Calc. Creatinine Clearance 54 mL/min (70-130); Calcium 7.8 mg/dL (7.8-10.44); Carbon Dioxide 19 mmol/L (22-29); Chloride 107 mmol/L (98-107); Glucose 95 mg/dL (70-105); Potassium 4.2 mmol/L (3.5-5.1); Sodium 135 mmol/L (136-145)
[2020-07-01] MEDS: Citalopram 20 MG TAB PO SCH (08:02)
[2020-07-01] MEDS: metFORMIN 500 MG TAB PO SCH ×2 (08:02→17:02)
[2020-07-01] MEDS: Enoxaparin Sodium 40 MG/0.4 ML SYRINGE SC SCH (08:02)
[2020-07-01] MEDS: Amlodipine 5 MG TAB PO SCH ×2 (08:02→20:36)
[2020-07-01] MEDS: Fish Oil 1,000 MG CAP PO SCH (08:03)
[2020-07-01] MEDS: Potassium Chloride 20 MEQ TAB PO SCH ×2 (08:03→17:01)
[2020-07-01] MEDS: Saccharomyces boulardii 250 MG CAP PO SCH (08:03)
[2020-07-01] MEDS: Metoprolol Tartrate 25 MG TAB PO SCH (08:04)
[2020-07-01] MEDS: Alogliptin 25 MG TAB PO SCH (08:04)
[2020-07-01] MEDS: Acetaminophen 325 MG TAB PO PRN (08:04)
[2020-07-01] MEDS: Furosemide 40 MG/4 ML VIAL SLOW IVP SCH ×2 (08:04→20:35)
[2020-07-01] MEDS: Brimonidine Tartrate 0.2% Ophth Soln 5 ml Bottle R EYE SCH ×2 (08:04→20:36)
[2020-07-01] MEDS: Clopidogrel Bisulfate 75 MG TAB PO SCH (08:04)
[2020-07-01] MEDS: Timolol 0.5% Ophth Soln 5 ml Bottle R EYE SCH ×2 (08:05→20:36)
[2020-07-01] MEDS: Ketorolac Tromethamine 30 MG/ML VIAL IVP PRN ×2 (09:30→20:34)
[2020-07-01] MEDS: traMADol HCl 50 MG TAB PO PRN (17:01)
[2020-07-01] MEDS: Atorvastatin Calcium 40 MG TAB PO SCH (20:35)
[2020-07-02] MEDS: traMADol HCl 50 MG TAB PO PRN ×3 (03:20→22:38)
[2020-07-02 04:54] LABS: #Eosinphils 0.3 thou/uL (0.0-0.7); #Lymphocytes 1.6 thou/uL (1.20-3.40); #Monocytes 0.9 thou/uL (0.11-0.59); #Neutrophils 4.6 thou/uL (1.40-6.50); %Basophils 0.2 % (0.0-1.0); %Eosinophils 3.5 % (0.0-10.0); %Monocytes 11.5 % (0.0-10.0); %Neutrophils 62.9 % (42.0-75.0); Hemoglobin 11.3 g/dL (12.0-16.0); Mean Corpuscular HGB CONC 30.6 g/dL (32.0-36.0); Mean Corpuscular Hemoglobin 22.9 pg (27.0-31.0); Mean Corpuscular Volume 74.8 fL (78.0-98.0); Mean Platelet Volume 9.6 fL (7.4-10.4); Platelet Count 325 thou/uL (130-400); RBC Distribution Width 19.4 % (11.5-14.5); Red Blood Cell (RBC) Count 4.93 mill/uL (4.20-5.40); White Blood Cell (WBC) Count 7.4 thou/uL (4.8-10.8)
[2020-07-02 05:21] LABS: Anion Gap 12 mmol/L (10-20); BUN (Urea Nitrogen) 27 mg/dL (9.8-20.1); Calc. Creatinine Clearance 53 mL/min (70-130); Calcium 8.1 mg/dL (7.8-10.44); Carbon Dioxide 25 mmol/L (22-29); Chloride 104 mmol/L (98-107); Glucose 112 mg/dL (70-105); Potassium 4.1 mmol/L (3.5-5.1); Sodium 137 mmol/L (136-145)
[2020-07-02] MEDS: HumaLOG 300 UNITS/3 ML VIAL SC PRN (06:35)
[2020-07-02] MEDS: Pilocarpine 1% Ophth Drops 15 ML BOT R EYE SCH ×4 (06:36→20:05)
[2020-07-02] MEDS: Metoprolol Tartrate 25 MG TAB PO SCH (08:30)
[2020-07-02] MEDS: Enoxaparin Sodium 40 MG/0.4 ML SYRINGE SC SCH (08:30)
[2020-07-02] MEDS: Clopidogrel Bisulfate 75 MG TAB PO SCH (08:30)
[2020-07-02] MEDS: Furosemide 40 MG/4 ML VIAL SLOW IVP SCH ×2 (08:30→20:04)
[2020-07-02] MEDS: Alogliptin 25 MG TAB PO SCH (08:30)
[2020-07-02] MEDS: Citalopram 20 MG TAB PO SCH (08:30)
[2020-07-02] MEDS: Amlodipine 5 MG TAB PO SCH ×2 (08:30→20:04)
[2020-07-02] MEDS: Fish Oil 1,000 MG CAP PO SCH (08:30)
[2020-07-02] MEDS: Potassium Chloride 20 MEQ TAB PO SCH ×2 (08:31→16:08)
[2020-07-02] MEDS: Saccharomyces boulardii 250 MG CAP PO SCH (08:31)
[2020-07-02] MEDS: Timolol 0.5% Ophth Soln 5 ml Bottle R EYE SCH ×2 (08:32→20:05)
[2020-07-02] MEDS: Brimonidine Tartrate 0.2% Ophth Soln 5 ml Bottle R EYE SCH ×2 (08:32→20:05)
[2020-07-02] MEDS: metFORMIN 500 MG TAB PO SCH ×2 (08:33→16:08)
[2020-07-02] MEDS ORDERED: Proparacaine 0.5% Opth 15 ML BOT ONE (11:55)
[2020-07-02] MEDS: Ketorolac Tromethamine 30 MG/ML VIAL IVP PRN (13:57)
[2020-07-02] MEDS: Gabapentin 300 MG CAP PO SCH (20:04)
[2020-07-02] MEDS: Atorvastatin Calcium 40 MG TAB PO SCH (20:04)
[2020-07-03] MEDS: Pilocarpine 1% Ophth Drops 15 ML BOT R EYE SCH (05:38)
[2020-07-03] MEDS: Furosemide 40 MG/4 ML VIAL SLOW IVP SCH ×3 (08:30→20:14)
[2020-07-03] MEDS: traMADol HCl 50 MG TAB PO PRN ×3 (08:30→23:03)
[2020-07-03] MEDS: Saccharomyces boulardii 250 MG CAP PO SCH (08:31)
[2020-07-03] MEDS: Potassium Chloride 20 MEQ TAB PO SCH ×2 (08:31→16:57)
[2020-07-03] MEDS: Clopidogrel Bisulfate 75 MG TAB PO SCH (08:31)
[2020-07-03] MEDS: Metoprolol Tartrate 25 MG TAB PO SCH (08:31)
[2020-07-03] MEDS: Alogliptin 25 MG TAB PO SCH (08:31)
[2020-07-03] MEDS: metFORMIN 500 MG TAB PO SCH ×2 (08:31→16:57)
[2020-07-03] MEDS: Fish Oil 1,000 MG CAP PO SCH (08:31)
[2020-07-03] MEDS: Gabapentin 300 MG CAP PO SCH ×2 (08:32→20:12)
[2020-07-03] MEDS: Amlodipine 5 MG TAB PO SCH ×2 (08:32→20:13)
[2020-07-03] MEDS: Enoxaparin Sodium 40 MG/0.4 ML SYRINGE SC SCH (08:32)
[2020-07-03] MEDS: Citalopram 20 MG TAB PO SCH (08:32)
[2020-07-03] MEDS: Brimonidine Tartrate 0.2% Ophth Soln 5 ml Bottle R EYE SCH ×2 (08:36→20:14)
[2020-07-03] MEDS: Timolol 0.5% Ophth Soln 5 ml Bottle R EYE SCH ×2 (09:26→20:15)
[2020-07-03] MEDS: HumaLOG 300 UNITS/3 ML VIAL SC PRN (11:55)
[2020-07-03] MEDS: AcetaZOLAMIDE 250 MG TAB PO SCH ×3 (11:55→23:03)
[2020-07-03] MEDS: Atorvastatin Calcium 40 MG TAB PO SCH (20:12)
[2020-07-04] MEDS: AcetaZOLAMIDE 250 MG TAB PO SCH (05:03)
[2020-07-04] MEDS: traMADol HCl 50 MG TAB PO PRN ×3 (07:51→20:54)
[2020-07-04] MEDS: Enoxaparin Sodium 40 MG/0.4 ML SYRINGE SC SCH (09:34)
[2020-07-04] MEDS: Clopidogrel Bisulfate 75 MG TAB PO SCH (09:34)
[2020-07-04] MEDS: Amlodipine 5 MG TAB PO SCH ×2 (09:35→20:54)
[2020-07-04] MEDS: Metoprolol Tartrate 25 MG TAB PO SCH (09:35)
[2020-07-04] MEDS: Saccharomyces boulardii 250 MG CAP PO SCH (09:35)
[2020-07-04] MEDS: Gabapentin 300 MG CAP PO SCH ×2 (09:36→20:53)
[2020-07-04] MEDS: Fish Oil 1,000 MG CAP PO SCH (09:36)
[2020-07-04] MEDS: Citalopram 20 MG TAB PO SCH (09:37)
[2020-07-04] MEDS: Potassium Chloride 20 MEQ TAB PO SCH ×2 (09:37→16:38)
[2020-07-04] MEDS: Alogliptin 25 MG TAB PO SCH (09:37)
[2020-07-04] MEDS: metFORMIN 500 MG TAB PO SCH ×2 (09:38→16:38)
[2020-07-04] MEDS: Furosemide 40 MG/4 ML VIAL SLOW IVP SCH ×2 (09:38→20:56)
[2020-07-04] MEDS: Brimonidine Tartrate 0.2% Ophth Soln 5 ml Bottle R EYE SCH ×2 (09:39→20:58)
[2020-07-04] MEDS: Timolol 0.5% Ophth Soln 5 ml Bottle R EYE SCH ×2 (09:40→20:57)
[2020-07-04] MEDS: Atorvastatin Calcium 40 MG TAB PO SCH (20:54)
[2020-07-05] MEDS: Acetaminophen 325 MG TAB PO PRN ×2 (00:08→15:08)
[2020-07-05] MEDS: traMADol HCl 50 MG TAB PO PRN ×4 (03:29→21:19)
[2020-07-05] MEDS: Potassium Chloride 20 MEQ TAB PO SCH ×2 (09:38→15:57)
[2020-07-05] MEDS: Enoxaparin Sodium 40 MG/0.4 ML SYRINGE SC SCH (09:38)
[2020-07-05] MEDS: Furosemide 40 MG/4 ML VIAL SLOW IVP SCH ×2 (09:38→20:47)
[2020-07-05] MEDS: Alogliptin 25 MG TAB PO SCH (09:38)
[2020-07-05] MEDS: Metoprolol Tartrate 25 MG TAB PO SCH (09:38)
[2020-07-05] MEDS: Gabapentin 300 MG CAP PO SCH ×2 (09:38→20:46)
[2020-07-05] MEDS: Citalopram 20 MG TAB PO SCH (09:39)
[2020-07-05] MEDS: Clopidogrel Bisulfate 75 MG TAB PO SCH (09:39)
[2020-07-05] MEDS: Amlodipine 5 MG TAB PO SCH ×2 (09:39→20:46)
[2020-07-05] MEDS: Fish Oil 1,000 MG CAP PO SCH (09:39)
[2020-07-05] MEDS: Saccharomyces boulardii 250 MG CAP PO SCH (09:39)
[2020-07-05] MEDS: metFORMIN 500 MG TAB PO SCH ×2 (09:39→15:57)
[2020-07-05] MEDS: Timolol 0.5% Ophth Soln 5 ml Bottle R EYE SCH ×2 (09:40→20:47)
[2020-07-05] MEDS: Brimonidine Tartrate 0.2% Ophth Soln 5 ml Bottle R EYE SCH ×2 (09:40→20:47)
[2020-07-05] MEDS: Atorvastatin Calcium 40 MG TAB PO SCH (20:46)
[2020-07-06] MEDS: Acetaminophen 325 MG TAB PO PRN ×4 (00:58→23:48)
[2020-07-06] MEDS: traMADol HCl 50 MG TAB PO PRN ×4 (03:55→20:53)
[2020-07-06] MEDS: Furosemide 40 MG/4 ML VIAL SLOW IVP SCH ×2 (08:23→20:53)
[2020-07-06] MEDS: Metoprolol Tartrate 25 MG TAB PO SCH (08:24)
[2020-07-06] MEDS: Fish Oil 1,000 MG CAP PO SCH (08:24)
[2020-07-06] MEDS: Gabapentin 300 MG CAP PO SCH ×2 (08:24→20:53)
[2020-07-06] MEDS: metFORMIN 500 MG TAB PO SCH ×2 (08:24→16:07)
[2020-07-06] MEDS: Potassium Chloride 20 MEQ TAB PO SCH ×2 (08:24→16:07)
[2020-07-06] MEDS: Enoxaparin Sodium 40 MG/0.4 ML SYRINGE SC SCH (08:24)
[2020-07-06] MEDS: Saccharomyces boulardii 250 MG CAP PO SCH (08:24)
[2020-07-06] MEDS: Citalopram 20 MG TAB PO SCH (08:24)
[2020-07-06] MEDS: Clopidogrel Bisulfate 75 MG TAB PO SCH (08:24)
[2020-07-06] MEDS: Alogliptin 25 MG TAB PO SCH (08:25)
[2020-07-06] MEDS: Amlodipine 5 MG TAB PO SCH ×2 (08:25→20:55)
[2020-07-06] MEDS: Timolol 0.5% Ophth Soln 5 ml Bottle R EYE SCH ×2 (08:25→20:54)
[2020-07-06] MEDS: Brimonidine Tartrate 0.2% Ophth Soln 5 ml Bottle R EYE SCH ×2 (08:25→20:54)
[2020-07-06] MEDS: Atorvastatin Calcium 40 MG TAB PO SCH (20:54)
[2020-07-07] MEDS: traMADol HCl 50 MG TAB PO PRN ×4 (02:07→20:45)
[2020-07-07 05:03] LABS: #Basophils 0.1 thou/uL (0.0-0.2); #Eosinphils 0.2 thou/uL (0.0-0.7); #Lymphocytes 1.9 thou/uL (1.20-3.40); #Monocytes 1.1 thou/uL (0.11-0.59); #Neutrophils 5.3 thou/uL (1.40-6.50); %Basophils 0.9 % (0.0-1.0); %Eosinophils 1.8 % (0.0-10.0); %Lymphocytes 21.9 % (21.0-51.0); %Monocytes 13.2 % (0.0-10.0); %Neutrophils 62.2 % (42.0-75.0); Hemoglobin 10.9 g/dL (12.0-16.0); Mean Corpuscular HGB CONC 29.4 g/dL (32.0-36.0); Mean Corpuscular Hemoglobin 21.9 pg (27.0-31.0); Mean Corpuscular Volume 74.4 fL (78.0-98.0); Mean Platelet Volume 10.1 fL (7.4-10.4); Platelet Count 364 thou/uL (130-400); RBC Distribution Width 20.2 % (11.5-14.5); Red Blood Cell (RBC) Count 4.99 mill/uL (4.20-5.40); White Blood Cell (WBC) Count 8.5 thou/uL (4.8-10.8)
[2020-07-07 05:27] LABS: Anion Gap 15 mmol/L (10-20); BUN (Urea Nitrogen) 26 mg/dL (9.8-20.1); Calc. Creatinine Clearance 44 mL/min (70-130); Calcium 7.9 mg/dL (7.8-10.44); Carbon Dioxide 17 mmol/L (22-29); Chloride 102 mmol/L (98-107); Glucose 64 mg/dL (70-105); Potassium 4.6 mmol/L (3.5-5.1); Sodium 129 mmol/L (136-145)
[2020-07-07] MEDS: Enoxaparin Sodium 40 MG/0.4 ML SYRINGE SC SCH (08:45)
[2020-07-07] MEDS: Furosemide 40 MG/4 ML VIAL SLOW IVP SCH (08:46)
[2020-07-07] MEDS: Gabapentin 300 MG CAP PO SCH ×2 (08:46→20:46)
[2020-07-07] MEDS: Amlodipine 5 MG TAB PO SCH ×2 (08:46→20:46)
[2020-07-07] MEDS: metFORMIN 500 MG TAB PO SCH ×2 (08:46→16:29)
[2020-07-07] MEDS: Alogliptin 25 MG TAB PO SCH (08:46)
[2020-07-07] MEDS: Clopidogrel Bisulfate 75 MG TAB PO SCH (08:46)
[2020-07-07] MEDS: Metoprolol Tartrate 25 MG TAB PO SCH (08:46)
[2020-07-07] MEDS: Saccharomyces boulardii 250 MG CAP PO SCH (08:46)
[2020-07-07] MEDS: Citalopram 20 MG TAB PO SCH (08:47)
[2020-07-07] MEDS: Potassium Chloride 20 MEQ TAB PO SCH (08:47)
[2020-07-07] MEDS: Brimonidine Tartrate 0.2% Ophth Soln 5 ml Bottle R EYE SCH ×2 (08:47→20:47)
[2020-07-07] MEDS: Fish Oil 1,000 MG CAP PO SCH (08:47)
[2020-07-07] MEDS: Timolol 0.5% Ophth Soln 5 ml Bottle R EYE SCH ×2 (08:47→20:46)
[2020-07-07] MEDS: Acetaminophen 325 MG TAB PO PRN ×2 (14:14→23:58)
[2020-07-07] MEDS: Atorvastatin Calcium 40 MG TAB PO SCH (20:45)
[2020-07-07] MEDS: AcetaZOLAMIDE 250 MG TAB PO SCH (20:46)
[2020-07-08] MEDS: traMADol HCl 50 MG TAB PO PRN ×2 (04:29→10:06)
[2020-07-08] MEDS: Saccharomyces boulardii 250 MG CAP PO SCH (09:33)
[2020-07-08] MEDS: Citalopram 20 MG TAB PO SCH (09:34)
[2020-07-08] MEDS: Clopidogrel Bisulfate 75 MG TAB PO SCH (09:34)
[2020-07-08] MEDS: Fish Oil 1,000 MG CAP PO SCH (09:34)
[2020-07-08] MEDS: Metoprolol Tartrate 25 MG TAB PO SCH (09:34)
[2020-07-08] MEDS: Gabapentin 300 MG CAP PO SCH (09:34)
[2020-07-08] MEDS: AcetaZOLAMIDE 250 MG TAB PO SCH (09:35)
[2020-07-08] MEDS: Amlodipine 5 MG TAB PO SCH (09:36)
[2020-07-08] MEDS: metFORMIN 500 MG TAB PO SCH ×2 (09:36→17:10)
[2020-07-08] MEDS: Brimonidine Tartrate 0.2% Ophth Soln 5 ml Bottle R EYE SCH (09:37)
[2020-07-08] MEDS: Enoxaparin Sodium 40 MG/0.4 ML SYRINGE SC SCH (09:37)
[2020-07-08] MEDS: Timolol 0.5% Ophth Soln 5 ml Bottle R EYE SCH (09:38)
[2020-07-08 09:55] LABS: Anion Gap 14 mmol/L (10-20); BUN (Urea Nitrogen) 25 mg/dL (9.8-20.1); Calc. Creatinine Clearance 47 mL/min (70-130); Carbon Dioxide 20 mmol/L (22-29); Chloride 102 mmol/L (98-107); Potassium 4.2 mmol/L (3.5-5.1); Sodium 132 mmol/L (136-145)
[2020-07-08 09:56] LABS: Calcium 8.4 mg/dL (7.8-10.44); Glucose 80 mg/dL (70-105)
[2020-07-08] MEDS: Alogliptin 25 MG TAB PO SCH (10:06)
[2020-07-08 13:38] VITALS: BMI 23.5
[2020-07-08] MEDS: Acetaminophen 325 MG TAB PO PRN (13:42)
[2020-07-08 20:19] VITALS: BP 142/68; TEMP 97.7
== END 2020-07-08 20:20 | disposition swing bed (61) | DRG 987 ==
LOC: ERS 12:14 → ERHOLD 14:10 → 2NO 21:43 → ERHOLD 07-03 03:14 → 2NO 07-03 03:15
PROVIDERS: ADMIT Internal Medicine; ATTEND Internal Medicine
PROC: 085K3ZZ Destruction of Left Lens, Percutaneous Approach (ICD-10-PCS; principal; 2020-06-29)
PROC: 085J3ZZ Destruction of Right Lens, Percutaneous Approach (ICD-10-PCS; 2020-06-29)
PROC: 085K3ZZ Destruction of Left Lens, Percutaneous Approach (ICD-10-PCS; 2020-07-02)
PROC: 085J3ZZ Destruction of Right Lens, Percutaneous Approach (ICD-10-PCS; 2020-07-02)
DX: I11.0 Hypertensive heart disease with heart failure (principal); J96.01 Acute respiratory failure with hypoxia; S72.145A Nondisplaced intertrochanteric fracture of left femur, initial encounter for closed fracture; H40.211 Acute angle-closure glaucoma, right eye; E87.1 Hypo-osmolality and hyponatremia; L97.929 Non-pressure chronic ulcer of unspecified part of left lower leg with unspecified severity; H59.311 Postprocedural hemorrhage of right eye and adnexa following an ophthalmic procedure; Z20.822 Contact with and (suspected) exposure to COVID-19; I50.33 Acute on chronic diastolic (congestive) heart failure; E11.51 Type 2 diabetes mellitus with diabetic peripheral angiopathy without gangrene; I25.10 Atherosclerotic heart disease of native coronary artery without angina pectoris; B18.2 Chronic viral hepatitis C; E78.5 Hyperlipidemia, unspecified; E78.00 Pure hypercholesterolemia, unspecified; E78.1 Pure hyperglyceridemia; F41.9 Anxiety disorder, unspecified; F32.9 Major depressive disorder, single episode, unspecified; I48.91 Unspecified atrial fibrillation; H40.20X0 Unspecified primary angle-closure glaucoma, stage unspecified; E83.42 Hypomagnesemia; E87.6 Hypokalemia; E11.622 Type 2 diabetes mellitus with other skin ulcer; W19.XXXA Unspecified fall, initial encounter; Z95.1 Presence of aortocoronary bypass graft; I25.2 Old myocardial infarction; Z90.49 Acquired absence of other specified parts of digestive tract; Z87.891 Personal history of nicotine dependence; Z88.5 Allergy status to narcotic agent; Z88.0 Allergy status to penicillin; Z79.84 Long term (current) use of oral hypoglycemic drugs; Z79.899 Other long term (current) drug therapy; Z79.01 Long term (current) use of anticoagulants
CPT/HCPCS: 36415; 36416; 70450; 71045; 72170; 72195; 80048; 80053; 81003; 81015; 83605; 83630; 83735; 83880; 84100; 85025; 85652; 86140; 87045; 87046; 87324; 87427; 87449; 87635; 93005; 93306; 94760; 96374; 96375; 97139; J0780; J1120; J1650; J1815; J1885; J1940; J2270; J3475; U0003; U0005

== ENCOUNTER 2020-07-24 00:36 | Inpatient (IN) | payer OTHER ==
[2020-07-24 01:29] LABS: #Lymphocytes 1.3 thou/uL (1.20-3.40); #Monocytes 0.6 thou/uL (0.11-0.59); #Neutrophils 8.6 thou/uL (1.40-6.50); %Basophils 0.1 % (0.0-1.0); %Eosinophils 0.2 % (0.0-10.0); %Lymphocytes 12.1 % (21.0-51.0); %Monocytes 6.1 % (0.0-10.0); %Neutrophils 81.5 % (42.0-75.0); Hemoglobin 9.2 g/dL (12.0-16.0); Mean Corpuscular HGB CONC 30.2 g/dL (32.0-36.0); Mean Corpuscular Hemoglobin 22.8 pg (27.0-31.0); Mean Corpuscular Volume 75.7 fL (78.0-98.0); Mean Platelet Volume 9.8 fL (7.4-10.4); Platelet Count 371 thou/uL (130-400); RBC Distribution Width 21.9 % (11.5-14.5); Red Blood Cell (RBC) Count 4.04 mill/uL (4.20-5.40); White Blood Cell (WBC) Count 10.5 thou/uL (4.8-10.8)
[2020-07-24 01:45] LABS: ALT (SGPT) 9 U/L (8-55); AST (SGOT) 13 U/L (5-34); Albumin 3.1 g/dL (3.5-5.0); Alkaline Phosphatase 127 U/L (40-110); Anion Gap 18 mmol/L (10-20); BUN (Urea Nitrogen) 70 mg/dL (9.8-20.1); Bilirubin, Total 0.4 mg/dL (0.2-1.2); Calc. Creatinine Clearance 0 mL/min (70-130); Calcium 8.7 mg/dL (7.8-10.44); Carbon Dioxide 16 mmol/L (22-29); Chloride 106 mmol/L (98-107); Globulin 3.9 g/dL (2.4-3.5); Glucose 157 mg/dL (70-105); Sodium 134 mmol/L (136-145)
[2020-07-24] MEDS ORDERED: Calcium Gluconate 4.6 MEQ in Sodium Chloride 0.9% 100 ML IVPB SCH (07:35)
[2020-07-24] MEDS ORDERED: Acetaminophen 650 MG Suppository PR PRN (07:57)
[2020-07-24] MEDS ORDERED: Calcium Gluc 4.6 MEQ/10 ML (100 MG/ML) ONE (08:06)
[2020-07-24 08:08] LABS: Anion Gap 18 mmol/L (10-20); BUN (Urea Nitrogen) 74 mg/dL (9.8-20.1); Calc. Creatinine Clearance 0 mL/min (70-130); Calcium 8.6 mg/dL (7.8-10.44); Carbon Dioxide 17 mmol/L (22-29); Chloride 108 mmol/L (98-107); Glucose 151 mg/dL (70-105); Potassium 6.9 mmol/L (3.5-5.1); Sodium 136 mmol/L (136-145)
[2020-07-24] MEDS ORDERED: Dextrose 50% Abboject 50 ML SYRINGE SLOW IVP ONE (08:13)
[2020-07-24] MEDS ORDERED: Insulin Regular 300 UNITS/3 ML VIAL IVP SCH (08:15)
[2020-07-24 08:22] LABS: Actual Bicarbonate (HCO3v) 17 mEq/L (22-28); Analyzer IN Cardio ER; Base Excess -7.5 mEq/L (-2.0 to +3.0); Calcium, Ionized (venous) 1.05 mmol/L (1.16-1.32); Chloride (VBG) 110 mmol/L (98-106); Hemoglobin (Hb) 10.9 g/dL (11.7-16.0); Sodium 134.6 mmol/L (133-146); pH (venous) 7.34 (7.32-7.43)
[2020-07-24] MEDS ORDERED: Dextrose 50% Abboject 50 ML SYRINGE ONE (08:25)
[2020-07-24] MEDS ORDERED: Insulin Regular 300 UNITS/3 ML VIAL ONE (08:25)
[2020-07-24] MEDS ORDERED: Albuterol Sulfate 2.5 mg/3 ml Neb ONE (08:28)
[2020-07-24] MEDS ORDERED: Albuterol Sulfate 2.5 mg/3 ml Neb EZPAP SCH (08:30)
[2020-07-24 08:34] LABS: Lactic Acid 1.5 mmol/L (0.5-2.2)
[2020-07-24] MEDS ORDERED: Enoxaparin Sodium 40 MG/0.4 ML SYRINGE SC SCH (09:00)
[2020-07-24 09:15] LABS: SARS-CoV-2 NAA Rapid Test Not Detected (NotDetected)
[2020-07-24] MEDS ORDERED: Clopidogrel Bisulfate 75 MG TAB ONE (10:12)
[2020-07-24] MEDS: Clopidogrel Bisulfate 75 MG TAB PO SCH (10:24)
[2020-07-24] MEDS: Albuterol Sulfate 2.5 mg/3 ml Neb EZPAP ONE ×2 (10:41→10:43)
[2020-07-24] MEDS ORDERED: cefTRIAXone\\ROCEPHIN 1 GM VIAL ONE (11:07)
[2020-07-24] MEDS: cefTRIAXone\\ROCEPHIN 1 GM in Sodium Chloride 0.9% 100 ML IVPB SCH (11:16)
[2020-07-24 13:33] LABS: Anion Gap 21 mmol/L (10-20); BUN (Urea Nitrogen) 75 mg/dL (9.8-20.1); Calc. Creatinine Clearance 0 mL/min (70-130); Calcium 8.9 mg/dL (7.8-10.44); Carbon Dioxide 13 mmol/L (22-29); Chloride 107 mmol/L (98-107); Glucose 155 mg/dL (70-105); Potassium 4.8 mmol/L (3.5-5.1); Sodium 136 mmol/L (136-145)
[2020-07-24] MEDS ORDERED: Furosemide 40 MG/4 ML VIAL ONE (15:20)
[2020-07-24] MEDS: Furosemide 40 MG/4 ML VIAL SLOW IVP SCH (15:21)
[2020-07-24] MEDS: Heparin 5,000 UNITS/ML VIAL SC SCH (20:44)
[2020-07-24] MEDS: Acetaminophen 325 MG TAB PO PRN (20:45)
[2020-07-24] MEDS: Atorvastatin Calcium 40 MG TAB PO SCH (20:46)
[2020-07-24] MEDS: Brimonidine Tartrate 0.2% Ophth Soln 5 ml Bottle R EYE SCH (20:59)
[2020-07-24] MEDS ORDERED: Doxycycline 100 MG in Syringe 0 ML IVPB SCH (21:00)
[2020-07-24] MEDS ORDERED: Dextrose 50% Abboject 50 ML SYRINGE SLOW IVP PRN (21:24)
[2020-07-24] MEDS ORDERED: Dextrose 5% in Water 1,000 ML IV PRN (21:24)
[2020-07-24] MEDS ORDERED: HumaLOG 300 UNITS/3 ML VIAL SC PRN (21:24)
[2020-07-25 00:59] LABS: Anion Gap 19 mmol/L (10-20); BUN (Urea Nitrogen) 72 mg/dL (9.8-20.1); Calc. Creatinine Clearance 35 mL/min (70-130); Calcium 8.6 mg/dL (7.8-10.44); Carbon Dioxide 15 mmol/L (22-29); Chloride 106 mmol/L (98-107); Glucose 176 mg/dL (70-105); Sodium 136 mmol/L (136-145)
[2020-07-25] MEDS: Brimonidine Tartrate 0.2% Ophth Soln 5 ml Bottle R EYE SCH ×3 (02:34→20:09)
[2020-07-25 03:08] LABS: Bacteria/HPF None Seen HPF (None Seen); Bilirubin Negative (Negative); Blood, Urine 1+ (Negative); Clarity Clear (Clear); Glucose, Urine (Dipstick) Normal (Negative); Ketone, Urine Negative (Negative); Leukocyte 250 Leu/uL (Negative); Nitrite Negative (Negative); Protein, Urine (Dipstick) 70 mg/dL (Neg-Trace); Specific Gravity, Urine 1.014 (1.002-1.036); Squamous Epithelial 0-3 HPF (0-3); Urobilinogen Normal mg/dL (Less than 2)
[2020-07-25 03:12] LABS: Urine Culture Reflex Yes Yes
[2020-07-25 03:24] LABS: Creatinine, Urine 37.58 mg/dL (47-110)
[2020-07-25] MEDS: Furosemide 40 MG/4 ML VIAL SLOW IVP SCH ×2 (05:15→14:06)
[2020-07-25 05:19] LABS: #Eosinphils 0.1 thou/uL (0.0-0.7); #Monocytes 0.6 thou/uL (0.11-0.59); #Neutrophils 4.4 thou/uL (1.40-6.50); %Basophils 0.3 % (0.0-1.0); %Eosinophils 0.9 % (0.0-10.0); %Lymphocytes 16.7 % (21.0-51.0); %Monocytes 9.8 % (0.0-10.0); %Neutrophils 72.4 % (42.0-75.0); Hemoglobin 8.3 g/dL (12.0-16.0); Mean Corpuscular HGB CONC 31.3 g/dL (32.0-36.0); Mean Corpuscular Hemoglobin 23.2 pg (27.0-31.0); Mean Corpuscular Volume 74.1 fL (78.0-98.0); Mean Platelet Volume 10.3 fL (7.4-10.4); Platelet Count 328 thou/uL (130-400); RBC Distribution Width 22.4 % (11.5-14.5); Red Blood Cell (RBC) Count 3.55 mill/uL (4.20-5.40); White Blood Cell (WBC) Count 6.1 thou/uL (4.8-10.8)
[2020-07-25] MEDS: HumaLOG 300 UNITS/3 ML VIAL SC PRN ×2 (05:28→12:34)
[2020-07-25 05:39] LABS: Anion Gap 18 mmol/L (10-20); BUN (Urea Nitrogen) 68 mg/dL (9.8-20.1); Calc. Creatinine Clearance 39 mL/min (70-130); Calcium 8.5 mg/dL (7.8-10.44); Carbon Dioxide 16 mmol/L (22-29); Chloride 106 mmol/L (98-107); Glucose 166 mg/dL (70-105); Potassium 3.9 mmol/L (3.5-5.1); Sodium 136 mmol/L (136-145)
[2020-07-25 08:49] LABS: Iron 17 ug/dL (50-170); Iron Binding Capacity, Total 243 mcg/dL (265-497)
[2020-07-25] MEDS: Heparin 5,000 UNITS/ML VIAL SC SCH ×2 (09:55→20:09)
[2020-07-25] MEDS: Clopidogrel Bisulfate 75 MG TAB PO SCH (09:55)
[2020-07-25] MEDS: cefTRIAXone\\ROCEPHIN 1 GM in Sodium Chloride 0.9% 100 ML IVPB SCH (10:01)
[2020-07-25 10:46] VITALS: BMI 24.5
[2020-07-25] MEDS: Sodium Bicarbonate Tab 325 MG TAB PO SCH ×2 (14:06→20:10)
[2020-07-25] MEDS: Atorvastatin Calcium 40 MG TAB PO SCH (20:11)
[2020-07-26] MEDS: Furosemide 40 MG/4 ML VIAL SLOW IVP SCH ×2 (05:15→13:12)
[2020-07-26 07:27] LABS: #Basophils 0.1 thou/uL (0.0-0.2); #Eosinphils 0.3 thou/uL (0.0-0.7); #Lymphocytes 1.2 thou/uL (1.20-3.40); #Monocytes 0.6 thou/uL (0.11-0.59); #Neutrophils 4.6 thou/uL (1.40-6.50); %Basophils 0.9 % (0.0-1.0); %Eosinophils 4.8 % (0.0-10.0); %Lymphocytes 17.5 % (21.0-51.0); %Monocytes 9.5 % (0.0-10.0); %Neutrophils 67.3 % (42.0-75.0); Hemoglobin 9.4 g/dL (12.0-16.0); Mean Corpuscular HGB CONC 32.4 g/dL (32.0-36.0); Mean Corpuscular Hemoglobin 23.8 pg (27.0-31.0); Mean Corpuscular Volume 73.5 fL (78.0-98.0); Mean Platelet Volume 9.7 fL (7.4-10.4); Platelet Count 379 thou/uL (130-400); RBC Distribution Width 21.9 % (11.5-14.5); Red Blood Cell (RBC) Count 3.94 mill/uL (4.20-5.40); White Blood Cell (WBC) Count 6.8 thou/uL (4.8-10.8)
[2020-07-26 07:39] LABS: Chloride 108 mmol/L (98-107); Potassium 3.4 mmol/L (3.5-5.1); Sodium 140 mmol/L (136-145)
[2020-07-26 07:40] LABS: Calcium 8.4 mg/dL (7.8-10.44); Glucose 157 mg/dL (70-105)
[2020-07-26 07:42] LABS: Anion Gap 12 mmol/L (10-20); Carbon Dioxide 23 mmol/L (22-29)
[2020-07-26 07:44] LABS: BUN (Urea Nitrogen) 42 mg/dL (9.8-20.1); Calc. Creatinine Clearance 50 mL/min (70-130)
[2020-07-26] MEDS: Clopidogrel Bisulfate 75 MG TAB PO SCH (08:45)
[2020-07-26] MEDS: Sodium Bicarbonate Tab 325 MG TAB PO SCH ×3 (08:45→20:50)
[2020-07-26] MEDS: Acetaminophen 325 MG TAB PO PRN ×3 (08:45→17:57)
[2020-07-26] MEDS: Heparin 5,000 UNITS/ML VIAL SC SCH ×2 (08:46→20:52)
[2020-07-26] MEDS: Brimonidine Tartrate 0.2% Ophth Soln 5 ml Bottle R EYE SCH ×2 (08:46→20:49)
[2020-07-26] MEDS: Iron, Sodium Ferric Gluconate 250 MG in Sodium Chloride 0.9% 100 ML IVPB SCH ×2 (08:46→20:51)
[2020-07-26] MEDS ORDERED: Magnesium Sulfate 4 GM in Sodium Chloride 0.9% 250 ML 250 ML IVPB SCH (11:45)
[2020-07-26] MEDS: cefTRIAXone\\ROCEPHIN 1 GM in Sodium Chloride 0.9% 100 ML IVPB SCH (13:12)
[2020-07-26] MEDS: Potassium Chloride 20 MEQ TAB PO SCH ×2 (13:12→17:58)
[2020-07-26] MEDS: HumaLOG 300 UNITS/3 ML VIAL SC PRN (13:17)
[2020-07-26] MEDS: Atorvastatin Calcium 40 MG TAB PO SCH (20:50)
[2020-07-26 22:24] LABS: Troponin I 0.013 ng/mL (< 0.028)
[2020-07-27] MEDS: Acetaminophen 325 MG TAB PO PRN ×3 (02:07→15:42)
[2020-07-27 04:46] LABS: Anion Gap 15 mmol/L (10-20); BUN (Urea Nitrogen) 27 mg/dL (9.8-20.1); Calc. Creatinine Clearance 57 mL/min (70-130); Calcium 8.3 mg/dL (7.8-10.44); Carbon Dioxide 18 mmol/L (22-29); Chloride 107 mmol/L (98-107); Glucose 164 mg/dL (70-105); Potassium 4.4 mmol/L (3.5-5.1); Sodium 136 mmol/L (136-145)
[2020-07-27] MEDS: Furosemide 40 MG/4 ML VIAL SLOW IVP SCH (05:03)
[2020-07-27 05:18] LABS: #Eosinphils 0.2 thou/uL (0.0-0.7); #Lymphocytes 1.4 thou/uL (1.20-3.40); #Monocytes 0.6 thou/uL (0.11-0.59); #Neutrophils 3.5 thou/uL (1.40-6.50); %Basophils 0.3 % (0.0-1.0); %Eosinophils 3.7 % (0.0-10.0); %Lymphocytes 24.1 % (21.0-51.0); %Monocytes 10.3 % (0.0-10.0); %Neutrophils 61.6 % (42.0-75.0); Hemoglobin 8.8 g/dL (12.0-16.0); Mean Corpuscular HGB CONC 30.9 g/dL (32.0-36.0); Mean Corpuscular Volume 74.3 fL (78.0-98.0); Mean Platelet Volume 9.5 fL (7.4-10.4); Platelet Count 385 thou/uL (130-400); RBC Distribution Width 22.2 % (11.5-14.5); Red Blood Cell (RBC) Count 3.85 mill/uL (4.20-5.40); White Blood Cell (WBC) Count 5.7 thou/uL (4.8-10.8)
[2020-07-27 05:19] LABS: Anisocytosis SLIGHT = 6-15 cells (100X) (0-5/hpf); MDiff Complete? YES; Microcytosis SLIGHT = 6-15 cells (100X) (0-5/hpf)
[2020-07-27] MEDS: HumaLOG 300 UNITS/3 ML VIAL SC PRN ×2 (06:22→11:43)
[2020-07-27] MEDS: Heparin 5,000 UNITS/ML VIAL SC SCH ×2 (09:27→22:01)
[2020-07-27] MEDS: Torsemide 20 MG TAB PO SCH (09:28)
[2020-07-27] MEDS: Clopidogrel Bisulfate 75 MG TAB PO SCH (09:28)
[2020-07-27] MEDS: Sodium Bicarbonate Tab 325 MG TAB PO SCH ×3 (09:29→22:00)
[2020-07-27] MEDS: Brimonidine Tartrate 0.2% Ophth Soln 5 ml Bottle R EYE SCH ×2 (09:30→22:06)
[2020-07-27] MEDS: cefTRIAXone\\ROCEPHIN 1 GM in Sodium Chloride 0.9% 100 ML IVPB SCH (10:54)
[2020-07-27] MEDS ORDERED: traMADol HCl 50 MG TAB PO PRN (16:17)
[2020-07-27] MEDS: metFORMIN 500 MG TAB PO SCH (17:04)
[2020-07-27] MEDS: Gabapentin 100 MG CAP PO SCH (21:59)
[2020-07-27] MEDS: Mirtazapine 15 MG TAB PO SCH (22:00)
[2020-07-27] MEDS: Atorvastatin Calcium 40 MG TAB PO SCH (22:00)
[2020-07-27] MEDS: Doxycycline 100 MG CAP PO SCH (22:01)
[2020-07-28] MEDS: traMADol HCl 50 MG TAB PO PRN (01:19)
[2020-07-28 04:34] LABS: #Basophils 0.1 thou/uL (0.0-0.2); #Eosinphils 0.3 thou/uL (0.0-0.7); #Monocytes 0.8 thou/uL (0.11-0.59); %Basophils 0.7 % (0.0-1.0); %Eosinophils 4.2 % (0.0-10.0); %Lymphocytes 27.6 % (21.0-51.0); %Monocytes 11.3 % (0.0-10.0); %Neutrophils 56.2 % (42.0-75.0); Hemoglobin 9.5 g/dL (12.0-16.0); Mean Corpuscular HGB CONC 31.5 g/dL (32.0-36.0); Mean Corpuscular Hemoglobin 23.5 pg (27.0-31.0); Mean Corpuscular Volume 74.6 fL (78.0-98.0); Mean Platelet Volume 9.5 fL (7.4-10.4); Platelet Count 422 thou/uL (130-400); RBC Distribution Width 22.7 % (11.5-14.5); Red Blood Cell (RBC) Count 4.03 mill/uL (4.20-5.40); White Blood Cell (WBC) Count 7.2 thou/uL (4.8-10.8)
[2020-07-28 04:53] LABS: Anion Gap 11 mmol/L (10-20); BUN (Urea Nitrogen) 21 mg/dL (9.8-20.1); Calc. Creatinine Clearance 62 mL/min (70-130); Calcium 8.4 mg/dL (7.8-10.44); Carbon Dioxide 24 mmol/L (22-29); Chloride 106 mmol/L (98-107); Glucose 102 mg/dL (70-105); Potassium 4.1 mmol/L (3.5-5.1); Sodium 137 mmol/L (136-145)
[2020-07-28] MEDS: metFORMIN 500 MG TAB PO SCH (08:46)
[2020-07-28] MEDS: Torsemide 20 MG TAB PO SCH (08:46)
[2020-07-28] MEDS: Sodium Bicarbonate Tab 325 MG TAB PO SCH ×3 (08:46→21:11)
[2020-07-28] MEDS: Clopidogrel Bisulfate 75 MG TAB PO SCH (08:47)
[2020-07-28] MEDS: Amlodipine 10 MG TAB PO SCH (08:47)
[2020-07-28] MEDS: Doxycycline 100 MG CAP PO SCH ×2 (08:47→21:13)
[2020-07-28] MEDS: Citalopram 20 MG TAB PO SCH (08:47)
[2020-07-28] MEDS: Potassium Chloride 20 MEQ TAB PO SCH (08:47)
[2020-07-28] MEDS: Gabapentin 100 MG CAP PO SCH ×3 (08:47→21:12)
[2020-07-28] MEDS: Heparin 5,000 UNITS/ML VIAL SC SCH ×2 (08:48→21:13)
[2020-07-28] MEDS: Brimonidine Tartrate 0.2% Ophth Soln 5 ml Bottle R EYE SCH ×2 (08:48→21:10)
[2020-07-28] MEDS: Alogliptin 25 MG TAB PO SCH (10:19)
[2020-07-28] MEDS: Iron, Sodium Ferric Gluconate 250 MG in Sodium Chloride 0.9% 100 ML IVPB SCH (10:20)
[2020-07-28] MEDS ORDERED: Iopamidol-370 76% 500 ML 1 ML ONE (12:06)
[2020-07-28] MEDS: HumaLOG 300 UNITS/3 ML VIAL SC PRN (12:08)
[2020-07-28] MEDS: Acetaminophen 325 MG TAB PO PRN ×2 (16:34→23:59)
[2020-07-28] MEDS: Mirtazapine 15 MG TAB PO SCH (21:11)
[2020-07-28] MEDS: Atorvastatin Calcium 40 MG TAB PO SCH (21:11)
[2020-07-29 05:12] LABS: #Basophils 0.1 thou/uL (0.0-0.2); #Eosinphils 0.3 thou/uL (0.0-0.7); #Neutrophils 4.2 thou/uL (1.40-6.50); %Basophils 1.1 % (0.0-1.0); %Eosinophils 3.3 % (0.0-10.0); %Lymphocytes 26.6 % (21.0-51.0); %Monocytes 13.4 % (0.0-10.0); %Neutrophils 55.6 % (42.0-75.0); Mean Corpuscular HGB CONC 31.4 g/dL (32.0-36.0); Mean Corpuscular Hemoglobin 23.7 pg (27.0-31.0); Mean Corpuscular Volume 75.4 fL (78.0-98.0); Mean Platelet Volume 9.3 fL (7.4-10.4); Platelet Count 406 thou/uL (130-400); White Blood Cell (WBC) Count 7.6 thou/uL (4.8-10.8)
[2020-07-29 05:21] LABS: Anion Gap 9 mmol/L (10-20); BUN (Urea Nitrogen) 24 mg/dL (9.8-20.1); Calc. Creatinine Clearance 58 mL/min (70-130); Calcium 8.2 mg/dL (7.8-10.44); Carbon Dioxide 29 mmol/L (22-29); Chloride 104 mmol/L (98-107); Glucose 117 mg/dL (70-105); Potassium 4.3 mmol/L (3.5-5.1); Sodium 138 mmol/L (136-145)
[2020-07-29] MEDS: Citalopram 20 MG TAB PO SCH (08:59)
[2020-07-29] MEDS: Sodium Bicarbonate Tab 325 MG TAB PO SCH ×2 (09:01→14:54)
[2020-07-29] MEDS: Doxycycline 100 MG CAP PO SCH (09:01)
[2020-07-29] MEDS: Gabapentin 100 MG CAP PO SCH ×2 (09:01→14:54)
[2020-07-29] MEDS: Amlodipine 10 MG TAB PO SCH (09:01)
[2020-07-29] MEDS: Clopidogrel Bisulfate 75 MG TAB PO SCH (09:01)
[2020-07-29] MEDS: Potassium Chloride 20 MEQ TAB PO SCH (09:01)
[2020-07-29] MEDS: Heparin 5,000 UNITS/ML VIAL SC SCH (09:02)
[2020-07-29] MEDS: Brimonidine Tartrate 0.2% Ophth Soln 5 ml Bottle R EYE SCH (09:06)
[2020-07-29] MEDS: Alogliptin 25 MG TAB PO SCH (10:45)
[2020-07-29] MEDS: traMADol HCl 50 MG TAB PO PRN (10:45)
[2020-07-29] MEDS: Iron, Sodium Ferric Gluconate 250 MG in Sodium Chloride 0.9% 100 ML IVPB SCH (10:46)
[2020-07-29 11:45] VITALS: TEMP 98.5
[2020-07-29] MEDS: Acetaminophen 325 MG TAB PO PRN (14:56)
[2020-07-29 19:26] VITALS: BP 123/56
== END 2020-07-29 16:41 | disposition home health service (06) | DRG 981 ==
LOC: ERS 00:36 → ERHOLD 01:41 → OBSVTOIN 01:41 → 2NO 15:57
PROVIDERS: ADMIT Internal Medicine; ATTEND Family Medicine
PROC: 0LBP0ZZ Excision of Left Lower Leg Tendon, Open Approach (ICD-10-PCS; principal; 2020-07-26)
DX: I13.0 Hypertensive heart and chronic kidney disease with heart failure and stage 1 through stage 4 chronic kidney disease, or unspecified chronic kidney disease (principal); I50.33 Acute on chronic diastolic (congestive) heart failure; J96.01 Acute respiratory failure with hypoxia; J18.9 Pneumonia, unspecified organism; N17.9 Acute kidney failure, unspecified; E87.2 Acidosis; H40.9 Unspecified glaucoma; E11.51 Type 2 diabetes mellitus with diabetic peripheral angiopathy without gangrene; E78.5 Hyperlipidemia, unspecified; I25.10 Atherosclerotic heart disease of native coronary artery without angina pectoris; E11.22 Type 2 diabetes mellitus with diabetic chronic kidney disease; E83.42 Hypomagnesemia; D50.9 Iron deficiency anemia, unspecified; F41.8 Other specified anxiety disorders; N18.30 Chronic kidney disease, stage 3 unspecified; D63.1 Anemia in chronic kidney disease; B18.2 Chronic viral hepatitis C; I70.1 Atherosclerosis of renal artery; E87.6 Hypokalemia; Z20.822 Contact with and (suspected) exposure to COVID-19; Z95.1 Presence of aortocoronary bypass graft; I25.2 Old myocardial infarction; Z88.0 Allergy status to penicillin; Z88.5 Allergy status to narcotic agent; Z88.8 Allergy status to other drugs, medicaments and biological substances; Z79.02 Long term (current) use of antithrombotics/antiplatelets; Z79.84 Long term (current) use of oral hypoglycemic drugs; Z90.49 Acquired absence of other specified parts of digestive tract; S72.002S Fracture of unspecified part of neck of left femur, sequela; S81.802S Unspecified open wound, left lower leg, sequela; I48.0 Paroxysmal atrial fibrillation
CPT/HCPCS: 0240U; 36415; 36416; 71045; 71046; 74175; 76770; 80048; 80053; 81001; 82570; 82728; 82805; 83540; 83550; 83605; 83735; 83880; 84156; 84300; 84484; 84540; 85025; 87040; 87086; 87633; 93005; 93010; 93306; 93976; 94640; 96374; G0378; J0696; J1644; J1815; J1940; J2001; J2916; J3475; J3490; J7050; J7611; J7620; Q9967

== ENCOUNTER 2020-08-21 14:06 | Inpatient (IN) | payer OTHER ==
[2020-08-21] MEDS ORDERED: Iopamidol-370 76% 500 ML 1 ML ONE (14:59)
[2020-08-21] MEDS ORDERED: Cefepime 2 GM VIAL ONE (15:31)
[2020-08-21] MEDS ORDERED: Furosemide 40 MG/4 ML VIAL ONE (15:31)
[2020-08-21 15:59] LABS: Actual Bicarbonate (HCO3a) 25.3 mEq/L (22-28); Analyzer IN Cardio ER; Base Excess (BEa) 0.3 mEq/L (-2.0 to +3.0); CO2 Tension 41.9 mmHg (35.0-45.0); Calcium, Ionized (arterial) 1.17 mmol/L (1.12-1.30); Carboxyhemoglobin (COHb) 1.5 gm% (0.0-3.0); Hemoglobin (Hb) 12.9 g/dL (12.0-16.0); O2 Tension (PaO2), arterial 80.5 mmHg (80.0-100.0); Potassium - ABG Lab 4.06 mmol/L (3.70-5.30)
[2020-08-21 16:00] LABS: ALV-art Gradient 508.825 mmHg (0-20); Puncture Site RRA
[2020-08-21 16:14] LABS: Hemoglobin 12.4 g/dL (12.0-16.0); Mean Corpuscular Hemoglobin 26.6 pg (27.0-31.0); Mean Corpuscular Volume 91.3 fL (78.0-98.0); Red Blood Cell (RBC) Count 4.68 mill/uL (4.20-5.40); White Blood Cell (WBC) Count 6.3 thou/uL (4.8-10.8)
[2020-08-21 16:17] LABS: INR-International Normal Ratio 1.1
[2020-08-21 16:18] LABS: PTT 31.3 sec (22.9-36.1)
[2020-08-21 16:19] LABS: D-Dimer Test 1.84 *mcg/mL (0.27-0.43)
[2020-08-21 16:22] LABS: #Eosinphils 0.1 thou/uL (0.0-0.7); #Lymphocytes 2.1 thou/uL (1.20-3.40); #Monocytes 0.6 thou/uL (0.11-0.59); #Neutrophils 3.5 thou/uL (1.40-6.50); %Basophils 0.7 % (0.0-1.0); %Lymphocytes 33.1 % (21.0-51.0); %Monocytes 8.7 % (0.0-10.0); %Neutrophils 55.4 % (42.0-75.0); Mean Corpuscular HGB CONC 29.1 g/dL (32.0-36.0); Mean Platelet Volume 10.3 fL (7.4-10.4); Platelet Count 311 thou/uL (130-400); RBC Distribution Width 28.8 % (11.5-14.5)
[2020-08-21 16:29] LABS: ALT (SGPT) 15 U/L (8-55); AST (SGOT) 25 U/L (5-34); Albumin 3.2 g/dL (3.5-5.0); Alkaline Phosphatase 234 U/L (40-110); Anion Gap 18 mmol/L (10-20); BUN (Urea Nitrogen) 17 mg/dL (9.8-20.1); Bilirubin, Total 0.4 mg/dL (0.2-1.2); Calc. Creatinine Clearance 0 mL/min (70-130); Calcium 9.2 mg/dL (7.8-10.44); Carbon Dioxide 20 mmol/L (22-29); Chloride 101 mmol/L (98-107); Glucose 156 mg/dL (70-105); Lipase 36 U/L (8-78); Potassium 4.3 mmol/L (3.5-5.1); Protein, Total 7.2 g/dL (6.0-8.3); Sodium 135 mmol/L (136-145)
[2020-08-21 16:48] LABS: SARS-CoV-2 NAA Rapid Test Not Detected (NotDetected)
[2020-08-21] MEDS ORDERED: Azithromycin 500 MG VIAL ONE (17:24)
[2020-08-21 17:40] LABS: Fluid, pH - Pleural Fld Greater than 7.50 (7.60 - 7.66)
[2020-08-21 18:24] LABS: RBC Count-Automated (BF) 1720 /cu.mm; WBC/Nucleated-Auto (BF) 41 uL
[2020-08-21 18:38] LABS: BF Color Yellow; Body Fluid Source Thoracentesis Fluid; Clarity Clear (Clear); Tube # EDTA
[2020-08-21 18:49] LABS: BF Segmented Neutrophils 3 %; Cell Count Non Hematic 19 %; Lymphocytes 78 %
[2020-08-21 18:56] LABS: Pleural Fluid, Amylase Less than 30 U/L (Not Available)
[2020-08-21 18:58] LABS: Pleural Fluid, Glucose 201 mg/dL
[2020-08-21 18:59] LABS: Fluid, Triglycerides 12 mg/dL (Not Available); Pleural Fluid, Protein 1.8 g/dL
[2020-08-21 19:02] LABS: Pleural Fluid, LDH 73 U/L (Not Available)
[2020-08-21] MEDS ORDERED: Acetaminophen 325 MG TAB PO PRN (21:30)
[2020-08-21] MEDS ORDERED: Ondansetron PF 4 MG/2 ML Vial IVP PRN (21:30)
[2020-08-21] MEDS ORDERED: Ondansetron ODT 4 MG TAB SL PRN (21:30)
[2020-08-21] MEDS ORDERED: Bisacodyl 10 MG SUPP PR PRN (21:49)
[2020-08-21] MEDS ORDERED: Zolpidem Tartrate 5 MG TAB PO PRN (21:49)
[2020-08-21] MEDS ORDERED: hydrALAZINE 20 MG/ML VIAL SLOW IVP PRN (21:52)
[2020-08-21] MEDS ORDERED: Furosemide 40 MG/4 ML VIAL SLOW IVP SCH (22:00)
[2020-08-22 04:18] LABS: #Basophils 0.1 thou/uL (0.0-0.2); #Eosinphils 0.1 thou/uL (0.0-0.7); #Lymphocytes 1.2 thou/uL (1.20-3.40); #Monocytes 0.5 thou/uL (0.11-0.59); #Neutrophils 5.7 thou/uL (1.40-6.50); %Basophils 1.1 % (0.0-1.0); %Eosinophils 1.4 % (0.0-10.0); %Lymphocytes 15.5 % (21.0-51.0); %Monocytes 7.1 % (0.0-10.0); %Neutrophils 74.9 % (42.0-75.0); Hemoglobin 10.9 g/dL (12.0-16.0); Mean Corpuscular Hemoglobin 27.2 pg (27.0-31.0); Mean Corpuscular Volume 90.7 fL (78.0-98.0); Mean Platelet Volume 10.7 fL (7.4-10.4); Platelet Count 299 thou/uL (130-400); Red Blood Cell (RBC) Count 4.03 mill/uL (4.20-5.40); White Blood Cell (WBC) Count 7.6 thou/uL (4.8-10.8)
[2020-08-22 04:46] LABS: Anion Gap 14 mmol/L (10-20); BUN (Urea Nitrogen) 17 mg/dL (9.8-20.1); Calc. Creatinine Clearance 49 mL/min (70-130); Calcium 8.7 mg/dL (7.8-10.44); Carbon Dioxide 21 mmol/L (22-29); Chloride 103 mmol/L (98-107); Glucose 134 mg/dL (70-105); Magnesium 1.8 mg/dL (1.6-2.6); Potassium 4.2 mmol/L (3.5-5.1); Sodium 134 mmol/L (136-145)
[2020-08-22] MEDS: Furosemide 40 MG/4 ML VIAL SLOW IVP SCH ×2 (06:38→14:20)
[2020-08-22] MEDS: Alogliptin 25 MG TAB PO SCH (08:34)
[2020-08-22] MEDS: metFORMIN 500 MG TAB PO SCH ×2 (08:35→16:24)
[2020-08-22] MEDS: Citalopram 20 MG TAB PO SCH (08:35)
[2020-08-22] MEDS: Clopidogrel Bisulfate 75 MG TAB PO SCH (08:35)
[2020-08-22] MEDS: Amlodipine 10 MG TAB PO SCH (08:35)
[2020-08-22] MEDS: traMADol HCl 50 MG TAB PO PRN ×2 (09:54→16:24)
[2020-08-22] MEDS: Timolol 0.5% Ophth Soln 5 ml Bottle R EYE SCH ×2 (09:55→20:48)
[2020-08-22] MEDS: HumaLOG 300 UNITS/3 ML VIAL SC PRN (11:30)
[2020-08-22] MEDS: Atorvastatin Calcium 40 MG TAB PO SCH (20:48)
[2020-08-22] MEDS: Mirtazapine 15 MG TAB PO SCH (20:48)
[2020-08-23] MEDS: traMADol HCl 50 MG TAB PO PRN ×4 (00:14→20:38)
[2020-08-23 05:49] LABS: Anion Gap 11 mmol/L (10-20); BUN (Urea Nitrogen) 17 mg/dL (9.8-20.1); Calc. Creatinine Clearance 61 mL/min (70-130); Calcium 8.7 mg/dL (7.8-10.44); Carbon Dioxide 28 mmol/L (22-29); Chloride 102 mmol/L (98-107); Glucose 85 mg/dL (70-105); Potassium 3.7 mmol/L (3.5-5.1); Sodium 137 mmol/L (136-145)
[2020-08-23] MEDS: Furosemide 40 MG/4 ML VIAL SLOW IVP SCH ×2 (06:23→14:10)
[2020-08-23 06:38] LABS: #Eosinphils 0.2 thou/uL (0.0-0.7); #Lymphocytes 1.7 thou/uL (1.20-3.40); #Monocytes 0.7 thou/uL (0.11-0.59); #Neutrophils 3.5 thou/uL (1.40-6.50); %Basophils 0.5 % (0.0-1.0); %Eosinophils 2.6 % (0.0-10.0); %Lymphocytes 27.9 % (21.0-51.0); Anisocytosis MODERATE=16-30 cells (100X) (0-5/hpf); Hemoglobin 11.4 g/dL (12.0-16.0); MDiff Complete? YES; Mean Corpuscular HGB CONC 29.6 g/dL (32.0-36.0); Mean Corpuscular Hemoglobin 27.2 pg (27.0-31.0); Mean Corpuscular Volume 91.9 fL (78.0-98.0); Mean Platelet Volume 9.6 fL (7.4-10.4); Platelet Count 291 thou/uL (130-400); RBC Distribution Width 27.4 % (11.5-14.5); Red Blood Cell (RBC) Count 4.19 mill/uL (4.20-5.40); White Blood Cell (WBC) Count 6.2 thou/uL (4.8-10.8)
[2020-08-23] MEDS: Timolol 0.5% Ophth Soln 5 ml Bottle R EYE SCH ×2 (07:56→20:39)
[2020-08-23] MEDS: Spironolactone 25 MG TAB PO SCH (07:57)
[2020-08-23] MEDS: metFORMIN 500 MG TAB PO SCH ×2 (07:57→17:01)
[2020-08-23] MEDS: Alogliptin 25 MG TAB PO SCH (07:57)
[2020-08-23] MEDS: Amlodipine 10 MG TAB PO SCH (07:57)
[2020-08-23] MEDS: Clopidogrel Bisulfate 75 MG TAB PO SCH (07:58)
[2020-08-23] MEDS: Citalopram 20 MG TAB PO SCH (07:58)
[2020-08-23] MEDS: Atorvastatin Calcium 40 MG TAB PO SCH (20:39)
[2020-08-23] MEDS: Mirtazapine 15 MG TAB PO SCH (20:39)
[2020-08-24] MEDS: traMADol HCl 50 MG TAB PO PRN ×3 (04:24→18:05)
[2020-08-24 04:36] LABS: Anion Gap 14 mmol/L (10-20); BUN (Urea Nitrogen) 17 mg/dL (9.8-20.1); Calc. Creatinine Clearance 63 mL/min (70-130); Calcium 8.7 mg/dL (7.8-10.44); Carbon Dioxide 25 mmol/L (22-29); Chloride 101 mmol/L (98-107); Glucose 114 mg/dL (70-105); Magnesium 1.7 mg/dL (1.6-2.6); Potassium 3.9 mmol/L (3.5-5.1); Sodium 136 mmol/L (136-145)
[2020-08-24 05:15] LABS: #Eosinphils 0.1 thou/uL (0.0-0.7); #Lymphocytes 1.6 thou/uL (1.20-3.40); #Monocytes 0.8 thou/uL (0.11-0.59); #Neutrophils 4.3 thou/uL (1.40-6.50); %Monocytes 11.4 % (0.0-10.0); %Neutrophils 62.5 % (42.0-75.0); Hemoglobin 10.7 g/dL (12.0-16.0); Mean Corpuscular HGB CONC 29.4 g/dL (32.0-36.0); Mean Corpuscular Hemoglobin 26.7 pg (27.0-31.0); Mean Corpuscular Volume 90.9 fL (78.0-98.0); Mean Platelet Volume 10.2 fL (7.4-10.4); Platelet Count 278 thou/uL (130-400); RBC Distribution Width 26.8 % (11.5-14.5); Red Blood Cell (RBC) Count 3.99 mill/uL (4.20-5.40); White Blood Cell (WBC) Count 6.8 thou/uL (4.8-10.8)
[2020-08-24] MEDS: Furosemide 40 MG/4 ML VIAL SLOW IVP SCH ×2 (06:44→14:33)
[2020-08-24] MEDS: metFORMIN 500 MG TAB PO SCH ×2 (08:37→16:24)
[2020-08-24] MEDS: Alogliptin 25 MG TAB PO SCH (08:37)
[2020-08-24] MEDS: Spironolactone 25 MG TAB PO SCH (08:37)
[2020-08-24] MEDS: Amlodipine 10 MG TAB PO SCH (08:38)
[2020-08-24] MEDS: Citalopram 20 MG TAB PO SCH (08:38)
[2020-08-24] MEDS: Clopidogrel Bisulfate 75 MG TAB PO SCH (08:39)
[2020-08-24] MEDS: Timolol 0.5% Ophth Soln 5 ml Bottle R EYE SCH ×2 (08:39→21:13)
[2020-08-24] MEDS: HumaLOG 300 UNITS/3 ML VIAL SC PRN ×2 (11:19→16:27)
[2020-08-24] MEDS ORDERED: Morphine 4 MG/ML VIAL SLOW IVP SCH (16:15)
[2020-08-24] MEDS: Mirtazapine 15 MG TAB PO SCH (21:11)
[2020-08-24] MEDS: Atorvastatin Calcium 40 MG TAB PO SCH (21:12)
[2020-08-25] MEDS: traMADol HCl 50 MG TAB PO PRN ×4 (00:33→21:02)
[2020-08-25 04:59] LABS: Anion Gap 15 mmol/L (10-20); BUN (Urea Nitrogen) 20 mg/dL (9.8-20.1); Calc. Creatinine Clearance 61 mL/min (70-130); Carbon Dioxide 25 mmol/L (22-29); Chloride 99 mmol/L (98-107); Glucose 108 mg/dL (70-105); Sodium 135 mmol/L (136-145)
[2020-08-25 05:25] LABS: #Basophils 0.1 thou/uL (0.0-0.2); #Eosinphils 0.2 thou/uL (0.0-0.7); #Lymphocytes 1.6 thou/uL (1.20-3.40); #Monocytes 0.8 thou/uL (0.11-0.59); #Neutrophils 4.6 thou/uL (1.40-6.50); %Basophils 0.8 % (0.0-1.0); %Eosinophils 2.8 % (0.0-10.0); %Lymphocytes 21.6 % (21.0-51.0); %Monocytes 11.4 % (0.0-10.0); %Neutrophils 63.5 % (42.0-75.0); Hemoglobin 11.4 g/dL (12.0-16.0); Mean Corpuscular HGB CONC 29.5 g/dL (32.0-36.0); Mean Corpuscular Hemoglobin 26.7 pg (27.0-31.0); Mean Corpuscular Volume 90.5 fL (78.0-98.0); Mean Platelet Volume 10.3 fL (7.4-10.4); Platelet Count 279 thou/uL (130-400); RBC Distribution Width 26.2 % (11.5-14.5); Red Blood Cell (RBC) Count 4.27 mill/uL (4.20-5.40); White Blood Cell (WBC) Count 7.3 thou/uL (4.8-10.8)
[2020-08-25] MEDS: Furosemide 40 MG/4 ML VIAL SLOW IVP SCH ×2 (05:38→13:44)
[2020-08-25] MEDS: metFORMIN 500 MG TAB PO SCH ×2 (08:42→16:20)
[2020-08-25] MEDS: Spironolactone 25 MG TAB PO SCH (08:43)
[2020-08-25] MEDS: Alogliptin 25 MG TAB PO SCH (08:43)
[2020-08-25] MEDS: Citalopram 20 MG TAB PO SCH (08:44)
[2020-08-25] MEDS: Clopidogrel Bisulfate 75 MG TAB PO SCH (08:44)
[2020-08-25] MEDS: Amlodipine 10 MG TAB PO SCH (08:44)
[2020-08-25] MEDS: Timolol 0.5% Ophth Soln 5 ml Bottle R EYE SCH ×2 (08:45→20:29)
[2020-08-25] MEDS: HumaLOG 300 UNITS/3 ML VIAL SC PRN (12:10)
[2020-08-25] MEDS: Gabapentin 100 MG CAP PO SCH (20:29)
[2020-08-25] MEDS: Mirtazapine 15 MG TAB PO SCH (20:31)
[2020-08-25] MEDS: Atorvastatin Calcium 40 MG TAB PO SCH (20:32)
[2020-08-26] MEDS: traMADol HCl 50 MG TAB PO PRN ×3 (03:13→17:31)
[2020-08-26 04:55] LABS: #Basophils 0.1 thou/uL (0.0-0.2); #Eosinphils 0.2 thou/uL (0.0-0.7); #Lymphocytes 1.9 thou/uL (1.20-3.40); #Monocytes 0.9 thou/uL (0.11-0.59); #Neutrophils 5.5 thou/uL (1.40-6.50); %Basophils 0.7 % (0.0-1.0); %Eosinophils 2.8 % (0.0-10.0); %Lymphocytes 21.8 % (21.0-51.0); %Monocytes 10.4 % (0.0-10.0); %Neutrophils 64.3 % (42.0-75.0); Hemoglobin 11.6 g/dL (12.0-16.0); Mean Corpuscular Hemoglobin 28.9 pg (27.0-31.0); Mean Corpuscular Volume 90.1 fL (78.0-98.0); Mean Platelet Volume 9.1 fL (7.4-10.4); Platelet Count 269 thou/uL (130-400); RBC Distribution Width 25.1 % (11.5-14.5); Red Blood Cell (RBC) Count 4.01 mill/uL (4.20-5.40); White Blood Cell (WBC) Count 8.6 thou/uL (4.8-10.8)
[2020-08-26 05:21] LABS: Anion Gap 13 mmol/L (10-20); BUN (Urea Nitrogen) 24 mg/dL (9.8-20.1); Calc. Creatinine Clearance 56 mL/min (70-130); Carbon Dioxide 30 mmol/L (22-29); Chloride 96 mmol/L (98-107); Glucose 93 mg/dL (70-105); Sodium 134 mmol/L (136-145)
[2020-08-26] MEDS: Furosemide 40 MG/4 ML VIAL SLOW IVP SCH (05:53)
[2020-08-26] MEDS ORDERED: Torsemide 20 MG TAB PO SCH (09:00)
[2020-08-26] MEDS: Amlodipine 10 MG TAB PO SCH (09:53)
[2020-08-26] MEDS: metFORMIN 500 MG TAB PO SCH ×2 (09:53→17:31)
[2020-08-26] MEDS: Alogliptin 25 MG TAB PO SCH (09:53)
[2020-08-26] MEDS: Clopidogrel Bisulfate 75 MG TAB PO SCH (09:54)
[2020-08-26] MEDS: Citalopram 20 MG TAB PO SCH (09:54)
[2020-08-26] MEDS: Gabapentin 100 MG CAP PO SCH ×3 (09:54→20:33)
[2020-08-26] MEDS: Timolol 0.5% Ophth Soln 5 ml Bottle R EYE SCH ×2 (09:55→20:32)
[2020-08-26] MEDS: HumaLOG 300 UNITS/3 ML VIAL SC PRN (11:40)
[2020-08-26] MEDS: Atorvastatin Calcium 40 MG TAB PO SCH (20:32)
[2020-08-26] MEDS: Mirtazapine 15 MG TAB PO SCH (20:33)
[2020-08-27] MEDS: traMADol HCl 50 MG TAB PO PRN ×4 (00:25→19:05)
[2020-08-27 05:03] LABS: Anion Gap 18 mmol/L (10-20); BUN (Urea Nitrogen) 31 mg/dL (9.8-20.1); Calc. Creatinine Clearance 49 mL/min (70-130); Calcium 9.4 mg/dL (7.8-10.44); Carbon Dioxide 28 mmol/L (22-29); Chloride 92 mmol/L (98-107); Glucose 127 mg/dL (70-105); Potassium 4.5 mmol/L (3.5-5.1); Sodium 133 mmol/L (136-145)
[2020-08-27 05:36] LABS: #Basophils 0.1 thou/uL (0.0-0.2); #Eosinphils 0.2 thou/uL (0.0-0.7); #Lymphocytes 1.8 thou/uL (1.20-3.40); #Monocytes 0.9 thou/uL (0.11-0.59); #Neutrophils 6.3 thou/uL (1.40-6.50); %Basophils 0.8 % (0.0-1.0); %Eosinophils 2.6 % (0.0-10.0); %Monocytes 9.4 % (0.0-10.0); %Neutrophils 68.2 % (42.0-75.0); Anisocytosis SLIGHT = 6-15 cells (100X) (0-5/hpf); Hemoglobin 12.8 g/dL (12.0-16.0); MDiff Complete? YES; Mean Corpuscular HGB CONC 30.7 g/dL (32.0-36.0); Mean Corpuscular Hemoglobin 27.7 pg (27.0-31.0); Mean Corpuscular Volume 90.1 fL (78.0-98.0); Mean Platelet Volume 9.5 fL (7.4-10.4); Platelet Count 305 thou/uL (130-400); RBC Distribution Width 24.8 % (11.5-14.5); Red Blood Cell (RBC) Count 4.63 mill/uL (4.20-5.40); White Blood Cell (WBC) Count 9.2 thou/uL (4.8-10.8)
[2020-08-27] MEDS: metFORMIN 500 MG TAB PO SCH ×2 (09:13→16:01)
[2020-08-27] MEDS: Alogliptin 25 MG TAB PO SCH (09:13)
[2020-08-27] MEDS: Gabapentin 100 MG CAP PO SCH ×3 (09:13→20:25)
[2020-08-27] MEDS: Timolol 0.5% Ophth Soln 5 ml Bottle R EYE SCH ×2 (09:15→20:25)
[2020-08-27] MEDS: Citalopram 20 MG TAB PO SCH (09:15)
[2020-08-27] MEDS: Clopidogrel Bisulfate 75 MG TAB PO SCH (09:15)
[2020-08-27] MEDS: Amlodipine 10 MG TAB PO SCH (09:15)
[2020-08-27] MEDS: HumaLOG 300 UNITS/3 ML VIAL SC PRN (11:44)
[2020-08-27 12:08] VITALS: BMI 27.8
[2020-08-27] MEDS: Mirtazapine 15 MG TAB PO SCH (20:25)
[2020-08-27] MEDS: Atorvastatin Calcium 40 MG TAB PO SCH (20:25)
[2020-08-28] MEDS: traMADol HCl 50 MG TAB PO PRN ×2 (02:07→08:41)
[2020-08-28 07:56] LABS: Anion Gap 14 mmol/L (10-20); BUN (Urea Nitrogen) 31 mg/dL (9.8-20.1); BUN/Creatinine Ratio 22.79; Calc. Creatinine Clearance 53 mL/min (70-130); Calcium 9.1 mg/dL (7.8-10.44); Carbon Dioxide 29 mmol/L (22-29); Chloride 94 mmol/L (98-107); Glucose 90 mg/dL (70-105); Sodium 132 mmol/L (136-145)
[2020-08-28 07:57] LABS: Phosphorus 4.3 mg/dL (2.3-4.7)
[2020-08-28] MEDS: Alogliptin 25 MG TAB PO SCH (09:27)
[2020-08-28] MEDS: metFORMIN 500 MG TAB PO SCH (09:27)
[2020-08-28] MEDS: Gabapentin 100 MG CAP PO SCH (09:29)
[2020-08-28] MEDS: Citalopram 20 MG TAB PO SCH (09:29)
[2020-08-28] MEDS: Clopidogrel Bisulfate 75 MG TAB PO SCH (09:29)
[2020-08-28] MEDS: Timolol 0.5% Ophth Soln 5 ml Bottle R EYE SCH (09:31)
[2020-08-28] MEDS: Amlodipine 10 MG TAB PO SCH ×2 (09:32→09:33)
[2020-08-28 12:08] VITALS: TEMP 97.8
[2020-08-28 13:00] VITALS: BP 139/84
== END 2020-08-28 13:55 | disposition home health service (06) | DRG 291 ==
LOC: ERS 14:06 → ERHOLD 17:29 → 2NO 21:37
PROVIDERS: ADMIT Internal Medicine; ATTEND Internal Medicine
PROC: 0W993ZZ Drainage of Right Pleural Cavity, Percutaneous Approach (ICD-10-PCS; principal; 2020-08-21)
PROC: 0W993ZZ Drainage of Right Pleural Cavity, Percutaneous Approach (ICD-10-PCS; 2020-08-21)
PROC: 5A09357 Assistance with Respiratory Ventilation, Less than 24 Consecutive Hours, Continuous Positive Airway Pressure (ICD-10-PCS; 2020-08-21)
DX: I13.0 Hypertensive heart and chronic kidney disease with heart failure and stage 1 through stage 4 chronic kidney disease, or unspecified chronic kidney disease (principal); S72.142A Displaced intertrochanteric fracture of left femur, initial encounter for closed fracture; I50.33 Acute on chronic diastolic (congestive) heart failure; J96.21 Acute and chronic respiratory failure with hypoxia; Z20.822 Contact with and (suspected) exposure to COVID-19; N17.9 Acute kidney failure, unspecified; E87.1 Hypo-osmolality and hyponatremia; E87.2 Acidosis; E87.3 Alkalosis; L97.429 Non-pressure chronic ulcer of left heel and midfoot with unspecified severity; J91.8 Pleural effusion in other conditions classified elsewhere; K76.0 Fatty (change of) liver, not elsewhere classified; I25.10 Atherosclerotic heart disease of native coronary artery without angina pectoris; I48.91 Unspecified atrial fibrillation; E11.42 Type 2 diabetes mellitus with diabetic polyneuropathy; E78.2 Mixed hyperlipidemia; F41.9 Anxiety disorder, unspecified; F32.9 Major depressive disorder, single episode, unspecified; E11.51 Type 2 diabetes mellitus with diabetic peripheral angiopathy without gangrene; N18.30 Chronic kidney disease, stage 3 unspecified; E11.22 Type 2 diabetes mellitus with diabetic chronic kidney disease; B19.20 Unspecified viral hepatitis C without hepatic coma; D63.1 Anemia in chronic kidney disease; E11.621 Type 2 diabetes mellitus with foot ulcer; T50.1X5A Adverse effect of loop [high-ceiling] diuretics, initial encounter; I25.2 Old myocardial infarction; Z95.1 Presence of aortocoronary bypass graft; Z87.891 Personal history of nicotine dependence; Z90.49 Acquired absence of other specified parts of digestive tract; Z88.5 Allergy status to narcotic agent; Z88.0 Allergy status to penicillin; Z88.8 Allergy status to other drugs, medicaments and biological substances; Z91.09 Other allergy status, other than to drugs and biological substances; Z79.899 Other long term (current) drug therapy; Z79.82 Long term (current) use of aspirin; Z79.84 Long term (current) use of oral hypoglycemic drugs
CPT/HCPCS: 0240U; 36415; 36416; 36600; 70450; 71045; 71275; 76377; 80048; 80053; 80069; 82150; 82805; 82945; 83615; 83690; 83735; 83880; 83986; 84157; 84478; 84484; 85025; 85060; 85379; 85610; 85730; 87040; 87070; 87116; 87205; 87206; 88112; 88305; 89051; 93005; 94150; 94660; 96365; 96366; 96367; 96375; J0456; J0692; J1815; J1940; J2270; J3370; J7030; Q9967

== ENCOUNTER 2021-03-24 04:09 | Inpatient (IN) | payer OTHER ==
[2021-03-24 05:29] LABS: Anion Gap 15 mmol/L (10-20); BUN (Urea Nitrogen) 30 mg/dL (9.8-20.1); Calc. Creatinine Clearance 0 mL/min (70-130); Calcium 8.7 mg/dL (7.8-10.44); Carbon Dioxide 22 mmol/L (22-29); Chloride 104 mmol/L (98-107); Glucose 325 mg/dL (70-105); Potassium 3.2 mmol/L (3.5-5.1); Sodium 138 mmol/L (136-145)
[2021-03-24] MEDS ORDERED: Cepastat Lozenges 1 LOZ PO PRN (06:54)
[2021-03-24] MEDS ORDERED: Artificial Tear Sol 15 ML BOT EA EYE PRN (06:54)
[2021-03-24] MEDS ORDERED: Loratadine 10 MG TAB PO PRN (06:54)
[2021-03-24] MEDS ORDERED: Calcium Carbonate 500 MG ChewTAB PO PRN (06:54)
[2021-03-24] MEDS ORDERED: Hydrocerin (Eucerin) Cream 120 gm Jar TOP PRN (06:54)
[2021-03-24] MEDS ORDERED: Ondansetron ODT 4 MG TAB PO PRN (06:54)
[2021-03-24] MEDS ORDERED: Sodium Chloride 0.65% Nasal 44 ML BOT EA NARE PRN (06:54)
[2021-03-24] MEDS ORDERED: Guaifenesin DM 100-10/5 ML UDCUP PO PRN (06:54)
[2021-03-24] MEDS ORDERED: Senokot S 8.6-50 MG TAB PO PRN (06:54)
[2021-03-24] MEDS ORDERED: HumaLOG 300 UNITS/3 ML VIAL SC PRN (06:54)
[2021-03-24] MEDS ORDERED: Acetaminophen 325 MG TAB PO PRN (06:54)
[2021-03-24] MEDS ORDERED: hydrALAZINE 20 MG/ML VIAL SLOW IVP PRN (06:54)
[2021-03-24] MEDS ORDERED: Bisacodyl 10 MG SUPP PR PRN ×2 (06:54)
[2021-03-24] MEDS ORDERED: Loperamide HCl 2 MG CAP PO PRN (06:54)
[2021-03-24] MEDS ORDERED: Ondansetron PF 4 MG/2 ML Vial IVP PRN (06:54)
[2021-03-24] MEDS ORDERED: Dextrose 5% in Water 1,000 ML IV PRN (06:54)
[2021-03-24] MEDS ORDERED: Nitroglycerin 0.4 MG TAB (25 Tab Bottle) SL PRN (06:54)
[2021-03-24] MEDS ORDERED: Dextrose 50% Abboject 50 ML SYRINGE SLOW IVP PRN (06:54)
[2021-03-24] MEDS ORDERED: Potassium Chloride 20 MEQ in Premix Bag 1 BAG IVPB SCH (08:00)
[2021-03-24] MEDS ORDERED: Vancomycin 1 GM/200 ML BAG ONE (08:01)
[2021-03-24 08:59] LABS: Cardiac Risk 3.5 (Less than 4.5); Cholesterol 187 mg/dl (< 200 Desired); HDL Cholesterol 53 mg/dL (>60 Neg Risk); LDL Cholesterol, Calculated 89 mg/dL; Magnesium 1.6 mg/dL (1.6-2.6); Phosphorus 4.7 mg/dL (2.3-4.7); Triglycerides 227 mg/dL (Less than 150)
[2021-03-24] MEDS ORDERED: Famotidine 20 MG TAB PO SCH (09:00)
[2021-03-24] MEDS ORDERED: Potassium Chloride 20 MEQ/100 ML PREMIX BAG ONE (09:08)
[2021-03-24] MEDS ORDERED: Ondansetron PF 4 MG/2 ML Vial ONE (09:08)
[2021-03-24 09:11] LABS: Troponin I 2.974 ng/mL (< 0.028)
[2021-03-24 09:28] LABS: Hemoglobin A1c 9.9 % (4.0-6.0)
[2021-03-24] MEDS ORDERED: Famotidine 20 MG TAB ONE (09:36)
[2021-03-24] MEDS ORDERED: HumaLOG 300 UNITS/3 ML VIAL ONE (09:36)
[2021-03-24] MEDS ORDERED: Aspirin 325 MG TAB ONE (09:36)
[2021-03-24] MEDS ORDERED: cefTRIAXone\\ROCEPHIN 1 GM VIAL ONE (09:38)
[2021-03-24] MEDS: cefTRIAXone\\ROCEPHIN 1 GM in Sodium Chloride 0.9% 100 ML IVPB SCH (09:45)
[2021-03-24] MEDS: Aspirin 325 MG TAB PO SCH (09:45)
[2021-03-24] MEDS: Gabapentin 100 MG CAP PO SCH ×3 (09:46→20:47)
[2021-03-24] MEDS: Famotidine 20 MG TAB PO SCH (09:50)
[2021-03-24] MEDS: HumaLOG 300 UNITS/3 ML VIAL SC PRN (09:50)
[2021-03-24] MEDS ORDERED: Enoxaparin Sodium 30 MG/0.3 ML SYRINGE ONE (09:53)
[2021-03-24 10:40] LABS: Troponin I 2.213 ng/mL (< 0.028)
[2021-03-24] MEDS: Brimonidine Tartrate 0.2% Ophth Soln 5 ml Bottle R EYE SCH ×2 (15:53→20:47)
[2021-03-24 16:27] VITALS: BMI 19.7
[2021-03-24] MEDS ORDERED: FLU VACC QS2021-22(6MOS UP)/PF 60 MCG/0.5 ML SYRINGE IM ONE (17:00)
[2021-03-24] MEDS ORDERED: Atorvastatin Calcium 40 MG TAB PO SCH (21:00)
[2021-03-25 05:00] LABS: #Basophils 0.1 thou/uL (0.0-0.2); #Eosinphils 0.1 thou/uL (0.0-0.7); #Lymphocytes 1.9 thou/uL (1.20-3.40); #Monocytes 0.7 thou/uL (0.11-0.59); #Neutrophils 4.3 thou/uL (1.40-6.50); %Basophils 0.9 % (0.0-1.0); %Eosinophils 1.5 % (0.0-10.0); %Lymphocytes 26.6 % (21.0-51.0); %Monocytes 9.8 % (0.0-10.0); %Neutrophils 61.1 % (42.0-75.0); Hemoglobin 12.6 g/dL (12.0-16.0); Mean Corpuscular HGB CONC 33.8 g/dL (32.0-36.0); Mean Corpuscular Hemoglobin 32.7 pg (27.0-31.0); Mean Corpuscular Volume 96.7 fL (78.0-98.0); Mean Platelet Volume 7.4 fL (7.4-10.4); Platelet Count 187 thou/uL (130-400); RBC Distribution Width 13.2 % (11.5-14.5); Red Blood Cell (RBC) Count 3.86 mill/uL (4.20-5.40); White Blood Cell (WBC) Count 7.1 thou/uL (4.8-10.8)
[2021-03-25 05:14] LABS: Lactic Acid 0.7 mmol/L (0.5-2.2)
[2021-03-25 05:28] LABS: ALT (SGPT) 16 U/L (8-55); AST (SGOT) 22 U/L (5-34); Albumin 2.8 g/dL (3.5-5.0); Alkaline Phosphatase 55 U/L (40-110); Anion Gap 11 mmol/L (10-20); BUN (Urea Nitrogen) 22 mg/dL (9.8-20.1); Bilirubin, Total 0.5 mg/dL (0.2-1.2); Calc. Creatinine Clearance 43 mL/min (70-130); Calcium 8.8 mg/dL (7.8-10.44); Carbon Dioxide 22 mmol/L (22-29); Chloride 106 mmol/L (98-107); Globulin 3.3 g/dL (2.4-3.5); Glucose 194 mg/dL (70-105); Potassium 3.5 mmol/L (3.5-5.1); Protein, Total 6.1 g/dL (6.0-8.3); Sodium 135 mmol/L (136-145)
[2021-03-25] MEDS: HumaLOG 300 UNITS/3 ML VIAL SC PRN (06:16)
[2021-03-25] MEDS: Brimonidine Tartrate 0.2% Ophth Soln 5 ml Bottle R EYE SCH (08:42)
[2021-03-25] MEDS: Famotidine 20 MG TAB PO SCH (08:43)
[2021-03-25] MEDS: Gabapentin 100 MG CAP PO SCH ×2 (08:43→16:06)
[2021-03-25] MEDS: Aspirin 325 MG TAB PO SCH (08:44)
[2021-03-25] MEDS: cefTRIAXone\\ROCEPHIN 1 GM in Sodium Chloride 0.9% 100 ML IVPB SCH (08:49)
[2021-03-25] MEDS ORDERED: Enoxaparin Sodium 30 MG/0.3 ML SYRINGE SC SCH (09:00)
[2021-03-25 16:13] VITALS: TEMP 97.4
[2021-03-25 17:00] VITALS: BP 143/67
== END 2021-03-25 16:45 | disposition home or self-care (01) | DRG 637 ==
LOC: ERS 04:09 → ERHOLD 06:30 → 2SW 15:00
PROVIDERS: ADMIT Student in an Organized Health Care Education/Training Program; ATTEND Internal Medicine
DX: E11.10 Type 2 diabetes mellitus with ketoacidosis without coma (principal); Z23 Encounter for immunization; G93.41 Metabolic encephalopathy; N17.9 Acute kidney failure, unspecified; N39.0 Urinary tract infection, site not specified; I50.32 Chronic diastolic (congestive) heart failure; I13.0 Hypertensive heart and chronic kidney disease with heart failure and stage 1 through stage 4 chronic kidney disease, or unspecified chronic kidney disease; I24.8 Other forms of acute ischemic heart disease; I25.10 Atherosclerotic heart disease of native coronary artery without angina pectoris; E11.51 Type 2 diabetes mellitus with diabetic peripheral angiopathy without gangrene; E11.22 Type 2 diabetes mellitus with diabetic chronic kidney disease; F12.10 Cannabis abuse, uncomplicated; N18.32 Chronic kidney disease, stage 3b; F41.8 Other specified anxiety disorders; E78.2 Mixed hyperlipidemia; B18.2 Chronic viral hepatitis C; H40.9 Unspecified glaucoma; E11.40 Type 2 diabetes mellitus with diabetic neuropathy, unspecified; I08.3 Combined rheumatic disorders of mitral, aortic and tricuspid valves; Z89.612 Acquired absence of left leg above knee; Z88.5 Allergy status to narcotic agent; Z88.8 Allergy status to other drugs, medicaments and biological substances; Z79.899 Other long term (current) drug therapy; Z79.4 Long term (current) use of insulin; Z79.02 Long term (current) use of antithrombotics/antiplatelets; I25.2 Old myocardial infarction
CPT/HCPCS: 36415; 36416; 80053; 80061; 82140; 83036; 83605; 83735; 84100; 84443; 85025; 87040; 87086; 90471; 90686; 93005; 93306; 95816; 95819; 95957; G0008; J0696; J1650; J1815; J1956; J2405; J3370; J3480; J3490

== ENCOUNTER 2021-04-25 21:51 | Inpatient (IN) | payer OTHER ==
[2021-04-25] MEDS ORDERED: Lorazepam 2 MG/ML VIAL ONE (22:12)
[2021-04-25 22:47] LABS: #Monocytes 0.7 thou/uL (0.11-0.59); #Neutrophils 9.1 thou/uL (1.40-6.50); %Basophils 0.4 % (0.0-1.0); %Eosinophils 0.1 % (0.0-10.0); %Lymphocytes 9.6 % (21.0-51.0); %Monocytes 6.1 % (0.0-10.0); %Neutrophils 83.9 % (42.0-75.0); Mean Corpuscular HGB CONC 33.5 g/dL (32.0-36.0); Mean Corpuscular Hemoglobin 31.7 pg (27.0-31.0); Mean Corpuscular Volume 94.9 fL (78.0-98.0); Mean Platelet Volume 7.5 fL (7.4-10.4); Platelet Count 207 thou/uL (130-400); RBC Distribution Width 11.8 % (11.5-14.5); Red Blood Cell (RBC) Count 4.42 mill/uL (4.20-5.40); White Blood Cell (WBC) Count 10.8 thou/uL (4.8-10.8)
[2021-04-25 23:02] LABS: ALT (SGPT) 22 U/L (8-55); AST (SGOT) 30 U/L (5-34); Albumin 3.1 g/dL (3.5-5.0); Alkaline Phosphatase 74 U/L (40-110); Anion Gap 14 mmol/L (10-20); BUN (Urea Nitrogen) 12 mg/dL (9.8-20.1); Bilirubin, Total 0.3 mg/dL (0.2-1.2); Calc. Creatinine Clearance 0 mL/min (70-130); Calcium 8.2 mg/dL (7.8-10.44); Carbon Dioxide 25 mmol/L (22-29); Chloride 103 mmol/L (98-107); Globulin 2.9 g/dL (2.4-3.5); Glucose 295 mg/dL (70-105); Potassium 3.7 mmol/L (3.5-5.1); Sodium 138 mmol/L (136-145)
[2021-04-25] MEDS ORDERED: Enoxaparin Sodium 60 MG/0.6 ML SYRINGE ONE (23:18)
[2021-04-26 00:02] LABS: Troponin I 5.168 ng/mL (< 0.028)
[2021-04-26 00:10] LABS: CKMB 20.3 ng/mL (0-6.6)
[2021-04-26 00:56] LABS: SARS-CoV-2 NAA Rapid Test Not Detected (NotDetected)
[2021-04-26 03:06] LABS: Lactic Acid 1.4 mmol/L (0.5-2.2)
[2021-04-26 03:22] LABS: Critical Call Chem Troponin I 2NO.AL; Troponin I 9.925 ng/mL (< 0.028)
[2021-04-26 03:38] VITALS: BMI 20.5
[2021-04-26] MEDS ORDERED: Ondansetron ODT 4 MG TAB PO PRN (04:04)
[2021-04-26] MEDS ORDERED: HYDROcodone/Acetaminophen 5/325 mg Tablet PO PRN (04:04)
[2021-04-26] MEDS ORDERED: Nitroglycerin 0.4 MG TAB (25 Tab Bottle) SL PRN (04:06)
[2021-04-26 05:36] LABS: #Lymphocytes 1.5 thou/uL (1.20-3.40); #Neutrophils 9.4 thou/uL (1.40-6.50); %Basophils 0.1 % (0.0-1.0); %Eosinophils 0.1 % (0.0-10.0); %Lymphocytes 12.7 % (21.0-51.0); %Monocytes 8.1 % (0.0-10.0); Hemoglobin 14.6 g/dL (12.0-16.0); Mean Corpuscular HGB CONC 33.5 g/dL (32.0-36.0); Mean Corpuscular Volume 95.5 fL (78.0-98.0); Mean Platelet Volume 7.9 fL (7.4-10.4); Platelet Count 190 thou/uL (130-400); RBC Distribution Width 11.9 % (11.5-14.5); Red Blood Cell (RBC) Count 4.57 mill/uL (4.20-5.40); White Blood Cell (WBC) Count 11.9 thou/uL (4.8-10.8)
[2021-04-26 05:54] LABS: Anion Gap 15 mmol/L (10-20); BUN (Urea Nitrogen) 12 mg/dL (9.8-20.1); Calc. Creatinine Clearance 53 mL/min (70-130); Calcium 8.7 mg/dL (7.8-10.44); Carbon Dioxide 22 mmol/L (22-29); Chloride 104 mmol/L (98-107); Glucose 263 mg/dL (70-105); Potassium 3.4 mmol/L (3.5-5.1); Sodium 138 mmol/L (136-145)
[2021-04-26] MEDS: Ondansetron PF 4 MG/2 ML Vial IVP PRN ×3 (06:09→22:50)
[2021-04-26] MEDS ORDERED: Lorazepam 2 MG/ML VIAL SLOW IVP PRN (07:44)
[2021-04-26] MEDS ORDERED: Aspirin 325 MG TAB PO SCH (08:45)
[2021-04-26] MEDS ORDERED: Dextrose 5% in Water 1,000 ML IV PRN (09:03)
[2021-04-26] MEDS ORDERED: HumaLOG 300 UNITS/3 ML VIAL SC PRN (09:03)
[2021-04-26] MEDS ORDERED: Dextrose 50% Abboject 50 ML SYRINGE SLOW IVP PRN (09:03)
[2021-04-26 09:13] LABS: #Lymphocytes 1.4 thou/uL (1.20-3.40); #Monocytes 0.9 thou/uL (0.11-0.59); #Neutrophils 10.2 thou/uL (1.40-6.50); %Basophils 0.4 % (0.0-1.0); %Eosinophils 0.1 % (0.0-10.0); %Lymphocytes 11.2 % (21.0-51.0); %Monocytes 6.8 % (0.0-10.0); %Neutrophils 81.6 % (42.0-75.0); Hemoglobin 14.9 g/dL (12.0-16.0); Mean Corpuscular HGB CONC 35.2 g/dL (32.0-36.0); Mean Corpuscular Hemoglobin 33.4 pg (27.0-31.0); Mean Corpuscular Volume 94.9 fL (78.0-98.0); Mean Platelet Volume 7.6 fL (7.4-10.4); Platelet Count 184 thou/uL (130-400); RBC Distribution Width 11.8 % (11.5-14.5); Red Blood Cell (RBC) Count 4.46 mill/uL (4.20-5.40); White Blood Cell (WBC) Count 12.6 thou/uL (4.8-10.8)
[2021-04-26 09:32] LABS: Anion Gap 13 mmol/L (10-20); BUN (Urea Nitrogen) 12 mg/dL (9.8-20.1); Calc. Creatinine Clearance 53 mL/min (70-130); Calcium 8.9 mg/dL (7.8-10.44); Carbon Dioxide 24 mmol/L (22-29); Chloride 104 mmol/L (98-107); Glucose 267 mg/dL (70-105); Potassium 3.2 mmol/L (3.5-5.1); Sodium 138 mmol/L (136-145)
[2021-04-26] MEDS: Metoprolol Tartrate 25 MG TAB PO SCH ×2 (10:16→20:28)
[2021-04-26] MEDS: Aspirin Chewable 81 MG TAB PO SCH (10:16)
[2021-04-26] MEDS: Torsemide 20 MG TAB PO SCH (10:16)
[2021-04-26] MEDS: Sodium Chloride 0.9% 1,000 ML IV SCH ×2 (10:17→20:31)
[2021-04-26] MEDS: Clopidogrel Bisulfate 75 MG TAB PO SCH (10:17)
[2021-04-26] MEDS: Enoxaparin Sodium 60 MG/0.6 ML SYRINGE SC SCH ×2 (10:18→20:31)
[2021-04-26] MEDS: HumaLOG 300 UNITS/3 ML VIAL SC PRN ×2 (10:54→16:54)
[2021-04-26] MEDS: Brimonidine Tartrate 0.2% Ophth Soln 5 ml Bottle R EYE SCH ×2 (11:13→20:29)
[2021-04-26 12:26] LABS: Amphetamine Not Detected (NotDetected); Barbiturates Screen Not Detected (NotDetected); Benzodiazepine Screen Detected (NotDetected); Cocaine Metabolite Screen Not Detected (NotDetected); Methadone Not Detected (NotDetected); Methamphetamine Not Detected (NotDetected); Opiate Screen Not Detected (NotDetected); Oxycodone Screen Not Detected (NotDetected); Phencyclidine (PCP) Not Detected (NotDetected); THC/Cannabinoid Screen Detected (NotDetected); Tricyclic Screen Not Detected (NotDetected)
[2021-04-26] MEDS ORDERED: Potassium Chloride 20 MEQ TAB PO SCH (13:00)
[2021-04-26 13:30] LABS: Bacteria/HPF None Seen HPF (None Seen); Bilirubin Negative (Negative); Blood, Urine 3+ (Negative); Clarity Clear (Clear); Glucose, Urine (Dipstick) Greater than 1000 mg/dL (Negative); Ketone, Urine 10 mg/dL (Negative); Leukocyte Negative Leu/uL (Negative); Nitrite Negative (Negative); Protein, Urine (Dipstick) 300 mg/dL (Neg-Trace); Specific Gravity, Urine 1.026 (1.002-1.036); Squamous Epithelial 0-3 HPF (0-3); Urobilinogen Normal mg/dL (Less than 2); WBC/HPF 0-3 HPF (0-3)
[2021-04-26 13:31] LABS: Urine Culture Reflex No No
[2021-04-26] MEDS: Potassium Chloride 20 MEQ in Premix Bag 1 BAG IVPB SCH ×2 (14:04→16:49)
[2021-04-26] MEDS: Atorvastatin Calcium 40 MG TAB PO SCH (20:29)
[2021-04-27] MEDS: HumaLOG 300 UNITS/3 ML VIAL SC PRN ×2 (06:02→18:37)
[2021-04-27] MEDS ORDERED: hydrALAZINE 20 MG/ML VIAL SLOW IVP PRN (09:03)
[2021-04-27 09:56] LABS: #Lymphocytes 1.8 thou/uL (1.20-3.40); #Monocytes 0.9 thou/uL (0.11-0.59); #Neutrophils 9.2 thou/uL (1.40-6.50); %Basophils 0.3 % (0.0-1.0); %Eosinophils 0.3 % (0.0-10.0); %Lymphocytes 14.7 % (21.0-51.0); %Monocytes 7.3 % (0.0-10.0); %Neutrophils 77.4 % (42.0-75.0); Hemoglobin 14.7 g/dL (12.0-16.0); Mean Corpuscular HGB CONC 34.6 g/dL (32.0-36.0); Mean Corpuscular Hemoglobin 32.8 pg (27.0-31.0); Mean Platelet Volume 7.5 fL (7.4-10.4); Platelet Count 170 thou/uL (130-400); RBC Distribution Width 11.8 % (11.5-14.5); Red Blood Cell (RBC) Count 4.47 mill/uL (4.20-5.40); White Blood Cell (WBC) Count 11.9 thou/uL (4.8-10.8)
[2021-04-27 10:55] LABS: Anion Gap 17 mmol/L (10-20); BUN (Urea Nitrogen) 12 mg/dL (9.8-20.1); Calc. Creatinine Clearance 60 mL/min (70-130); Calcium 8.9 mg/dL (7.8-10.44); Carbon Dioxide 19 mmol/L (22-29); Chloride 105 mmol/L (98-107); Glucose 204 mg/dL (70-105); Potassium 3.7 mmol/L (3.5-5.1); Sodium 137 mmol/L (136-145)
[2021-04-27] MEDS: Enoxaparin Sodium 60 MG/0.6 ML SYRINGE SC SCH ×2 (11:09→21:48)
[2021-04-27] MEDS: Torsemide 20 MG TAB PO SCH (11:09)
[2021-04-27] MEDS: Aspirin Chewable 81 MG TAB PO SCH (11:09)
[2021-04-27] MEDS: Clopidogrel Bisulfate 75 MG TAB PO SCH (11:10)
[2021-04-27] MEDS: Metoprolol Tartrate 25 MG TAB PO SCH (11:11)
[2021-04-27] MEDS: Brimonidine Tartrate 0.2% Ophth Soln 5 ml Bottle R EYE SCH ×2 (11:12→21:49)
[2021-04-27] MEDS: Lantus 1000 UNITS/10 ML VIAL SC SCH (11:12)
[2021-04-27 11:23] LABS: Free T4 (Free Thyroxine) 1.14 ng/dL (0.70-1.48); Thyroid Stimulating Hormone 0.5928 uIU/mL (0.35-4.94)
[2021-04-27] MEDS: Metoclopramide HCl 10 MG/2 ML VIAL IVP SCH ×2 (16:50→21:48)
[2021-04-27] MEDS: Ondansetron PF 4 MG/2 ML Vial IVP PRN (18:37)
[2021-04-27] MEDS: Atorvastatin Calcium 40 MG TAB PO SCH (21:47)
[2021-04-28 05:21] LABS: #Lymphocytes 1.6 thou/uL (1.20-3.40); #Monocytes 0.8 thou/uL (0.11-0.59); %Basophils 0.3 % (0.0-1.0); %Eosinophils 0.4 % (0.0-10.0); %Lymphocytes 19.1 % (21.0-51.0); %Monocytes 9.5 % (0.0-10.0); %Neutrophils 70.6 % (42.0-75.0); Hemoglobin 14.8 g/dL (12.0-16.0); Mean Corpuscular HGB CONC 35.3 g/dL (32.0-36.0); Mean Corpuscular Volume 93.5 fL (78.0-98.0); Mean Platelet Volume 7.9 fL (7.4-10.4); Platelet Count 161 thou/uL (130-400); RBC Distribution Width 11.6 % (11.5-14.5); Red Blood Cell (RBC) Count 4.48 mill/uL (4.20-5.40); White Blood Cell (WBC) Count 8.4 thou/uL (4.8-10.8)
[2021-04-28] MEDS: Metoclopramide HCl 10 MG/2 ML VIAL IVP SCH ×3 (05:32→21:15)
[2021-04-28 05:41] LABS: Anion Gap 11 mmol/L (10-20); BUN (Urea Nitrogen) 16 mg/dL (9.8-20.1); Calc. Creatinine Clearance 64 mL/min (70-130); Calcium 8.6 mg/dL (7.8-10.44); Carbon Dioxide 29 mmol/L (22-29); Chloride 97 mmol/L (98-107); Glucose 188 mg/dL (70-105); Sodium 134 mmol/L (136-145)
[2021-04-28 05:45] LABS: Potassium 2.9 mmol/L (3.5-5.1)
[2021-04-28] MEDS ORDERED: Electrolyte Replacement Protocol 1 EACH FS SCH (06:15)
[2021-04-28] MEDS: Potassium Chloride 20 MEQ TAB PO SCH ×2 (06:21→18:23)
[2021-04-28 08:10] LABS: Magnesium 1.5 mg/dL (1.6-2.6)
[2021-04-28] MEDS ORDERED: Magnesium 2 GM/50 ML 2 GM in Premix Bag 1 BAG IVPB SCH (08:45)
[2021-04-28] MEDS: Enoxaparin Sodium 60 MG/0.6 ML SYRINGE SC SCH ×2 (09:20→20:26)
[2021-04-28] MEDS: Torsemide 20 MG TAB PO SCH (09:20)
[2021-04-28] MEDS: Aspirin Chewable 81 MG TAB PO SCH (09:20)
[2021-04-28] MEDS: Brimonidine Tartrate 0.2% Ophth Soln 5 ml Bottle R EYE SCH ×2 (09:21→20:26)
[2021-04-28] MEDS: Lantus 1000 UNITS/10 ML VIAL SC SCH (09:21)
[2021-04-28] MEDS: Clopidogrel Bisulfate 75 MG TAB PO SCH (09:21)
[2021-04-28 10:47] LABS: Syphilis Antibody Nonreactive (Nonreactive); Syphilis Antibody Index 0.78 S/CO (<1.00 Non-Reactive)
[2021-04-28] MEDS: Acetaminophen 325 MG TAB PO PRN ×2 (14:46→23:13)
[2021-04-28 15:51] LABS: Anion Gap 11 mmol/L (10-20); BUN (Urea Nitrogen) 17 mg/dL (9.8-20.1); Calc. Creatinine Clearance 55 mL/min (70-130); Calcium 8.4 mg/dL (7.8-10.44); Carbon Dioxide 28 mmol/L (22-29); Chloride 96 mmol/L (98-107); Glucose 246 mg/dL (70-105); Potassium 3.4 mmol/L (3.5-5.1); Sodium 132 mmol/L (136-145)
[2021-04-28] MEDS: HumaLOG 300 UNITS/3 ML VIAL SC PRN (18:25)
[2021-04-28] MEDS ORDERED: Potassium Chloride 20 MEQ TAB PO SCH (20:15)
[2021-04-28] MEDS: Atorvastatin Calcium 40 MG TAB PO SCH (20:25)
[2021-04-29 05:29] LABS: #Eosinphils 0.1 thou/uL (0.0-0.7); #Monocytes 0.7 thou/uL (0.11-0.59); #Neutrophils 3.3 thou/uL (1.40-6.50); %Basophils 0.8 % (0.0-1.0); %Eosinophils 2.5 % (0.0-10.0); %Lymphocytes 18.8 % (21.0-51.0); %Monocytes 13.8 % (0.0-10.0); %Neutrophils 64.1 % (42.0-75.0); Hemoglobin 15.2 g/dL (12.0-16.0); Mean Corpuscular HGB CONC 35.3 g/dL (32.0-36.0); Mean Corpuscular Hemoglobin 33.4 pg (27.0-31.0); Mean Corpuscular Volume 94.5 fL (78.0-98.0); Mean Platelet Volume 11.1 fL (7.4-10.4); Platelet Count 151 thou/uL (130-400); RBC Distribution Width 13.1 % (11.5-14.5); Red Blood Cell (RBC) Count 4.55 mill/uL (4.20-5.40); White Blood Cell (WBC) Count 5.1 thou/uL (4.8-10.8)
[2021-04-29] MEDS: Metoclopramide HCl 10 MG/2 ML VIAL IVP SCH ×2 (06:16→15:24)
[2021-04-29 08:30] LABS: Anion Gap 15 mmol/L (10-20); BUN (Urea Nitrogen) 20 mg/dL (9.8-20.1); Calc. Creatinine Clearance 57 mL/min (70-130); Calcium 8.6 mg/dL (7.8-10.44); Carbon Dioxide 22 mmol/L (22-29); Chloride 104 mmol/L (98-107); Glucose 142 mg/dL (70-105); Magnesium 1.9 mg/dL (1.6-2.6); Sodium 136 mmol/L (136-145)
[2021-04-29] MEDS ORDERED: Magnesium 2 GM/50 ML 2 GM in Premix Bag 1 BAG IVPB SCH (09:00)
[2021-04-29] MEDS ORDERED: Iopamidol 370 76% 100 ML VIAL ONE (09:25)
[2021-04-29] MEDS ORDERED: Fentanyl 100 MCG/2 ML VIAL ONE (10:07)
[2021-04-29] MEDS ORDERED: Midazolam HCl 2 mg/2 ml Vial ONE (10:07)
[2021-04-29] MEDS: Brimonidine Tartrate 0.2% Ophth Soln 5 ml Bottle R EYE SCH (13:18)
[2021-04-29] MEDS: Enoxaparin Sodium 60 MG/0.6 ML SYRINGE SC SCH (13:18)
[2021-04-29] MEDS: Lantus 1000 UNITS/10 ML VIAL SC SCH (13:20)
[2021-04-29] MEDS: Torsemide 20 MG TAB PO SCH (15:23)
[2021-04-29] MEDS: Aspirin Chewable 81 MG TAB PO SCH (15:23)
[2021-04-29] MEDS: Clopidogrel Bisulfate 75 MG TAB PO SCH (15:24)
[2021-04-29 15:39] VITALS: BP 161/74; TEMP 97.7
== END 2021-04-29 17:00 | disposition home or self-care (01) | DRG 280 ==
LOC: ERS 21:51 → ERHOLD 23:08 → 2NO 04-26 02:13
PROVIDERS: ADMIT Student in an Organized Health Care Education/Training Program; ATTEND Internal Medicine
PROC: 4A023N7 Measurement of Cardiac Sampling and Pressure, Left Heart, Percutaneous Approach (ICD-10-PCS; principal; 2021-04-29)
PROC: B2131ZZ Fluoroscopy of Multiple Coronary Artery Bypass Grafts using Low Osmolar Contrast (ICD-10-PCS; 2021-04-29)
DX: I21.4 Non-ST elevation (NSTEMI) myocardial infarction (principal); G93.41 Metabolic encephalopathy; I50.32 Chronic diastolic (congestive) heart failure; I13.0 Hypertensive heart and chronic kidney disease with heart failure and stage 1 through stage 4 chronic kidney disease, or unspecified chronic kidney disease; Z20.822 Contact with and (suspected) exposure to COVID-19; I25.10 Atherosclerotic heart disease of native coronary artery without angina pectoris; N18.32 Chronic kidney disease, stage 3b; E11.65 Type 2 diabetes mellitus with hyperglycemia; F41.8 Other specified anxiety disorders; E11.40 Type 2 diabetes mellitus with diabetic neuropathy, unspecified; H40.9 Unspecified glaucoma; E78.2 Mixed hyperlipidemia; E11.22 Type 2 diabetes mellitus with diabetic chronic kidney disease; E11.51 Type 2 diabetes mellitus with diabetic peripheral angiopathy without gangrene; Z79.4 Long term (current) use of insulin; Z88.5 Allergy status to narcotic agent; Z88.8 Allergy status to other drugs, medicaments and biological substances
CPT/HCPCS: 36415; 36416; 70450; 75625; 80048; 80306; 81001; 82140; 82553; 82607; 83605; 83735; 84425; 84439; 84443; 84481; 84484; 85025; 86780; 93005; 93010; 93459; 94760; 96372; 96374; 99152; 99153; J0360; J1650; J1815; J2060; J2250; J2405; J2765; J3010; J3475; J3480; J7050; Q9967; U0002